=== PATIENT | female | born 1945 | race Caucasian/White ===

== ENCOUNTER → 2019-12-26 14:18 | Outpatient (BNVA) | payer MEDICARE, OTHER, SELFPAY | PROVIDERS: Family Provider Nurse Practitioner Family; PCP Nurse Practitioner Family; Visit Provider Specialist | DX: G20 Parkinson's disease (principal) | CPT/HCPCS: 99213 ==

== ENCOUNTER → 2020-09-17 09:15 | Outpatient (BNVA) | payer MEDICARE, OTHER, SELFPAY | PROVIDERS: Family Provider Nurse Practitioner Family; PCP Nurse Practitioner Family; Visit Provider Nurse Practitioner Family | DX: M20.41 Other hammer toe(s) (acquired), right foot (principal); M20.42 Other hammer toe(s) (acquired), left foot; I10 Essential (primary) hypertension; Z13.6 Encounter for screening for cardiovascular disorders | CPT/HCPCS: 80048; 80061; 82947; 83036 ==

== ENCOUNTER → 2020-12-25 14:18 | Outpatient (BNVA) | payer MEDICARE, OTHER, SELFPAY | PROVIDERS: Family Provider Nurse Practitioner Family; PCP Nurse Practitioner Family; Visit Provider Specialist | DX: G62.9 Polyneuropathy, unspecified (principal); R26.89 Other abnormalities of gait and mobility | CPT/HCPCS: 99214 ==

== ENCOUNTER → 2021-05-01 10:49 | Outpatient (BNVA) | payer MEDICARE, OTHER, SELFPAY | PROVIDERS: Family Provider Nurse Practitioner Family; PCP Nurse Practitioner Family; Visit Provider Nurse Practitioner Family | DX: I10 Essential (primary) hypertension (principal) | CPT/HCPCS: 80048 ==

== ENCOUNTER 2021-11-17 15:54 | Emergency (ER) | payer MEDICARE, OTHER, SELFPAY ==
[2021-11-17 16:01] VITALS: BP 183/73; PULSE 78; RESP 21; TEMP 36.9; O2SAT 99; BMI 22.2
--- NOTE | 2021-11-17 16:08 | XRR_ITS ---
PROCEDURE INFORMATION: Exam: XR Chest Exam date and time: 11/17/2021 4:34 PM Age: 76 years old Clinical indication: Other: Syncope TECHNIQUE: Imaging protocol: XR of the chest. Views: 1 view. COMPARISON: No relevant prior studies available. FINDINGS: Lungs: Lungs are clear bilaterally. Pleural spaces: No pleural effusion. No pneumothorax. Heart/Mediastinum: Stable mild enlargement of the cardiac silhouette. Mediastinal contours are unremarkable. Vasculature: Stable vascular calcifications in the aorta. Stable tortuosity of the aorta. Bones/joints: Unremarkable for age. XR/XR chest 1V portable [id number] IMPRESSION: 1. No acute cardiopulmonary process. 2. Incidental/nonacute findings are listed in the report.
--- NOTE | 2021-11-17 16:08 | CTR_ITS ---
PROCEDURE INFORMATION: Exam: CT Head Without Contrast Exam date and time: 11/17/2021 5:02 PM Age: 76 years old Clinical indication: Alteration of consciousness; Syncope and collapse TECHNIQUE: Imaging protocol: Computed tomography of the head without contrast. Sagittal and coronal reformatted images were created and reviewed. Radiation optimization: All CT scans at this facility use at least one of these dose optimization techniques: automated exposure control; mA and/or kV adjustment per patient size (includes targeted exams where dose is matched to clinical indication); or iterative reconstruction. COMPARISON: No relevant prior studies available. RADIATION DOSE METRICS: Total DLP (mGy-cm): 688.3 FINDINGS: Brain: No acute intracranial hemorrhage. No acute infarct. No intra-axial or extra-axial masses. Garcia-white matter differentiation is preserved. No cerebral edema. No extra-axial fluid collections. No midline shift. Mild atrophy of the brain parenchyma. Mildly decreased attenuation in the deep white matter, consistent with mild chronic microangiopathic change. Old lacunar infarct in the right basal ganglia and right ventricular white matter. No evidence for Chiari 1 malformation. Cerebral ventricles: No hydrocephalus. Paranasal sinuses: Visualized paranasal sinuses are clear. Mastoid air cells: Mastoid air cells are clear bilaterally. Orbital cavities: No acute abnormality in the visualized orbits. Vasculature: Atherosclerotic changes in the visualized arteries. Bones/joints: No acute fracture. Soft tissues: The extracranial soft tissues are unremarkable. CT/CT head wo con* [id number] IMPRESSION: 1. No acute abnormality of the brain. 2. Mild atrophy of the brain parenchyma. 3. Mild chronic white matter microangiopathic change. 4. Old lacunar infarct in the right basal ganglia and right ventricular white matter. 5. Incidental/nonacute findings are listed in the report.
--- NOTE | 2021-11-17 16:09 | ECG_ITS ---
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 Measurements Intervals [place] Rate: 85 P: 74 MA: 196 QRS: 58 QRSD: 86 T: 63 QT: 379 QTc: 451 Interpretive Statements SINUS RHYTHM POSSIBLE RIGHT ATRIAL ENLARGEMENT [0.25mV P-WAVE] POSSIBLE LEFT ATRIAL ENLARGEMENT [-0.1mV P-WAVE IN V1/V2] POSSIBLE LEFT VENTRICULAR HYPERTROPHY [VOLTAGE CRITERIA PLUS LAE OR QRS WIDENING] No previous ECG available for comparison Electronically Signed On 11-17-2021 19:25:49 CDT by Mortzea Bardales M.D. [id number]
[2021-11-17 16:12] VITALS: BP 200/91; PULSE 86; RESP 20; O2SAT 98
--- NOTE | 2021-11-17 16:21 | W.ED.NEUROSD ---
HPI - Neuro Symptoms/Deficit General: Chief Complaint: Neuro Symptoms/Deficit Stated Complaint: SYNCOPE Time Seen by Provider: 11/17/21 15:57 History of Present Illness: 76-year-old female presents following a syncope. Patient brought in by EMS. At this time she has no symptoms. Patient reports that she was at home, suddenly kitchen table and the next thing he knows she woke up between the kitchen table and the sink. Patient has no recollection of what happened. Patient reports she has a history of Parkinson's and took her medication prior to mormon. That she came home and ate around 1230-1. Patient states that this time she has no complaints, she denies any chest pain, shortness of breath or other abnormalities prior to her syncope event. Review of Systems General: Reports: 10 or more systems reviewed and unremarkable except in HPI and below Neuro: Reports: other (The syncope) [facility] ED PFS: Medical History (Updated 11/17/21 @ 18:06 by Mac Colbert DO) Hammertoes of both feet HTN (hypertension) Parkinson disease Surgical History (Updated 09/23/21 @ 10:22 by BRETT Steinberg) H/O mastectomy H/O ovarian cystectomy H/O total knee replacement History of back surgery Family History Mother CAD (coronary artery disease) Diabetes Father CAD (coronary artery disease) Diabetes Social History Smoking and tobacco status: never smoked Physical Exam Const: COMMON NORMALS: no acute distress, average body habitus, patient oriented x3 and healthy appearing Eye: COMMON NORMALS: Equal, round and reactive pupils present and EOMs intact bilaterally PUPIL: Yes Equal, round and reactive pupils present Neck/C-Spine: COMMON NORMALS: full ROM Chest: COMMONS NORMALS: normal inspection of the chest Resp: COMMON NORMALS: normal respiratory effort, No retractions, No use of accessory muscles and clear to auscultation bilaterally AUSCULTATION: clear to auscultation bilaterally Cardio: COMMON NORMALS: regular rate, regular rhythm and Peripheral pulses 2+ throughout RATE: regular rate RHYTHM: regular rhythm PERIPHERAL PULSES: Peripheral pulses 2+ throughout GI: COMMON NORMALS: Normal to inspection, nondistended, normoactive bowel sounds present, Soft to palpation and non-tender PALPATION: Yes Soft to palpation Neuro: COMMON NORMALS: patient oriented x3, CN's II-XII intact bilaterally, moves all extremities, no focal motor deficits and no sensory deficits noted Psych: COMMON NORMALS: mental status grossly normal, Normal thought process present, cooperative, normal affect, speech normal and activity/motor behavior normal SPEECH: Yes normal speech THOUGHT PROCESS: Normal thought process present Skin: COMMON NORMALS: no rashes or lesions noted, no wounds and turgor normal GENERAL SKIN EXAM: no rashes or lesions noted and turgor normal Course Vital Signs: Vital signs: Vital Signs Temperature 98.4 F 11/17/21 16:01 Pulse Rate 101 H 11/17/21 17:23 Respiratory Rate 16 11/17/21 17:23 Blood Pressure 187/65 11/17/21 17:23 Pulse Oximetry 99 11/17/21 17:23 MDM - Neuro Symptoms/Deficit Medical Decision Making Patient with a urinary tract infection otherwise normal findings. We will start her on antibiotic. She should follow-up with her primary care provider in a couple days for recheck of symptoms. Patient was stable and discharged home Lab Data : 11/17/21 16:45 11/17/21 17:20 Radiology Impressions Chest X-Ray 11/17/21 16:08 IMPRESSION: 1. No acute cardiopulmonary process. 2. Incidental/nonacute findings are listed in the report. Head CT 11/17/21 16:08 IMPRESSION: 1. No acute abnormality of the brain. 2. Mild atrophy of the brain parenchyma. 3. Mild chronic white matter microangiopathic change. 4. Old lacunar infarct in the right basal ganglia and right ventricular white matter. 5. Incidental/nonacute findings are listed in the report. Laboratory Results WBC 6.1 10^3/uL (4.0-10.0) 11/17/21 16:45 RBC 4.50 10^6/uL (4.1-5.3) 11/17/21 16:45 Hgb 14.5 g/dL (11.5-15.3) 11/17/21 16:45 Hct 46.7 % (37.0-47.0) 11/17/21 16:45 MCV 103.8 fl (81-99) H 11/17/21 16:45 MCH 32.2 pg (28.0-34.0) 11/17/21 16:45 MCHC 31.0 g/dL (30.0-36.0) 11/17/21 16:45 RDW 13.8 % (12.1-15.1) 11/17/21 16:45 Plt Count 158 10^3/cmm (130-400) 11/17/21 16:45 MPV 11.9 fL (7.4-10.4) H 11/17/21 16:45 Neut % (Auto) 65.8 % 11/17/21 16:45 Lymph % (Auto) 18.8 % 11/17/21 16:45 [place] % (Auto) 12.8 % 11/17/21 16:45 Eos % (Auto) 0.8 % 11/17/21 16:45 Baso % (Auto) 0.7 % 11/17/21 16:45 Neut # (Auto) 4.02 10^3/uL (1.8-7.7) 11/17/21 16:45 Lymph # (Auto) 1.2 10^3/uL (0.8-4.8) 11/17/21 16:45 [place] # (Auto) 0.8 10^3/uL (0.2-0.9) 11/17/21 16:45 Eos # (Auto) 0.1 10^3/uL (0.0-0.8) 11/17/21 16:45 Baso # (Auto) 0.0 10^3/uL (0.0-0.1) 11/17/21 16:45 Nucleated RBC % (auto) 0 % 11/17/21 16:45 Nucleated RBCs # 0.0 /100WBC 11/17/21 16:45 Sodium 141 mmol/L (136-145) 11/17/21 17:20 Potassium 4.0 mmol/L (3.5-5.1) 11/17/21 17:20 Chloride 104 mmol/L (98-107) 11/17/21 17:20 Carbon Dioxide 25 mmol/L (22-29) 11/17/21 17:20 Anion Gap 16.0 (5-19) 11/17/21 17:20 BUN 21 mg/dL (8-23) 11/17/21 17:20 Creatinine 0.7 mg/dL (0.5-0.9) 11/17/21 17:20 GFR Calculation Not Reportable 11/17/21 17:20 Glucose 100 mg/dL (65-115) 11/17/21 17:20 Calculated Osmolality 295 mOsm/kg (285-295) 11/17/21 17:20 Calcium 9.0 mg/dL (8.5-10.5) 11/17/21 17:20 Magnesium 2.3 mg/dL (1.7-2.3) 11/17/21 17:20 Total Bilirubin 0.4 mg/dL (0.15-1.2) 11/17/21 17:20 AST 21 U/L (0-32) 11/17/21 17:20 ALT < 5 U/L (0-33) 11/17/21 17:20 Alkaline Phosphatase 101 IU/L (35-105) 11/17/21 17:20 Troponin T Gen 5 ng/L 17 ng/L (0-10) H 11/17/21 17:20 C-Reactive Protein 3.0 mg/L (0.0-4.9) 11/17/21 17:20 Total Protein 7.1 g/dL (6.6-8.7) 11/17/21 17:20 Albumin 4.3 g/dL (3.5-5.2) 11/17/21 17:20 Globulin 2.8 g/dL (1.3-4.6) 11/17/21 17:20 Urine Color Straw (Yellow) 11/17/21 16:28 Urine Appearance Clear (CLEAR) 11/17/21 16:28 Urine pH 7 (5-7) 11/17/21 16:28 Ur Specific [place] 1.010 (1.005-1.030) 11/17/21 16:28 Urine Protein Neg (Negative) 11/17/21 16:28 Urine Glucose (UA) Norm (Normal) 11/17/21 16:28 Urine Ketones Negative (Negative) 11/17/21 16:28 Urine Blood Neg (Negative) 11/17/21 16:28 Urine Nitrate Positive (Negative) H 11/17/21 16:28 Urine Bilirubin Neg (Negative) 11/17/21 16:28 Urine Urobilinogen Norm mg/dL (Negative) 11/17/21 16:28 Ur Leukocyte Esterase Negative (Negative) 11/17/21 16:28 Urine RBC 0-4 /hpf (0-2) H 11/17/21 16:28 Urine WBC 5-10 /hpf (0-5) H 11/17/21 16:28 Ur Squamous Epith Cells 0-4 /hpf (0-5) H 11/17/21 16:28 Amorphous Sediment Not Reportable 11/17/21 16:28 Urine Bacteria 3+ /hpf (NONE) H 11/17/21 16:28 Discharge Plan Discharge Patient Disposition: Home Clinical Impression: Acute UTI, Syncope and collapse Condition: Stable Prescriptions: New cephalexin 500 mg capsule 500 mg PO BID 7 Days Qty: 14 0RF No Action acetaminophen [Tylenol Extra Strength] 500 mg tablet 500 mg PO Q6H PRN0RF calcium carbonate-vitamin D3 [Calcium 600 with Vitamin D3] 600 mg(1,500mg) -500 unit capsule PO DAILY 0RF multivitamin Tablet 1 tab PO DAILY 0RF carbidopa-levodopa 25-100 mg tablet See Rx Instructions .ROUTE .COMPLEX Qty: 90 0RF Dose Instruction: TAKE 1 TABLET BY MOUTH THREE TIMES DAILY Rx Instructions: TAKE 1 TABLET BY MOUTH THREE TIMES DAILY carvedilol 25 mg tablet See Rx Instructions .ROUTE .COMPLEX Qty: 180 3RF Dose Instruction: TAKE 1 TABLET BY MOUTH TWICE DAILY (MUST TAKE WITH A MEAL/FOOD) Rx Instructions: TAKE 1 TABLET BY MOUTH TWICE DAILY (MUST TAKE WITH A MEAL/FOOD) enalapril maleate 10 mg tablet See Rx Instructions .ROUTE .COMPLEX Qty: 180 3RF Dose Instruction: TAKE 1 TABLET BY MOUTH TWICE DAILY Rx Instructions: TAKE 1 TABLET BY MOUTH TWICE DAILY (DME) trapeze bar See Rx Instructions .Route .MEDSUPPLY Qty: 1 0RF Rx Instructions: Utilize as Directed Discharge Orders: Discharge ED (Routine); Ordered 11/17/21 Ordered By: Mac Colbert Referrals: Myla Bella FNP [Primary Care Provider] - Discharge Diet: Usual diet Discharge Activity: Resume usual activity Patient Instructions: Urinary Tract Infection in Women (DC), Syncope (DC), Opioid Safety Activity Restrictions/Additional Instructions: follow up with pcp Coding Level of Care Code ED Percussion Tuner for Chg Fwd Exam Comprehensive
[2021-11-17 16:42] VITALS: BP 200/91; PULSE 89; RESP 19; O2SAT 98
[2021-11-17 16:48] LABS: Add Urine Culture? Yes; Add Urine Microscopic? YES; Bacteria Urine 3+ /hpf; Bilirubin Urine Neg (Negative); Blood Urine Neg (Negative); Glucose Urine UA Norm (Normal); Ketones Urine Negative (Negative); Leukocyte Esterase Urine Negative (Negative); Nitrate Urine Positive (Negative); Protein Urine Neg (Negative); RBC Urine 0-4 /hpf (0-2); Squamous Epithelial Cell Urine 0-4 /hpf (0-5); Urine Appearance Clear (CLEAR); Urine Color Straw (Yellow); Urobilinogen Urine Norm (Negative); pH Urine 7 (5-7)
[2021-11-17 16:52] LABS: Basophils % 0.7 %; Eosinophils # 0.1 10^3/uL (0.0-0.8); Eosinophils % 0.8 %; Hematocrit 46.7 % (37.0-47.0); Hemoglobin 14.5 g/dL (11.5-15.3); Lymphocytes # 1.2 10^3/uL (0.8-4.8); Lymphocytes % 18.8 %; Mean Corpuscular Hemoglobin 32.2 pg (28.0-34.0); Mean Corpuscular Volume 103.8 fl (81-99); Mean Platelet Volume 11.9 fL (7.4-10.4); Monocytes # 0.8 10^3/uL (0.2-0.9); Monocytes % 12.8 %; Neutrophils # 4.02 10^3/uL (1.8-7.7); Neutrophils % 65.8 %; Nucleated Red Blood Cells % 0 %; Platelet Count 158 10^3/cmm (130-400); Red Cell Distribution Width 13.8 % (12.1-15.1); White Blood Count 6.1 10^3/uL (4.0-10.0)
[2021-11-17 17:23] VITALS: BP 187/65; PULSE 101; RESP 16; O2SAT 99
[2021-11-17 17:54] LABS: Troponin T (5th) Once 17 ng/L (0-10)
[2021-11-17 17:58] LABS: Alanine Aminotransferase < 5 U/L (0-33); Albumin Level 4.3 g/dL (3.5-5.2); Alkaline Phosphatase 101 IU/L (35-105); Aspartate Amino Transferase 21 U/L (0-32); Blood Urea Nitrogen 21 mg/dL (8-23); Carbon Dioxide 25 mmol/L (22-29); Chloride 104 mmol/L (98-107); Globulin 2.8 g/dL (1.3-4.6); Glucose 100 mg/dL (65-115); Magnesium 2.3 mg/dL (1.7-2.3); Osmolality Calculated 295 mOsm/kg (285-295); Sodium 141 mmol/L (136-145); Total Bilirubin 0.4 mg/dL (0.15-1.2); Total Protein 7.1 g/dL (6.6-8.7)
--- NOTE | 2021-11-17 19:24 | PC.NURSE ---
HOUSEKEEPING ACCIDENTALLY THREW DISCHARGE SIGNATURE PAGE INTO SHREDS BOX.
== END 2021-11-17 19:25 | disposition home or self-care (01) ==
PROVIDERS: Emergency Provider Student in an Organized Health Care Education/Training Program; Family Provider Nurse Practitioner Family; PCP Nurse Practitioner Family
DX: N39.0 Urinary tract infection, site not specified (principal); R55 Syncope and collapse; G20 Parkinson's disease; I10 Essential (primary) hypertension
CPT/HCPCS: 70450; 71045; 80053; 81001; 83735; 84484; 85025; 86140; 87077; 87086; 87186; 93005; 99283

== ENCOUNTER → 2021-12-25 09:42 | Outpatient (BNVA) | payer MEDICARE, OTHER, SELFPAY | PROVIDERS: Family Provider Nurse Practitioner Family; PCP Nurse Practitioner Family; Visit Provider Specialist | DX: G20 Parkinson's disease (principal); G62.9 Polyneuropathy, unspecified; R55 Syncope and collapse; M25.361 Other instability, right knee | CPT/HCPCS: 99214; 99215 ==

== ENCOUNTER → 2021-12-30 12:48 | Outpatient (BNVA) | payer MEDICARE, OTHER, SELFPAY | PROVIDERS: Family Provider Nurse Practitioner Family; PCP Nurse Practitioner Family; Visit Provider Internal Medicine Cardiovascular Disease | DX: R55 Syncope and collapse (principal); I49.1 Atrial premature depolarization; I49.3 Ventricular premature depolarization | CPT/HCPCS: 93229 ==

== ENCOUNTER 2022-02-07 09:13 | Outpatient (CLI) | payer MEDICARE, OTHER, SELFPAY ==
--- NOTE | 2022-02-07 09:30 | USCV_ITS ---
Luly Castro Age: 76 Gender: F : 1945 Exam Date: 02/07/2022 09:37 Ordering Phys: Abeba Brito MD Technologist: ABBI [place] [facility] [place]: [place] BP: 178 / 76 HR: 66 Rhythm: Sinus Technical Quality: MEASUREMENTS (Male / Female) Normal Values 2D ECHO LV Diastolic Diameter PLAX 4.3 cm 4.2 - 5.9 / 3.9 - 5.3 cm LV Systolic Diameter PLAX 3.3 cm IVS Diastolic Thickness 1.1 cm 0.6 - 1.0 / 0.6 - 0.9 cm IVS Systolic Thickness 1.2 cm LVPW Diastolic Thickness 1.2 cm 0.6 - 1.0 / 0.6 - 0.9 cm LVPW Systolic Thickness 1.3 cm LVOT Diameter 2.0 cm LV Ejection Fraction 2D Teich 46.3 % LV Ejection Fraction MOD 2C 65.6 % LV Ejection Fraction 2C AL 66.7 % LA Diameter 4.0 cm RA Width 4.3 cm RA Height 4.7 cm Aorta at Sinotubular Diameter 2.7 cm M-MODE MV E Point Septal Separation 0.9 cm DOPPLER AV Peak Velocity 111.0 cm/s LVOT Peak Velocity 90.0 cm/s AV Area Cont Eq vti 2.2 cm squared AV Area Cont Eq pk 2.6 cm squared MV Area PHT 3.1 cm squared Mitral E to A Ratio 0.8 MV E' Velocity 44.0 cm/s Mitral E to MV E' Ratio 11.8 Mitral E to LV E' Lateral Ratio 11.8 Mitral E to LV E' Septal Ratio 11.8 TR Peak Velocity 289.3 cm/s TR Peak Gradient 33.5 mmHg Right Atrial Pressure 8.0 mmHg Pulmonary Artery Systolic Pressu 41.5 mmHg PV Peak Velocity 105.0 cm/s FINDINGS Left Ventricle Normal left ventricular size. LV systolic function is normal with EF of 55-60 %. No regional wall motion abnormalities are seen. Grade 1 diastolic dysfunction Right Ventricle The right ventricle is normal in size and function. Right Atrium The right atrium is normal in size. Left Atrium The left atrium is normal in size. Mitral Valve Structurally normal mitral valve without significant stenosis or prolapse. There is mild mitral regurgitation. Aortic Valve Structurally normal aortic valve without significant sclerosis or stenosis. There is trace aortic regurgitation. Tricuspid Valve Structurally normal tricuspid valve without significant stenosis. Trace tricuspid regurgitation. Pulmonary artery systolic pressure is normal. Pulmonic Valve Not well visualized Pericardium Normal pericardium without effusion. Aorta Normal ascending aorta dimension. IVC CONCLUSIONS LV systolic function is normal with EF of 55-60 %. Grade 1 diastolic dysfunction. Mild mitral regurgitation. Trace aortic regurgitation. Trace tricuspid regurgitation. No comparison studies are available Morteza Bardales MD (Electronically Signed) Final Date: 16 February 2022 00:27 S
== END 2022-02-07 09:14 | disposition home or self-care (01) ==
LOC: RAD 09:13
PROVIDERS: Family Provider Nurse Practitioner Family; PCP Nurse Practitioner Family; Visit Provider Specialist
DX: R00.2 Palpitations (principal); I08.3 Combined rheumatic disorders of mitral, aortic and tricuspid valves
CPT/HCPCS: 93306

== ENCOUNTER → 2022-06-30 10:16 | Outpatient (BNVA) | payer MEDICARE, OTHER, SELFPAY | PROVIDERS: Family Provider Nurse Practitioner Family; PCP Nurse Practitioner Family; Visit Provider Specialist | DX: G20 Parkinson's disease (principal); L57.0 Actinic keratosis; M19.90 Unspecified osteoarthritis, unspecified site; G72.9 Myopathy, unspecified; G62.9 Polyneuropathy, unspecified; R53.1 Weakness; Z91.81 History of falling; S46.291A Other injury of muscle, fascia and tendon of other parts of biceps, right arm, initial encounter; X58.XXXA Exposure to other specified factors, initial encounter | CPT/HCPCS: 99215 ==

== ENCOUNTER 2022-07-15 16:00 | Emergency (ER) | payer MEDICARE, OTHER, SELFPAY ==
[2022-07-15 16:20] VITALS: BP 176/82; PULSE 98; RESP 16; TEMP 36.9; O2SAT 99
--- NOTE | 2022-07-15 16:32 | ED_ITS ---
HPI - Fall General: Chief Complaint: Fall Stated Complaint: Weakness, Falls Time Seen by Provider: 07/15/22 16:32 History of Present Illness: Patient is in today after a fall. Patient reports that yesterday she fell 3 different times. She reports that 1 time she was trying to put her coat on and lost her balance falling onto her right side on the floor. She reports that the next time she was bending over to pick something up off the floor lost her balance and fell behind the heater hitting her head on the heater. She denies any loss of consciousness. She reports that the next time she fell she was walking to the bathroom and her feet got stuck would not move, which is common with her Parkinson's, and she fell forward onto her right side again. She reports that she does fall with Parkinson's but usually is able to be more steady than she was yesterday. She reports that she has not had any new changes no fever. She denies any urinary symptoms. She reports that she does not have any headache since the fall. She has only minimal right shoulder and right side back pain. She reports that she is able to bear weight and is not having any hip or knee pain. She chronically has foot pain but she states that this is no different from her baseline. She denies any neurologic changes. She feels like her Parkinson's is worsening somewhat. She has had a more pronounced tremor over the past couple of weeks. She denies that she was getting dizzy causing her falls. She denies passing out. Associated symptoms-after fall: Reports difficulty walking; Denies abdominal pain or chest pain Review of Systems Const: Denies: fever(s), chills or body aches Card: Denies: chest pain, palpitations or irregular heart rhythm Resp: Denies: dyspnea, productive cough or non-productive cough GI: Denies: abdominal pain, nausea or vomiting : Denies: flank pain, difficulty voiding or dysuria Musc: Reports: other (Parkinson's with generalized weakness) Neuro: Reports: lack of coordination, difficulty walking and other (Parkinson's) [facility] ED PFSH: Medical History Hammertoes of both feet HTN (hypertension) Parkinson disease Surgical History H/O mastectomy H/O ovarian cystectomy H/O total knee replacement History of back surgery Family History Mother CAD (coronary artery disease) Diabetes Father CAD (coronary artery disease) Diabetes Social History Smoking and tobacco status: never smoked Physical Exam Const: COMMON NORMALS: no acute distress, patient oriented x3 and alert Eye: COMMON NORMALS: Equal, round and reactive pupils present, EOMs intact bilaterally and conjunctivae normal CONJUNCTIVA: Yes conjunctivae normal PUPIL: Yes Equal, round and reactive pupils present Neck/C-Spine: COMMON NORMALS: no JVD Resp: COMMON NORMALS: normal respiratory effort, No use of accessory muscles and clear to auscultation bilaterally AUSCULTATION: clear to auscultation bilaterally Cardio: COMMON NORMALS: no JVD, regular rate, regular rhythm, S1 normal heart sound present and S2 normal heart sound present RATE: regular rate RHYTHM: regular rhythm HEART SOUNDS: S1 normal heart sound present and S2 normal heart sound present GI: COMMON NORMALS: Normal to inspection, nondistended, normoactive bowel sounds present, Soft to palpation and non-tender PALPATION: Yes Soft to palpation : COMMON NORMALS: Yes no CVA tenderness BLADDER/KIDNEY EXAM: Yes no CVA tenderness Back/Pelvis: COMMON NORMALS: no CVA tenderness OTHER: No vertebral point tenderness. There is some mild tenderness to the right upper mid back musculature. Extremity: NARRATIVE EXTREMITY EXAM: No tenderness to palpation bilateral hips and knees, thighs, shins, and calves. Neuro: COMMON NORMALS: patient oriented x3, CN's II-XII intact bilaterally, moves all extremities and no focal motor deficits SENSORIUM/ORIENTATION: Yes alert OTHER: Patient with bilateral upper extremity tremor. Course Vital Signs: Vital signs: Vital Signs Temperature 98.5 F 07/15/22 16:20 Pulse Rate 79 07/15/22 18:40 Respiratory Rate 15 07/15/22 18:40 Blood Pressure 148/78 07/15/22 18:40 Pulse Oximetry 99 07/15/22 18:40 Oxygen Delivery Me thod 07/15/22 18:40 MDM - Fall Medical Decision Making Consider fall, weakness, Parkinson's Patient fell over 24 hours ago and hit her head. She has had no neurologic changes that she has noted since that time. She is alert and oriented in no acute distress at this time. She denies any headache. CT head without contrast done given patient's age and fall. CT head is negative for acute intracranial abnormality. Patient is really not having significant pain anywhere in her extremities and she is able to bear weight. At this point she does not wish to have further imaging. UA dip is negative for indicators of bacterial infection. I recommend the patient follow-up with primary care provider for ongoing evaluation and management of patient's weakness associated with her Parkinson's. Advised patient to return to the ER as needed for any new or worsening symptoms. Patient and family voiced understanding of all instruction. Lab Data Radiology Impressions Head CT 07/15/22 17:56 IMPRESSION: 1. No acute intracranial abnormality. 2. Mild to moderate age-related changes. Laboratory Results Urine Color Light yellow (Yellow) 07/15/22 16:17 Urine Appearance Clear (CLEAR) 07/15/22 16:17 Urine pH 7 (5-7) 07/15/22 16:17 Ur Specific [place] 1.010 (1.005-1.030) 07/15/22 16:17 Urine Protein Neg (Negative) 07/15/22 16:17 Urine Glucose (UA) Norm (Normal) 07/15/22 16:17 Urine Ketones Negative (Negative) 07/15/22 16:17 Urine Blood Neg (Negative) 07/15/22 16:17 Urine Nitrate Negative (Negative) 07/15/22 16:17 Urine Bilirubin Neg (Negative) 07/15/22 16:17 Urine Urobilinogen Neg mg/dL (Negative) 07/15/22 16:17 Ur Leukocyte Esterase Negative (Negative) 07/15/22 16:17 Discharge Plan Discharge Patient Disposition: Home Clinical Impression: Fall, Head injury, closed Condition: Stable Prescriptions: No Action acetaminophen [Tylenol Extra Strength] 500 mg tablet 500 mg PO Q6H PRN calcium carbonate-vitamin D3 [Calcium 600 with Vitamin D3] 600 mg(1,500mg) - 500 unit capsule PO DAILY multivitamin Tablet 1 tab PO DAILY (DME) trapeze bar See Rx Instructions .Route .MEDSUPPLY Qty: 1 0RF Rx Instructions: Utilize as Directed enalapril maleate 10 mg tablet See Rx Instructions .ROUTE .COMPLEX Qty: 180 3RF Dose Instruction: TAKE 1 TABLET BY MOUTH TWICE DAILY Rx Instructions: TAKE 1 TABLET BY MOUTH TWICE DAILY carbidopa-levodopa 25-100 mg tablet See Rx Instructions .ROUTE .COMPLEX Qty: 270 3RF Dose Instruction: TAKE 1 TABLET BY MOUTH 3 TIMES DAILY Rx Instructions: TAKE 1 TABLET BY MOUTH 3 TIMES DAILY carvedilol 25 mg tablet See Rx Instructions .ROUTE .COMPLEX Qty: 180 3RF Dose Instruction: TAKE 1 TABLET BY MOUTH TWICE DAILY (MUST TAKE WITH A MEAL/FOOD) Rx Instructions: TAKE 1 TABLET BY MOUTH TWICE DAILY (MUST TAKE WITH A MEAL/FOOD) Discharge Orders: Discharge ED (Routine); Ordered 07/15/22 Ordered By: Salima Miles Referrals: Myla Bella FNP [Primary Care Provider] - Discharge Diet: Usual diet Discharge Activity: Increase activity as tolerated Activity Restrictions/Additional Instructions: I recommend follow-up with primary care provider for continued evaluation and management of Parkinson's and weakness that you have been experiencing over the recent past. Return to the ER for any new or worsening symptoms. Coding Level of Care Code ED Foreign Student Adviser for Jenn Puentes Exam Comprehensive
[2022-07-15 17:09] LABS: Add Urine Microscopic? NO; Charge for UA Resulting for Rev
[2022-07-15 17:27] LABS: Bilirubin Urine Neg (Negative); Blood Urine Neg (Negative); Glucose Urine UA Norm (Normal); Ketones Urine Negative (Negative); Leukocyte Esterase Urine Negative (Negative); Nitrate Urine Negative (Negative); Protein Urine Neg (Negative); Urine Appearance Clear (CLEAR); Urine Color Light Yellow (Yellow); Urobilinogen Urine Neg (Negative); pH Urine 7 (5-7)
--- NOTE | 2022-07-15 17:56 | CTR_ITS ---
PROCEDURE INFORMATION: Exam: CT Head Without Contrast Exam date and time: 07/15/2022 6:18 PM Age: 76 years old Clinical indication: Condition or disease; Other: Parkinsons; Additional info: Fall TECHNIQUE: Imaging protocol: Computed tomography of the head without contrast. Radiation optimization: All CT scans at this facility use at least one of these dose optimization techniques: automated exposure control; mA and/or kV adjustment per patient size (includes targeted exams where dose is matched to clinical indication); or iterative reconstruction. COMPARISON: CT head wo con* [id number] 11/17/2021 5:02 PM RADIATION DOSE METRICS: Total DLP (mGy-cm): 1043.68 FINDINGS: Brain: No focal hemorrhage or midline shift is identified. The ventricles and parenchyma show moderate atrophy and mild chronic bicerebral white matter ischemic change. Cerebral ventricles: No ventriculomegaly or evidence of hydrocephalus. Paranasal sinuses: No evidence of acute sinusitis. Mastoid air cells: Visualized mastoid air cells are well aerated. Bones/joints: No displaced skull fracture is noted. Soft tissues: Unremarkable. Vasculature: Advanced diffuse vascular calcification noted. CT/CT head wo con* [id number] IMPRESSION: 1. No acute intracranial abnormality. 2. Mild to moderate age-related changes.
[2022-07-15 18:40] VITALS: BP 148/78; PULSE 79; RESP 15; O2SAT 99
== END 2022-07-15 19:15 | disposition home or self-care (01) ==
PROVIDERS: Emergency Provider Nurse Practitioner Family; PCP Nurse Practitioner Family
DX: S09.90XA Unspecified injury of head, initial encounter (principal); W19.XXXA Unspecified fall, initial encounter; R29.6 Repeated falls
CPT/HCPCS: 70450; 81003; 99284

== ENCOUNTER → 2022-08-01 10:29 | Outpatient (BNVA) | payer MEDICARE, OTHER, SELFPAY | PROVIDERS: PCP Nurse Practitioner Family; Referring Provider Specialist; Visit Provider Dermatology | DX: D48.9 Neoplasm of uncertain behavior, unspecified (principal); L82.1 Other seborrheic keratosis | CPT/HCPCS: 88305 ==

== ENCOUNTER → 2022-09-30 09:42 | Outpatient (BNVA) | payer MEDICARE, OTHER, SELFPAY | PROVIDERS: PCP Nurse Practitioner Family; Visit Provider Specialist | DX: G20 Parkinson's disease (principal); G62.9 Polyneuropathy, unspecified; M25.361 Other instability, right knee | CPT/HCPCS: 99214 ==

== ENCOUNTER → 2022-10-22 14:42 | Outpatient (BNVA) | payer MEDICARE, OTHER, SELFPAY | PROVIDERS: PCP Nurse Practitioner Family; Referring Provider Specialist; Visit Provider Specialist | DX: M17.11 Unilateral primary osteoarthritis, right knee (principal) | CPT/HCPCS: 73560; 73565; 99204 ==

== ENCOUNTER 2022-11-07 15:34 | Outpatient (CLI) | payer MEDICARE, OTHER, SELFPAY ==
--- NOTE | 2022-11-07 16:30 | CT_ITS ---
WS: [id number] CT RIGHT knee, noncontrast HISTORY: RIGHT KNEE PAIN TECHNIQUE: Protocol for LISA total knee replacement has been obtained. This includes axial imaging th rough the RIGHT hip, RIGHT knee and RIGHT ankle. DLP: 1046.75 mGy.cm COMPARISON: None available. Pelvis: Mild narrowing of the SI joints. No destructive bone lesions. Diverticular disease without ac robinson diverticulitis. RIGHT knee: Marked narrowing of all 3 compartments with large hypertrophic osteophytes. Lateral sublu xation of the patella. Atherosclerosis in the femoral and popliteal artery. Small joint effusion. RIGHT ankle: Negative. CT/CT knee RT [employer] IMPRESSION: CT imaging provided for [employer] robotic total knee replacement.
== END 2022-11-07 15:35 | disposition home or self-care (01) ==
LOC: RAD 15:43
PROVIDERS: PCP Nurse Practitioner Family; Visit Provider Specialist
DX: M25.561 Pain in right knee (principal)
CPT/HCPCS: 73700

== ENCOUNTER → 2022-12-08 12:46 | Outpatient (BNVA) | payer MEDICARE, OTHER, SELFPAY | PROVIDERS: PCP Nurse Practitioner Family; Visit Provider Specialist | DX: Z01.818 Encounter for other preprocedural examination (principal); M17.11 Unilateral primary osteoarthritis, right knee | CPT/HCPCS: 36415; 80053; 85025; 99214 ==

== ENCOUNTER → 2022-12-15 10:47 | Outpatient (BNVA) | payer MEDICARE, OTHER, SELFPAY | PROVIDERS: PCP Nurse Practitioner Family; Referring Provider Specialist; Visit Provider Family Medicine | DX: Z01.818 Encounter for other preprocedural examination (principal) | CPT/HCPCS: 81003 ==

== ENCOUNTER 2022-12-23 11:40 | Observation (INO) | payer MEDICARE, OTHER, SELFPAY ==
[2022-12-15 13:20] VITALS: BMI 20.9
--- NOTE | 2022-12-15 14:21 | ANES.PREANE2 ---
Pre-Anesthetic Assessment Height/Weight: Height 1.68 m Weight 58.967 kg Operation Date: 12/23/22 07:00 Proposed Procedures p RIGHT TOTAL KNEE WITH LISA GUIDANCE 57507,M17.10(Right) - Kaycee Stout MD Familial anesthetic complications: none Was Beta Jordan taken within 24 hours: Yes Was Clonidine taken within 24 hours: N/A Social No alcohol and No tobacco Exam alert, oriented x 3, clear to auscultation bilaterally and regular rate & rhythm Airway Submandibular: within normal limits Cervical ROM: within normal limits Mallampati: Class II Dentition: false CV/HEM Hypertension h/o CHF reported EF of 12% CONCLUSIONS ?LV systolic function is normal with EF of 55-60 %.? ?Grade 1 diastolic dysfunction. ?Mild mitral regurgitation. ?Trace aortic regurgitation. ?Trace tricuspid regurgitation. ?No comparison studies are available ?Morteza Bardales MD ?(Electronically Signed) ?Final Date:? ? ? 16 February 2022 [facility] [place] Osteoarthritis/DJD h/o extensive spine surgery Neuropsych Neuropathy Parkinson's Anesthetic Plan ASA status: 3 Anesthesia: General and Regional (specify below) (adductor blk) Medications/Allergies Home Medications Medication Instructions Recorded Confirmed Last Taken Type acetaminophen 500 mg tablet 500 mg PO Q6H PRN Pain 12/26/19 12/15/22 Unknown History (Tylenol Extra Strength) calcium carbonate 600 mg-vitamin 600 cap PO DAILY 12/26/19 12/15/22 Unknown History D3 12.5 mcg (500 unit) capsule (Calcium 600 with Vitamin D3) multivitamin 1 tab PO DAILY 12/26/19 12/15/22 Unknown History sergio bar #1 ea 10/08/21 12/15/22 Unknown Rx carbidopa 25 mg-levodopa 100 mg See Rx Instructions .Route 03/25/22 12/15/22 Unknown Rx tablet .COMPLEX #270 tabs enalapril maleate 10 mg tablet See Rx Instructions .Route 03/25/22 12/15/22 Unknown Rx .COMPLEX #180 tabs carvedilol 25 mg tablet See Rx Instructions .Route 06/23/22 12/15/22 Unknown Rx .COMPLEX #180 tabs Allergies Allergy/AdvReac Type Severity Reaction Status Date / Time No Known Allergies Allergy Verified 12/15/22 11:19 [facility] Anesthesia Medical History Hammertoes of both feet HTN (hypertension) Parkinson disease Surgical History H/O mastectomy H/O ovarian cystectomy H/O total knee replacement History of back surgery Family History Mother CAD (coronary artery disease) Diabetes Father CAD (coronary artery disease) Diabetes Social History Smoking and tobacco status: never smoked Female Reproductive History Spontaneous abortions: No Data Anesthesia Cardiac Studies: Echocardiogram 02/07/22 Cardiac Event Monitor 12/31/21
[2022-12-23] VITALS (21 sets, daily range): BP systolic 96–205; BP diastolic 54–88; PULSE 72–102; RESP 10–18; TEMP 36.1–37.3; O2SAT 95–100
[2022-12-23] MEDS: acetaminophen 1,000 MG/100 ML PIGGYBACK 400 MG IV ×3 (06:07→22:13)
[2022-12-23] MEDS: sodium chloride 0.9% 1,000 ML 30 ML IV (06:07)
[2022-12-23] MEDS: CELEcoxib 200 mg Capsule 400 MG PO (06:07)
[2022-12-23] MEDS: gabapentin 300 mg Capsule PO (06:07)
--- NOTE | 2022-12-23 06:47 | ANES.PAUD2 ---
Pre-Anesthetic Update Pre-Anesthetic Assessment: Date of Surgery/Procedure: 12/23/22 Proposed Procedure: Operation Date: 12/23/22 07:00 Proposed Procedures p RIGHT TOTAL KNEE WITH LISA GUIDANCE 40697,M17.10(Right) - Kaycee Stout MD Any changes to Pre-Anesthetic Assessment?: No Last Intake: Intake Last Liquid Date 12/22/22 Last Liquid Time 21:00 Last Solid Date 12/22/22 Last Solid Time 18:45 Vitals: Temperature 99.1 F 12/23/22 05:44 Temperature Source Temporal Artery S can 12/23/22 05:44 Pulse Rate 102 H 12/23/22 05:44 Pulse Rhythm Regular 12/23/22 06:00 Pulse Strength 3+ Normal 12/23/22 06:00 Respiratory Rate 18 12/23/22 05:44 Blood Pressure 193/87 12/23/22 06:12 Blood Pressure Nikky n 122 12/23/22 06:12 Pulse Oximetry 100 12/23/22 05:44 Oxygen Delivery Me thod Room Air 12/23/22 06:00 Exam: Pre-Anes Outpt Exam: alert, oriented x 3, clear to auscultation bilaterally and regular rate & rhythm Cardiac Studies: Echocardiogram 02/07/22 Cardiac Event Monitor 12/31/21
--- NOTE | 2022-12-23 06:47 | ANES.PROC ---
Anesthesia Procedures Procedure/Date: 12/23/22 Nerve Block ^: Nerve Block 1: Main Anesthesia: general anesthesia Time Out Performed: Yes Consent: requested by attending/covering physician, from patient, from other, risks and benefits reviewed and patient agrees to proceed Nerve block location: adductor canal (R) Anesthesia monitors applied: pulse oximetry, EKG, BP cuff and oxygen Nerve block position: supine Anesthetic Used: ropivicaine 0.5% (30 ml) and with decadron (4 mg) Ultrasound used to: recognize landmarks and visualize and ID femerol nerve Nerve Stimulator Used?: No Interscalene/Femoral BLK: 4 stimuplex 21 g needle used for position and inplane approach, visualize local anesthetic spread and no vascular puncture identified Injection: neg aspiration of heme Patient Tolerated Procedure: well and no complications Complications: none
--- NOTE | 2022-12-23 06:50 | W.PM.OPSUD ---
Surgery/Procedure H&P Update DATE OF PROCEDURE: December 23, 2022 DATE H&P PERFORMED: 12/15/22 H&P UPDATE INFORMATION: I have reviewed H&P completed within last 30 days, I have examined patient prior to procedure, No changes to prior documentation and H&P is in [facility] [place] on date indicated PLANNED PROCEDURE: Operation Date: 12/23/22 07:00 Proposed Procedures p RIGHT TOTAL KNEE WITH LISA GUIDANCE 78712,M17.10(Right) - Kaycee Stout MD Related Problem List Diagnoses (1) Primary osteoarthritis of right knee:
[2022-12-23] MEDS: ceFAZolin 2,000 MG in sodium chloride 0.9% (plus) 50 ML 100 MG IV ×3 (07:30→23:19)
[2022-12-23] MEDS: tranexamic acid 1,000 mg/10mL SDV 1000 MG IV (07:39)
[2022-12-23] MEDS: ceFAZolin 1,000 mg SDV 2000 MG IRRIGATION (08:08)
[2022-12-23] MEDS: sodium chloride 0.9% 50 mL Bag XX (08:15)
[2022-12-23] MEDS: vancomycin 1,000 MG SDV 1000 MG XX (08:22)
[2022-12-23] MEDS: hyDRALAzine 20 mg/mL INJ 1 mL 5 MG IVP (09:00)
--- NOTE | 2022-12-23 11:00 | PM.OP ---
Operative Report Date of procedure: December 23, 2022 Pre-op diagnosis: Primary osteoarthritis right knee Post-op diagnosis: Primary osteoarthritis right knee Post-op findings: Severe osteoarthritis with large osteophytes as well as significant flexion contracture (18 degrees) and varus deformities. Patellar deformity with osteophytes superiorly nearly as large as the patella. Large loose body which was removed as well Procedure done: Right total knee arthroplasty with Marty guidance Implants: The Noble total knee system with a size 4 triathlon beaded cruciate retaining femur right, a triathlon titanium tibial component size 4 beaded, a triathlon X3 tibial bearing CS insert size 4 X 14 mm and a beaded triathlon titanium asymmetric patella size 35 x 10 mm Specimens removed/disposition: Bone, disposed of Pathology: none sent Surgeon: Kaycee Stout Promotion Producer: [facility] operating room technicians Anesthesia: General (Intubated, ASA 3) Estimated blood loss (mL): 500 Tourniquet time (min): 0 (Not utilized) IV fluids (mL): 1,200 Urine output (mL): 400 Complications: None Findings: See above Condition: stable Disposition: PACU (Then to floor for postoperative rehabilitation and pain management) Brief History: This is a 77 year old female patient presenting today for right total knee arthroplasty with Marty assistance. Patient presents stating she utilizes a walker at all times. She reports right knee pain that has been on going for several years with no known injury. She reports right knee pain, stiffness and swelling. She reports a popping and grinding sensation. She reports a sensation of instability. She explains she has difficulty picking up her right lower extremity due to weakness. She states she has difficulty standing and walking for long periods at a time. She reports difficulty going up and down steps. She reports a surgical history of a left total knee replacement in 2010 at [facility] in [place]. She denies any prior treatment for her right knee. As noted, the patient has significant limitations in activities of daily living as well as significant pain. She wishes to proceed with total knee arthroplasty. Risks and complications are discussed with her. Consents are signed preoperatively in the office. Questions were answered. Procedure: The patient was brought to the operating theater, and after undergoing general anesthesia per LMA, ASA 3, as well as an adductor canal block, the right lower extremity was prepped with Dura-Prep and draped in usual fashion following placement of a tourniquet high on the leg. The leg was then draped free.? Tourniquet was not elevated during the case.? A surgical pause was performed, and at the time of the surgical pause, we confirmed the site and side of surgery. Additionally, we confirmed the appropriate and timely administration of preoperative antibiotics, Ancef 2 g and Transexemic acid 1 g.? The availability of equipment was confirmed, and the patient's identity was verbalized as well.? An additional transexemic acid 1 g will be given on the floor as well. Following the surgical pause, an incision was made centering over the patella continuing proximally and distally as necessary to allow access to the knee joint. Dissection continued through skin and soft tissues using a scalpel. Hemostasis was obtained using electrocautery. The skin incision was followed by a median parapatellar arthrotomy. The leg was extended and the patella was able to be displaced laterally with difficulty. There was a loose body superior to the patella which was removed initially upon entry into the knee joint. There is a large osteophyte superiorly on the patella which was nearly as large as the patella itself. This was attached to the patella superiorly. This also was removed prior to beginning the surgical procedure.? Appropriate arrays and markers were placed in appropriate position for use of the Marty.? Preoperative planning had been accomplished and was discussed in detail with the [facility] event representative.? Intraoperative mapping of the femur and tibia was accomplished after the arrays were placed.? Internal markers were also placed.? Once we had accomplished the Marty mapping, we began the appropriate resections for placement of the prosthesis.? The plan was for a cruciate retaining right total knee arthroplasty. Once appropriate mapping had been accomplished retraction was established using manual retraction by surgical technicians and also the Marty leg positioner and retractors.? The knee was evaluated.? There was significant osteoarthritic change with significant osteophyte formation a significant varus deformity as well as a flexion contracture of 18 degrees.? Appropriate bone resection was accomplished using the Marty.? The femur was sized to a size 4.? Following femoral cuts, attention was directed to the tibia.? Osteophytes were removed prior to this portion of the procedure.? We had performed a medial release at the beginning of the procedure to allow for placement of the array and to allow for better planning with flexion and extension adjustments per Marty programming.? Proximal tibia was evaluated, and it was felt that appropriate size for the tibia was a size 4.? Tray was noted to fit nicely with good coverage.? Rim fit was accomplished with the size 4. A trial reduction was accomplished after osteophytes have been removed as well as the medial and lateral menisci.? We had removed the anterior cruciate ligament at the beginning of the case and preserved the posterior cruciate ligament.? Trial reduction was accomplished with a size 4 femoral cruciate retaining component and a size 4 CS tibial bearing insert which was initially a size 9 mm in thickness.? Sequential trials were accomplished with the final trial being a size 13 mm implant. Final insert was a 14 mm implant.? Alignment was felt to be appropriate as well.? Trial components were removed after the femur had been drilled.? Prior to removal of the tibial tray which had been pinned in position with appropriate rotation as determined by the Marty plan, we broached the tibia.? Subsequently, the 4 drill holes were made for the prosthetic component.? All trial components were removed, and the wound was irrigated.? Plans were made for insertion of the prosthetic components.? Prior to this, the patella was manually prepared.? After resection of the articular surface with the jogging system, it was measured and measured a 32 mm patella.? We resected approximately 11 mm of patella.? Patellar height was restored with the patellar component. Once again, the wound was irrigated.? The Tritanium tibia was impacted into position.? The beaded femur was then impacted into position in a cementless fashion. The CS tibial insert was placed prior to placement of the femoral component. The patella was pressed into position with a patellar clamp.? Exparel was injected about the components deep and superficially.? The knee was then copiously irrigated with betadine and saline and suctioned dry. Attention was then directed to closure. Closure was accomplished with 0 Vicryl in the fascial tissues.? This was followed by Surgiflo and vancomycin powder.? Following this, a 2-0 Monocryl was used in the subcutaneous tissues, and the skin was closed with skin macarena.? Care was taken to assure an excellent subcutaneous as well as skin closure.? A sterile dressing was then placed consisting of Dermabond Prineo, OpSite, sterile soft roll including over the foot, and an Man wrap. The patient was returned the Recovery Room in a satisfactory condition. X-rays were obtained and reviewed there.? The patient will be discharged to the floor for postoperative rehabilitation and pain management. Related Problem List Diagnoses (1) Primary osteoarthritis of right knee: (2) Flexion deformity, right knee: (3) Varus deformity, not elsewhere classified, right knee: (4) Loose body in knee, right knee:
--- NOTE | 2022-12-23 11:21 | XR_ITS ---
WS: [id number] Exam: XR knee LT 1-2V [id number] Date/Time of Exam: 12/23/2022 11:21 AM Reason For Exam: post knee replacement Comparison 10/22/2022. A total knee prosthesis is in place in excellent position. Postoperative changes in the adjacent soft tissues. Anterior surgical skin clips noted. XR/XR knee LT 1-2V [id number] IMPRESSION: 1. Total knee replacement in satisfactory position.
[2022-12-23] MEDS: chlorhexidine gluconate 0.12% UDC 15 mL 30 ML MUCOUS MEM ×3 (13:17→20:40)
[2022-12-23] MEDS: sodium chloride 0.9% 1,000 ML 100 ML IV ×2 (13:18→23:19)
--- NOTE | 2022-12-23 13:55 | ANE.PACU2 ---
Inpatient post-anesthesia follow up: Airway intact: Yes Vital signs: Temperature 97.4 F Pulse Rate 72 Respiratory Rate 14 Blood Pressure 164/73 Pulse Oximetry 97 Oxygen Delivery Me thod Room Air Oxygen Flow Rate Fraction of Inspir ed Oxygen Hydration adequate: Yes Nausea and vomiting: Yes Pain level: 1 Mental status: Baseline
[2022-12-23] MEDS: carbidopa-levodopa 25-100mg Tablet 1 EACH PO ×2 (16:09→20:39)
[2022-12-23] MEDS: sennosides-docusate Tablet 2 TAB PO (18:00)
[2022-12-23] MEDS: calcium carbonate 500 mg Chew Tablet 1000 MG PO (18:00)
[2022-12-23] MEDS: iron polysaccharide complex 150 mg Capsule PO (18:00)
[2022-12-23] MEDS: CELEcoxib 200 mg Capsule PO (18:02)
[2022-12-23] MEDS: carvedilol 25 mg Tablet PO (18:02)
[2022-12-23] MEDS: lisinopril 10 mg Tablet PO (18:02)
[2022-12-23] MEDS: oxyCODONE 5 mg IR Tab/Cap PO (18:02)
[2022-12-23] MEDS: mupirocin oint 22 gm 1 APPLIC NASAL (18:03)
[2022-12-23] MEDS: nitrofurantoin SR (BID) 100 mg Capsule PO (20:39)
[2022-12-24 00:39] VITALS: BP 102/56; PULSE 94; RESP 16; TEMP 37.1; O2SAT 96
[2022-12-24 04:43] LABS: Basophils % 0.1 %; Hematocrit 28.1 % (37.0-47.0); Lymphocytes # 1.5 10^3/uL (0.8-4.8); Lymphocytes % 15.9 %; Mean Platelet Volume 11.5 fL (7.4-10.4); Monocytes # 1.4 10^3/uL (0.2-0.9); Monocytes % 15.6 %; Neutrophils # 6.18 10^3/uL (1.8-7.7); Nucleated Red Blood Cells % 0 %; Platelet Count 134 10^3/cmm (130-400); Red Blood Count 2.81 10^6/uL (4.1-5.3); Red Cell Distribution Width 13.6 % (12.1-15.1); White Blood Count 9.1 10^3/uL (4.0-10.0)
[2022-12-24 05:00] VITALS: BP 124/50; PULSE 81; RESP 19; TEMP 37.1; O2SAT 98
[2022-12-24 05:01] LABS: Blood Urea Nitrogen 20 mg/dL (8-23); Calcium 8.2 mg/dL (8.5-10.5); Carbon Dioxide 23 mmol/L (22-29); Chloride 111 mmol/L (98-107); Glucose 113 mg/dL (65-115); Osmolality Calculated 297 mOsm/kg (285-295); Sodium 142 mmol/L (136-145)
[2022-12-24 05:49] VITALS: RESP 18
[2022-12-24] MEDS: CELEcoxib 200 mg Capsule PO (05:49)
[2022-12-24] MEDS: oxyCODONE 5 mg IR Tab/Cap PO (05:49)
[2022-12-24] MEDS: acetaminophen 1,000 MG/100 ML PIGGYBACK 400 MG IV (05:50)
[2022-12-24] MEDS: ceFAZolin 2,000 MG in sodium chloride 0.9% (plus) 50 ML 100 MG IV (06:47)
[2022-12-24 07:43] VITALS: PULSE 81; RESP 16; O2SAT 97
--- NOTE | 2022-12-24 08:37 | PC.PHAR ---
pt states she takes care of her own medications-pt gets her arbvdpuyf-tnkaswed-yewmkssajx and enalapril from [facility]-pt states she finished her macrobid 100mg bid on 12/20/22 rx was filled 12/16/22 5d/s
[2022-12-24] MEDS: chlorhexidine gluconate 0.12% UDC 15 mL 30 ML MUCOUS MEM (08:48)
[2022-12-24] MEDS: sennosides-docusate Tablet 2 TAB PO (08:49)
[2022-12-24] MEDS: cholecalciferol (vitamin D3) 1,000 unit Tablet 1000 UNIT PO (08:51)
[2022-12-24] MEDS: aspirin 325 mg EC Tablet PO (08:51)
[2022-12-24] MEDS: multivitamin therapeutic Tablet 1 TAB PO (08:52)
[2022-12-24] MEDS: iron polysaccharide complex 150 mg Capsule PO (08:52)
[2022-12-24] MEDS: nitrofurantoin SR (BID) 100 mg Capsule PO (08:52)
[2022-12-24] MEDS: carvedilol 25 mg Tablet PO (08:53)
[2022-12-24] MEDS: lisinopril 10 mg Tablet PO (08:54)
[2022-12-24] MEDS: calcium carbonate 500 mg Chew Tablet 1000 MG PO (08:55)
[2022-12-24] MEDS: carbidopa-levodopa 25-100mg Tablet 1 EACH PO ×2 (08:55→13:09)
[2022-12-24] MEDS: mupirocin oint 22 gm 1 APPLIC NASAL (08:56)
[2022-12-24] MEDS: sodium chloride 0.9% 1,000 ML 100 ML IV (11:47)
[2022-12-24 12:00] VITALS: BP 121/62; PULSE 74; RESP 17; TEMP 36.4; O2SAT 95
[2022-12-24] MEDS: acetaminophen 500 mg Tablet 1000 MG PO (13:09)
--- NOTE | 2022-12-24 13:46 | PM.DCS ---
Discharge Providers Date of Admission: 12/23/22 11:40 Date of Discharge: December 24, 2022 Attending Provider at Admission: Kaycee Stout MD Attending Provider at Discharge: Kaycee Stout MD Primary Care Provider: BRETT Perry Diagnoses at Discharge Discharge Diagnosis (1) Primary osteoarthritis of right knee: Status: Acute (2) Flexion deformity, right knee: Status: Acute (3) Varus deformity, not elsewhere classified, right knee: Status: Acute (4) Loose body in knee, right knee: Status: Acute (5) 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 Patellar deformity with osteophytes superiorly nearly as large as the patella. Large loose body which was removed as well Procedure done: Right total knee arthroplasty with Marty guidance Implants: The [employer] total knee system with a size 4 triathlon beaded cruciate retaining femur right, a triathlon titanium tibial component size 4 beaded, a triathlon X3 tibial bearing CS insert size 4 X 14 mm and a beaded triathlon titanium asymmetric patella size 35 x 10 mm Reason for Visit Reason for Visit: M17.10 Brief History: This is a 77 year old female patient presenting for right total knee arthroplasty with Marty assistance. Patient presents stating she utilizes a walker at all times. She reports right knee pain that has been on going for several years with no known injury. She reports right knee pain, stiffness and swelling. She reports a popping and grinding sensation. She reports a sensation of instability. She explains she has difficulty picking up her right lower extremity due to weakness. She states she has difficulty standing and walking for long periods at a time. She reports difficulty going up and down steps. She reports a [place] [facility] She denies any prior treatment for her right knee.? As noted, the patient has significant limitations in activities of daily living as well as significant pain.? She wishes to proceed with total knee arthroplasty.? Risks and complications are discussed with her.? Consents are signed preoperatively in the office.? Questions were answered. Hospital Course Hospital Course The patient underwent a very difficult Marty guided right total knee arthroplasty. The difficulty was secondary to her preoperative deformity which was significant varus and approximately an 18 degree flexion contracture. The patient tolerated the procedure well. She was admitted to the hospital postoperatively under observation status. She participated aggressively in physical therapy. On the first postoperative day, her dressing was changed. She had some ecchymosis, but her wound was benign and there was no evidence of DVT. When she was seen on the first postoperative day, she had participated well with physical therapy. She was felt safe to be discharged home. There were no complications and she was discharged to home with home health. Physical Exam Const: COMMON NORMALS: no acute distress, average body habitus, patient oriented x3 and alert GENERAL APPEARANCE: cooperative and comfortable ORIENTATION/CONSCIOUSNESS: Yes awake HENMT: COMMON NORMALS: normocephalic and atraumatic HEAD & SCALP: normocephalic and atraumatic Eye: GENERAL EYE: appearance normal, both eyes and all related structures Chest: COMMONS NORMALS: normal inspection of the chest Resp: COMMON NORMALS: normal respiratory effort EFFORT & INSPECTION: Yes able to speak in complete sentences and Yes symmetric chest movement Extremity: RIGHT LOWER EXTREMITY: Yes knee joint (No evidence of DVT.) Right knee: Yes palpation (Minimal to no tenderness.), Yes ROM (Able to straight leg raise.) and Yes neurovascular exam (Intact distally.) Neuro: COMMON NORMALS: patient oriented x3 SENSORIUM/ORIENTATION: Yes alert Psych: COMMON NORMALS: mental status grossly normal APPEARANCE: Yes grossly normal ATTITUDE: Yes calm and Yes engaged ATTENTION/CONCENTRATION: Yes attention grossly intact Skin: COMMON NORMALS: no rashes or lesions noted GENERAL SKIN EXAM: no rashes or lesions noted Urinary Catheter Management: Olzano: Cath Placed During This Visit: yes, but has since been removed by the nurse Reason for Continuing Indwelling Catheter: Acute Urinary Retention or Obstruction Urinary Catheter Date of Insertion: 12/23/22 Urinary Catheter Time of Insertion: 07:20 Date Urinary Catheter Removed: 12/24/22 Time Urinary Catheter Discontinued: 06:00 Discharge Data Studies Completed and Pending Completed Studies During Hospitalization Category Date Time Status XR knee LT 1-2V 25810 Routine Exams 12/23/22 11:21 Completed Radiology Impressions Knee X-Ray 12/23/22 11:21 IMPRESSION: 1. Total knee replacement in satisfactory position. Laboratory Results WBC 9.1 10^3/uL (4.0-10.0) 12/24/22 04:22 RBC 2.81 10^6/uL (4.1-5.3) L 12/24/22 04:22 Hgb 9.0 g/dL (11.5-15.3) L 12/24/22 04:22 Hct 28.1 % (37.0-47.0) L 12/24/22 04:22 MCV 100.0 fl (81-99) H 12/24/22 04:22 MCH 32.0 pg (28.0-34.0) 12/24/22 04:22 MCHC 32.0 g/dL (30.0-36.0) 12/24/22 04:22 RDW 13.6 % (12.1-15.1) 12/24/22 04:22 Plt Count 134 10^3/cmm (130-400) 12/24/22 04:22 MPV 11.5 fL (7.4-10.4) H 12/24/22 04:22 Neut % (Auto) 68.0 % 12/24/22 04:22 Lymph % (Auto) 15.9 % 12/24/22 04:22 Iroquois % (Auto) 15.6 % 12/24/22 04:22 Eos % (Auto) 0.0 % 12/24/22 04:22 Baso % (Auto) 0.1 % 12/24/22 04:22 Neut # (Auto) 6.18 10^3/uL (1.8-7.7) 12/24/22 04:22 Lymph # (Auto) 1.5 10^3/uL (0.8-4.8) 12/24/22 04:22 Iroquois # (Auto) 1.4 10^3/uL (0.2-0.9) H 12/24/22 04:22 Eos # (Auto) 0.0 10^3/uL (0.0-0.8) 12/24/22 04:22 Baso # (Auto) 0.0 10^3/uL (0.0-0.1) 12/24/22 04:22 Nucleated RBC % (auto) 0 % 12/24/22 04:22 Nucleated RBCs # 0.0 /100WBC 12/24/22 04:22 Sodium 142 mmol/L (136-145) 12/24/22 04:22 Potassium 4.0 mmol/L (3.5-5.1) 12/24/22 04:22 Chloride 111 mmol/L (98-107) H 12/24/22 04:22 Carbon Dioxide 23 mmol/L (22-29) 12/24/22 04:22 Anion Gap 12.0 (5-19) 12/24/22 04:22 BUN 20 mg/dL (8-23) 12/24/22 04:22 Creatinine 0.7 mg/dL (0.5-0.9) 12/24/22 04:22 GFR Calculation Not Reportable 12/24/22 04:22 Glucose 113 mg/dL (65-115) 12/24/22 04:22 Calculated Osmolality 297 mOsm/kg (285-295) H 12/24/22 04:22 Calcium 8.2 mg/dL (8.5-10.5) L 12/24/22 04:22 Vitals Last Vital Signs Temp 97.6 F 12/24/22 12:00 Pulse 74 12/24/22 12:00 Resp 17 12/24/22 12:00 BP 121/62 12/24/22 12:00 Pulse Ox 95 12/24/22 12:00 O2 Del Method Room Air 12/24/22 07:43 Discharge Plan Discharge Patient Disposition: Home Health Service Condition: Stable Prescriptions: New celecoxib 200 mg Capsule 200 mg PO 1XD 30 Days Qty: 30 0RF acetaminophen 500 mg Tablet 1,000 mg PO Q8H 15 Days Qty: 0 0RF aspirin 325 mg Tablet,Delayed Release (Dr/Ec) 325 mg PO DAILY 30 Days Qty: 0 0RF oxycodone 5 mg Tablet 5 mg PO Q4H PRN (Reason: Moderate Pain) 7 Days Qty: 30 0RF Continued calcium carbonate-vitamin D3 [Calcium 600 with Vitamin D3] 600 mg(1,500mg) -500 unit capsule 1 cap PO DAILY multivitamin Tablet 1 tab PO DAILY (DME) trapeze bar See Rx Instructions .Route .MEDSUPPLY Qty: 1 0RF Rx Instructions: Utilize as Directed carvedilol 25 mg tablet 25 mg PO BID@ enalapril maleate 10 mg tablet 10 mg PO BID@ carbidopa-levodopa 25-100 mg tablet 1 tab PO TID@0815,1215,1615 Held acetaminophen [Tylenol Extra Strength] 500 mg tablet 500 mg PO BID@ Hold Instructions: Resume on 01/08/23. Discharge Orders: Discharge Order (Routine); Ordered 12/24/22 Ordered By: Kaycee Stout Referrals: [facility] ([facility]) [Outside] Kaycee Stout MD [Physician] - 01/02/23 8:15 am Discharge Diet: Advance as tolerated and Usual diet Discharge Activity: Increase activity as tolerated, Limit activity as instructed, Use walker/crutches as instructed and As per PT/OT instructions Patient Instructions: Aspirin (By mouth), Oxycodone, Rapid Release (By mouth), Celecoxib (By mouth), Knee Replacement (GEN), Joint Replacement Stoplight, Opioid Safety Activity Restrictions/Additional Instructions: Elevate right lower extremity. Ice to right knee. Ambulate weightbearing as tolerated. Maintain dressing until it comes off on its own. Discharge Attestations Time Spent in Discharge Care*: greater than 30 min Specific Discharge Activities: educating patient, documenting/other paperwork and evaluating patient/reviewing data Quality Metrics Clinical Quality Measures [ No reported AMI, CVA or VTE this stay] Coding Level of Care Code Acute Code for Chg Fwd Diagnoses Primary osteoarthritis of right knee M17.11 Flexion deformity, right knee M21.261 Varus deformity, not elsewhere classified, right knee M21.161 Loose body in knee, right knee M23.41 Status post total right knee replacement not using cement Z96.651
== END 2022-12-24 14:34 | disposition home health service (06) ==
LOC: MEDSURG 11:48
PROVIDERS: Admitting Provider Specialist; PCP Nurse Practitioner Family; Visit Provider Specialist
PROC: 8E0Y0CZ Robotic Assisted Procedure of Lower Extremity, Open Approach (ICD-10-PCS; CPT 27447; principal; 2022-12-23 07:00)
DX: M17.11 Unilateral primary osteoarthritis, right knee (principal); M24.561 Contracture, right knee; M21.161 Varus deformity, not elsewhere classified, right knee
CPT/HCPCS: 20985; 27331; 27447; 36415; 51702; 73560; 80048; 85025; 97110; 97116; 97161; 97166; 97530; 97535; C1776; C9290; G0378; J0131; J0360; J0690; J1100; J2370; J2405; J2704; J3010; J3370; J3490; J7030

== ENCOUNTER → 2023-01-02 08:12 | Outpatient (BNVA) | payer MEDICARE, OTHER, SELFPAY | PROVIDERS: PCP Nurse Practitioner Family; Visit Provider Nurse Practitioner Family | DX: Z96.651 Presence of right artificial knee joint (principal) | CPT/HCPCS: 73560; 99024 ==

== ENCOUNTER → 2023-01-19 13:16 | Outpatient (BNVA) | payer MEDICARE, OTHER, SELFPAY | PROVIDERS: PCP Nurse Practitioner Family; Visit Provider Specialist | DX: Z96.651 Presence of right artificial knee joint (principal); S72.431A Displaced fracture of medial condyle of right femur, initial encounter for closed fracture; X58.XXXA Exposure to other specified factors, initial encounter; T84.018A Broken internal joint prosthesis, other site, initial encounter; Y79.2 Prosthetic and other implants, materials and accessory orthopedic devices associated with adverse incidents; M23.41 Loose body in knee, right knee | CPT/HCPCS: 36415; 73560; 80053; 85025; 99214 ==

== ENCOUNTER 2023-01-23 12:30 | Inpatient (IN) | payer MEDICARE, OTHER, SELFPAY ==
[2023-01-22 15:08] VITALS: BMI 20.9
[2023-01-23] VITALS (14 sets, daily range): BP systolic 131–193; BP diastolic 54–92; PULSE 66–81; RESP 9–18; TEMP 36.3–37.1; O2SAT 94–99
[2023-01-23] MEDS: acetaminophen 1,000 MG/100 ML PIGGYBACK 400 MG IV ×3 (06:22→22:13)
--- NOTE | 2023-01-23 06:22 | ANES.PREANE2 ---
Pre-Anesthetic Assessment Height/Weight: Height 1.68 m Weight 58.967 kg Temp Pulse Resp BP Pulse Ox O2 Del Method 97.4 F L 74 18 193/92 99 Room Air 01/23/23 06:08 01/23/23 06:08 01/23/23 06:08 01/23/23 06:08 01/23/23 06:08 01/23/23 06:08 Preop Diagnosis: Closed fracture medial femoral condyle right knee Operation Date: 01/23/23 07:00 Proposed Procedures p Right TOTAL KNEE ARHTROPLASTY REVISION 57744,T84.018A(Right) - Kaycee Stout MD Familial anesthetic complications: none Was Beta Jordan taken within 24 hours: Yes Was Clonidine taken within 24 hours: N/A Last intake: Intake Last Liquid Date 01/22/23 Last Liquid Time 21:00 Last Solid Date 01/22/23 Last Solid Time 18:00 Social No alcohol and No tobacco Exam alert, oriented x 3, clear to auscultation bilaterally and regular rate & rhythm Airway Mallampati: Class II Dentition: false CV/HEM Hypertension Neuropsych parkinsons Anesthetic Plan ASA status: 3 Anesthesia: Regional (specify below) Risk of > 500 ml blood loss (7ml/kg in children): Yes, adequate IV access and fluids planned Medications/Allergies Home Medications Medication Instructions Recorded Confirmed Last Taken Type acetaminophen 500 mg tablet 500 mg PO BID 12/26/19 01/22/23 01/22/23 History (Tylenol Extra Strength) calcium carbonate 600 mg-vitamin 1 cap PO DAILY 12/26/19 01/22/23 01/22/23 History D3 12.5 mcg (500 unit) capsule (Calcium 600 with Vitamin D3) multivitamin 1 tab PO DAILY 12/26/19 01/22/23 01/22/23 History trapeze bar #1 ea 10/08/21 01/19/23 Unknown Rx carbidopa 25 mg-levodopa 100 mg 1 tab PO TID@0815,1215,1615 12/23/22 01/22/23 01/22/23 History tablet carvedilol 25 mg tablet 25 mg PO BID@07,12/23/22 01/22/23 01/23/23 04:30 History enalapril maleate 10 mg tablet 10 mg PO BID@,12/23/22 01/22/23 01/22/23 History Allergies Allergy/AdvReac Type Severity Reaction Status Date / Time No Known Allergies Allergy Verified 01/19/23 13:37 [facility] Anesthesia Medical History Hammertoes of both feet HTN (hypertension) Parkinson disease Surgical History H/O mastectomy H/O ovarian cystectomy H/O total knee replacement History of back surgery Family History Mother CAD (coronary artery disease) Diabetes Father CAD (coronary artery disease) Diabetes Social History Smoking and tobacco status: never smoked Female Reproductive History Spontaneous abortions: No Data Anesthesia Cardiac Studies: Echocardiogram 02/07/22 Cardiac Event Monitor 12/31/21
[2023-01-23] MEDS: sodium chloride 0.9% 1,000 ML 30 ML IV (06:23)
[2023-01-23] MEDS: CELEcoxib 200 mg Capsule 400 MG PO (06:30)
[2023-01-23] MEDS: gabapentin 300 mg Capsule PO (06:31)
--- NOTE | 2023-01-23 06:55 | ANES.PROC ---
Anesthesia Procedures Procedure/Date: 01/23/23 Nerve Block ^: Nerve Block 1: Main Anesthesia: general anesthesia Time Out Performed: Yes Consent: requested by attending/covering physician and from patient Nerve block location: adductor canal Anesthesia monitors applied: pulse oximetry, EKG, BP cuff and oxygen Nerve block position: supine Anesthetic Used: ropivicaine 0.5% (30 ml) and with decadron ( 4mg) Ultrasound used to: recognize landmarks and visualize and ID femerol nerve Nerve Stimulator Used?: No Interscalene/Femoral BLK: 4 stimuplex 21 g needle used for position and inplane approach, visualize local anesthetic spread and no vascular puncture identified Injection: neg aspiration of heme Patient Tolerated Procedure: well Complications: none
--- NOTE | 2023-01-23 06:57 | SUR.PREOP ---
UA not done on arrival to pre op. labwork ordered in clinic 01/19 cbc, cmp, ua. cbc and cmp done 01/19. patient and family states ua not collected that day due to patient unable to void in hat for lab. no ua ordered DOS.
--- NOTE | 2023-01-23 07:07 | P.HPUD_ITS ---
Surgery/Procedure H&P Update DATE OF PROCEDURE: January 23, 2023 DATE H&P PERFORMED: 01/19/23 H&P UPDATE INFORMATION: I have reviewed H&P completed within last 30 days, I have examined patient prior to procedure, No changes to prior documentation and H&P is in [facility] on date indicated PREOP DIAGNOSIS: Closed fracture medial femoral condyle right knee PLANNED PROCEDURE: Operation Date: 01/23/23 07:00 Proposed Procedures p Right TOTAL KNEE ARHTROPLASTY REVISION 25846,T84.018A(Right) - Kaycee Stout MD Related Problem List Diagnoses (1) Closed fracture of medial condyle of distal end of right femur: Qualifiers: Encounter type: initial encounter Fracture alignment: displaced Qualified Code(s): S72.431A - Displaced fracture of medial condyle of right femur, initial encounter for closed fracture (2) 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
[2023-01-23] MEDS: ceFAZolin 2,000 MG in sodium chloride 0.9% (plus) 50 ML 100 MG IV ×3 (07:26→22:38)
[2023-01-23] MEDS: ceFAZolin 1,000 mg SDV 4000 MG IRRIGATION (09:00)
[2023-01-23] MEDS: vancomycin 1,000 MG SDV 3000 MG IRRIGATION (09:02)
[2023-01-23 09:10] LABS: Add Urine Culture? No; Add Urine Microscopic? YES; Bacteria Urine TRACE /hpf; Bilirubin Urine Neg (Negative); Blood Urine Neg (Negative); Glucose Urine UA Norm (Normal); Ketones Urine Negative (Negative); Leukocyte Esterase Urine Negative (Negative); Mucus Urine TRACE /hpf; Nitrate Urine Negative (Negative); Protein Urine Trace (Negative); RBC Urine RARE /hpf (0-2); Urine Appearance SL Hazy (CLEAR); Urine Color Yellow (Yellow); Urobilinogen Urine 1 mg/dL (Negative); WBC Urine 0-4 /hpf (0-5); pH Urine 6 (5-7)
--- NOTE | 2023-01-23 12:13 | PC.NURSE ---
Pt arrived to PACU, resting comfortably, denies any pain or nausea at this time. Dressing to right knee C/D/I, right foot p/w/d, cap refill < 3 seconds, ice pack applied. Foot pump to left foot in place and running.
--- NOTE | 2023-01-23 12:19 | XR_ITS ---
WS: [id number] Exam: XR knee RT 1-2V [id number] Date/Time of Exam: 01/23/2023 12:38 PM Reason For Exam: Status post revision right total knee Comparison 01/19/2023. Revised the right total knee prosthesis in place in satisfactory position. Postoperative changes in t he adjacent soft tissues. Anterior surgical skin clips. XR/XR knee RT 1-2V 11621 IMPRESSION: 1. Revised right total knee prosthesis in satisfactory position.
--- NOTE | 2023-01-23 12:28 | PC.NURSE ---
XR obtained, Dr Argelia minor.
--- NOTE | 2023-01-23 12:38 | P.OP_ITS ---
Operative Report Date of procedure: January 23, 2023 Pre-op diagnosis: Closed right medial femoral condyle fracture with resulting failure of right total knee arthroplasty Post-op diagnosis: Closed right medial femoral condyle fracture with resulting failure of right total knee arthroplasty Post-op findings: Migration of the femoral component into the medial femoral condyle. Femoral c omponent was loose. Well fixed patellar component. Early fixation to the tibial component Procedure done: Single-stage revision right total knee arthroplasty Implants: The [place] total knee system: Size 4 triathlon total stabilizer femoral component, right, with a medial distal femoral augment size 4 x 15 mm, a central femoral cone augment size 3 and 4, and a stem, cemented, with a 25 mm stem flight engineer performance qualified and a 12 mm x 50 mm stem. Size 4 triathlon universal tibial baseplate with tibial augment size 4 x 5 mm medially and laterally, a cemented stem with a 25 mm stem flight engineer performance qualified and a 12 x 50 mm cemented stem, and a size C symmetric cone augment for the tibia. A triathlon total stabilizer tibial insert size 4 x 11 mm. Cement restrictor's were used proximally and distally. Cement utilized was antibiotic Simplex with full dose Tobra. Specimens removed/disposition: Prior arthroplasty components were removed. This included femur, tibial insert, and tibia Specimen included opening cultures of the synovial fluid Pathology: none sent Surgeon: Kaycee Stout Developmental Therapist: [employer] technicians Anesthesia: General (Intubated, ASA 3 with right adductor block) Estimated blood loss (mL): 75 Tourniquet time (min): 120 (At 250 mmHg) IV fluids (mL): 1,400 Urine output (mL): 350 Complications: None Findings: Loose femoral component with significant migration of approximately 14 mm into the medial femoral condyle. The condyle was not fractured off. Well fixed patellar component. Stable early fixation to tibial component. Condition: stable Disposition: PACU (Then to floor for postoperative rehabilitation and pain management) Brief History: Luly Castro is an established 77 year old female patient who is here today for 4 week post operative follow up to: Right total knee arthroplasty with Marty guidance. Implants: The [place] total knee system with a size 4 triathlon beaded cruciate retaining femur right, a triathlon titanium tibial component size 4 beaded, a triathlon X3 tibial bearing CS insert size 4 X 14 mm and a beaded triathlon titanium asymmetric patella size 35 x 10 mm. Patient denies pain in knee at rest, but states if she bends it too far back her pain level will spike to 5/10. She presents today for single-stage revision of her right total knee arthroplasty. Risks and complications were previously discussed with the patient. Consents were signed. Procedure: The patient was brought to the operating theater, and after undergoing general anesthesia, ASA 3, as well as an adductor canal block, the right lower extremity was prepped with Dura-Prep and draped in usual fashion following placement of a tourniquet high on the leg. The leg was then draped free.? Tourniquet was elevated to 250 mmHg for a total tourniquet time of 120 minutes. A surgical pause was performed, and at the time of the surgical pause, we confirmed the site and side of surgery. Additionally, we confirmed the appropriate and timely administration of preoperative antibiotics, Ancef 2 g and Transexemic acid 1 g.? The availability of equipment was confirmed, and the patient's identity was verbalized as well.? An additional transexemic acid 1 g will be given on the floor as well. The patient's previous incision was also marked with a marker prior to commencement of the surgical procedure. Following the surgical pause, the patient's previous incision was opened using a scalpel. Any suture was removed. Dissection continued through the skin and soft tissues using a scalpel, and hemostasis was obtained using electrocautery. A median parapatellar arthrotomy was then accomplished through the patient's previous surgical site. There was still some remnants of Vicryl which marked the incision of the patient's previous arthrotomy. Soft tissues were debrided with a combination of curette, rongeur's, and irrigation. Upon entry into the knee joint, cultures were obtained of the synovial fluid which was serosanguineous. The soft tissues did not of appear particularly inflamed or infected. The patient's previous total knee arthroplasty was noted. Soft tissues were addressed until we were able to flex the knee without issue at the tibial tubercle. Initially, attention was directed to the femur. The femoral component was evaluated. It had subsided in an angular fashion up into the medial femoral condyle. The component was loose and was able to be rem nick without difficulty. Measurement of the defect into the medial condyle was approximately 14 mm. Once the femoral component was removed, attention was directed to the tibia. This required flexible osteotomes to separate the component from the bone. Although it was not completely fixed secondary to this only being a month from the index procedure, there was good fixation, and there was no evidence of migration of the tibia. The patella was also evaluated, and consideration was given to removal of the patella, but it was felt that we would lose too much bone as this appeared to be very well fixed. Therefore the patella was maintained from the patient's previous surgical procedure. Once the tibia was removed, we began preparing for the revision knee arthroplasty. Initially attention was directed to the tibia. Hand reamers were placed into the tibia. Over this reamer, the guide was placed for proximal tibial resection. We resected very little tibia, approximately a millimeter or 2. This maintained the tibia at a size 4. As the patient previously had a size 14 insert, we elected to place a 5 mm augments medially and laterally on the tibia to maintain its alignment but restore the joint line during this revision process. Once the proximal tibia had been resected as noted above, attention was directed to preparation for the tibial symmetric cone augment. Following re amer size which gave secure fit distally, reaming was accomplished for the symmetric cone augment of the tibia. With this reamer, we were able to get to a size C. At that point, attention was directed to the femur. Similarly, reamers were placed in position within the femoral canal. The revision cutting block was placed over this reamer. Anshul wings were used anteriorly to determine appropri ate rotation and also alignment. Medially, the shell of bone along the most medial aspect of the femur was noted to not be fractured from the remainder of the femur. Medial collateral ligament was intact. As noted, the defect measured approximately 15 mm. A 15 mm distal medial augment was then chosen and this was placed on the back of the jig so that we could prepare the anterior, posterior, and chamfer cuts. Once this was in appropriate position, the jig system was again used to prepare the notch for the total stabilizer femoral component. The jig was then removed. Reaming was accomplished of the distal femur for placement of the central femoral cone augment which was a size 3 and 4 for the right femur. Once again, the central femoral cone augment trial was placed in position. Tr ial reduction was then accomplished with the femur with a medial augment distally as well as a 50 mm stem with a 25 mm extension. The proximal tibia was prepared utilizing the jig for the wings of the tibia. The trial reduction was then accomplished with the cone in place. With this, we also placed 5 mm augments medially and laterally on the proximal tibia. We were then able to perform a trial reduction. The trial reduction was accomplished with an 11 mm total stabilizer tibial insert. With this, we had full extension. We had excellent varus valgus stability. There is no significant lift off. Therefore, these were the chosen components. On the back table, we assembled the tibia with the augment medially and laterally at 5 mm each. The stem was placed with a 25 mm flight engineer performance qualified and the 50 mm cemented stem. The cone was on the field as well. Following this we assembled the femur which also had a 25 mm extension and a 50 mm stem. There was an augment distally on the medial femoral condyle of 15 mm and this was placed in appropriate position as well. Preparation was then made for cementing. Prior to placement of the cement, the components were impacted into appropriate posit ion in both the tibia and femur. Cement restrictors were placed proximally in the femur and distally in the tibia. The cement gun was used. Each component was cemented into position separately. The tibial tray was also placed during the cementing process. Care was taken to remove all excess cement from both components. Components were noted to seat nicely. Varus valgus alignment was restored. Patella was noted to track nicely. At that point, preparation was made for closure. The knee was then copiously irrigated with betadine and saline and suctioned dry. Attention was then directed to closure. Closure was accomplished with #1 PDS in the fascial tissues.? This was followed by Surgiflo and vancomycin powder.? Following this, a 2-0 Monocryl was used in the subcutaneous tissues, and the skin was closed with skin macarena.? Care was taken to assure an excellent subcutaneous as well as skin closure.? A sterile dressing was then placed consisting of Dermabond Prineo, OpSite, sterile soft roll including over the foot, and an Man wrap. The patient was returned the Recovery Room in a satisfactory condition. X-rays were obtained and reviewed there.? The patient will be discharged to the floor for postoperative rehabilitation and pain management. 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
--- NOTE | 2023-01-23 14:21 | ANE.PACU2 ---
Inpatient post-anesthesia follow up: Airway intact: Yes Vital signs: Temperature 97.8 F Pulse Rate 69 Respiratory Rate 16 Blood Pressure 158/63 Pulse Oximetry 95 Oxygen Delivery Me thod Room Air Oxygen Flow Rate Fraction of Inspir ed Oxygen Hydration adequate: Yes Nausea and vomiting: No Pain level: 1 Mental status: Baseline
[2023-01-23] MEDS: carbidopa-levodopa 25-100mg Tablet 1 EACH PO (16:39)
--- NOTE | 2023-01-23 17:51 | PM.HP ---
Providers/Chief Complaint Admitting Physician: Kaycee Stout MD Primary Care Provider: BRETT Perry Chief Complaint: T84.018A History of Present Illness Luly Castro is a 77 year old female with PMH Parkinson's , HTN, peripheral neuropathy who underwent right knee total arthroplasty for severe osteoarthritis of the right knee on December 24, 2022. She continued to have pain with movement at the knee and was found to have femoral hardware that has moved proximally. She was admitted today for total right knee revision and is now status post the procedure. No immediate perioperative complications. Tolerated the procedure well. Pain is currently controlled. Review of Systems General: Reports: 10 or more systems reviewed and unremarkable except in HPI and below Const: Denies: fever(s), chills or body aches Eyes: Denies: change in vision, blurry vision or photophobia ENMT: Reports: hoarseness; Denies: throat pain, enlarged tonsils, odynophagia or nasal congestion Card: Denies: chest pain, palpitations, irregular heart rhythm, edema, swelling of feet/ankles, lightheadedness, pre-syncope, dyspnea on exertion or orthopnea Resp: Denies: dyspnea, productive cough, non-productive cough, wheezing, stridor, pain on inspiration, change in phlegm color, hemoptysis or chest congestion GI: Denies: abdominal pain, nausea, vomiting, hematemesis, coffee ground emesis, dysphagia, heartburn, diarrhea, constipation, GI cramping, change in stool character, hematochezia or melena : Denies: flank pain, difficulty voiding, dysuria, urinary frequency, urinary urgency, urinary hesitancy or hematuria Musc: Denies: neck pain, back pain, extremity pain, joint swelling, joint warmth or deformity Neuro: Denies: headache(s), numbness in extremities, weakness in extremities, sensory changes, difficulty walking, frequent falls, dizziness, vertigo, behavioral changes, Slurred speech present or seizure-like activity Psych: Denies: anxiety, depression, suicidal ideation or homicidal ideation Endo: Denies: polyuria, polydipsia, tired all the time, cold intolerance or hot flashes Tio/Lymph: Denies: easy bruising or easy bleeding Medications/Allergies Home Medications Medication Instructions Recorded Confirmed Last Taken Type acetaminophen 500 mg tablet 500 mg PO BID 12/26/19 01/22/23 01/22/23 History (Tylenol Extra Strength) calcium carbonate 600 mg-vitamin 1 cap PO DAILY 12/26/19 01/22/23 01/22/23 History D3 12.5 mcg (500 unit) capsule (Calcium 600 with Vitamin D3) multivitamin 1 tab PO DAILY 12/26/19 01/22/23 01/22/23 History trapeze bar #1 ea 10/08/21 01/19/23 Unknown Rx carbidopa 25 mg-levodopa 100 mg 1 tab PO TID@0815,1215,1615 12/23/22 01/22/23 01/22/23 History tablet carvedilol 25 mg tablet 25 mg PO BID@07,19 12/23/22 01/22/23 01/23/23 04:30 History enalapril maleate 10 mg tablet 10 mg PO BID@07,19 12/23/22 01/22/23 01/22/23 History oxycodone 5 mg tablet 5 mg PO Q4H PRN pain 7 days #30 01/23/23 Unknown Rx tabs Allergies Allergy/AdvReac Type Severity Reaction Status Date / Time No Known Allergies Allergy Verified 01/19/23 13:37 PFSH Acute PFSH: Medical History Hammertoes of both feet HTN (hypertension) Parkinson disease Surgical History H/O mastectomy H/O ovarian cystectomy H/O total knee replacement History of back surgery Family History Mother CAD (coronary artery disease) Diabetes Father CAD (coronary artery disease) Diabetes Social History Smoking and tobacco status: never smoked Female Reproductive History: Spontaneous abortions: No Vitals/I&O/Wt Last Vital Signs Temp 97.8 F 01/23/23 13:04 Pulse 68 01/23/23 16:00 Resp 16 01/23/23 16:00 BP 145/66 01/23/23 16:00 Pulse Ox 97 01/23/23 16:00 O2 Del Method Room Air 01/23/23 16:00 01/23/23 01/23/23 01/23/23 06:59 14:59 22:59 Intake Total 100 / 100 2685 / 2685 50 / 2735 Output Total 775 / 775 Balance 100 / 100 0 / 1910 50 / 1960 Weight last 48 hrs Weight 58.967 kg Physical Exam Narrative: General: No acute distress, AO x3 HEENT: PERRLA, pupils bilaterally equal and reactive, pallors not present Chest: Normal vesicular breath sounds, no added sounds, equal good air entry bilaterally CVS: S1-S2 regular, no murmurs, no tachycardia, no gallops, no rubs Abdomen: Soft, nontender, no organomegaly, bowel sounds present Neuro: No focal deficits, no facial deformity, AO x3, power 5/5 in all limbs Urinary Catheter Management: Lozano: Cath Placed During This Visit: yes Urinary Catheter Date of Insertion: 01/23/23 Urinary Catheter Time of Insertion: 07:35 Data Micro: Microbiology 01/23/23 08:25 Gram Stain - Final Synovial Fluid A&P Assessment and plan (1) Failure of total knee arthroplasty: Patient with recent right knee arthroplasty on December 24, 2022 found to have migrated hardware. Status post revision surgery today which she tolerated well. Pain currently controlled. Qualifiers: Encounter type: initial encounter Qualified Code(s): T84.018A - Broken internal joint prosthesis, other site, initial encounter; Z96.659 - Presence of unspecified artificial knee joint (2) Parkinson disease: Continue home dose of carbidopa levodopa. (3) HTN (hypertension): Blood pressure is currently well controlled. Continue carvedilol Qualifiers: Hypertension type: essential hypertension Qualified Code(s): I10 - Essential (primary) hypertension (4) Peripheral neuropathy: Plan Dispo: Patient was in skilled nursing after her last surgery.. Lives alone. Therapy assessments. Appropriate disposition planning Attestations Medical Necessity Statement*: > 2 midnighta dmission anticipated for post procedure care and monitoring, therapy assessments, disposition planning Coding Level of Care Code Acute Code for Chg Fwd Diagnoses Failure of total knee arthroplasty T84.018A; Z96.659 Encounter type: initial encounter Parkinson disease G20 HTN (hypertension) I10 Hypertension type: essential hypertension Peripheral neuropathy G62.9
[2023-01-23] MEDS: sennosides-docusate Tablet 2 TAB PO (18:21)
[2023-01-23] MEDS: iron polysaccharide complex 150 mg Capsule PO (18:21)
[2023-01-23] MEDS: carvedilol 25 mg Tablet PO (18:21)
[2023-01-23] MEDS: lisinopril 20 mg Tablet PO (18:22)
[2023-01-23] MEDS: mupirocin oint 22 gm 1 APPLIC NASAL (18:23)
[2023-01-23] MEDS: chlorhexidine gluconate 0.12% Btl 473 mL 30 ML MUCOUS MEM (20:52)
[2023-01-24] VITALS (10 sets, daily range): BP systolic 102–174; BP diastolic 63–77; PULSE 75–95; RESP 18; TEMP 36.4–37; O2SAT 95–99
[2023-01-24] MEDS: carvedilol 25 mg Tablet PO ×2 (06:03→18:14)
[2023-01-24] MEDS: acetaminophen 1,000 MG/100 ML PIGGYBACK 400 MG IV (06:03)
[2023-01-24] MEDS: lisinopril 20 mg Tablet PO ×2 (06:03→18:14)
[2023-01-24] MEDS: oxyCODONE 5 mg IR Tab/Cap PO (06:04)
[2023-01-24 06:29] LABS: Basophils % 0.1 %; Hematocrit 30.2 % (37.0-47.0); Lymphocytes # 1.1 10^3/uL (0.8-4.8); Lymphocytes % 9.8 %; Mean Corpuscular HGB Conc 29.8 g/dL (30.0-36.0); Mean Corpuscular Hemoglobin 30.9 pg (28.0-34.0); Mean Corpuscular Volume 103.8 fl (81-99); Mean Platelet Volume 11.8 fL (7.4-10.4); Monocytes # 1.1 10^3/uL (0.2-0.9); Monocytes % 9.7 %; Neutrophils # 9.17 10^3/uL (1.8-7.7); Neutrophils % 79.5 %; Nucleated Red Blood Cells % 0 %; Platelet Count 163 10^3/cmm (130-400); Red Blood Count 2.91 10^6/uL (4.1-5.3); White Blood Count 11.5 10^3/uL (4.0-10.0)
[2023-01-24 06:53] LABS: Anion Gap 15.6 (5-19); Blood Urea Nitrogen 22 mg/dL (8-23); Calcium 8.5 mg/dL (8.5-10.5); Carbon Dioxide 22 mmol/L (22-29); Chloride 105 mmol/L (98-107); Glucose 111 mg/dL (65-115); Osmolality Calculated 290 mOsm/kg (285-295); Potassium 4.6 mmol/L (3.5-5.1); Sodium 138 mmol/L (136-145)
--- NOTE | 2023-01-24 07:34 | PC.PHAR ---
unable to complete med rec- has already put in discharge medication-ext shows celecoxib 200mg daily filled 12/24/22 30d/s-
--- NOTE | 2023-01-24 08:30 | P.PN_ITS ---
Subjective Subjective: Patient seen and examined this morning. Patient overall no issues overnight. Pain controlled with medications. Denies any fevers chills chest pain or shortness of breath. We will work with therapy today. She is complaining of left shoulder pain which she states has been going on since her initial surgery. We will get an x-ray of that today and follow-up tomorrow. Vitals/I&O/Wt Last Vital Signs Temp 97.9 F 01/24/23 07:47 Pulse 83 01/24/23 07:47 Resp 18 01/24/23 07:47 BP 174/77 01/24/23 07:47 Pulse Ox 96 01/24/23 07:47 O2 Del Method Room Air 01/24/23 07:47 01/23/23 01/24/23 01/24/23 22:59 06:59 14:59 Intake Total 510 / 3195 270 / 3465 Output Total 700 / 1475 Balance 510 / 2420 -430 / 1990 Weight last 48 hrs Weight 130 lb Physical Exam Narrative: Examination of the right lower extremity right lower extremity has a bandage in ice on in place to the right knee bandages left on in place. Distal pulses are palpable to the right lower extremity toes warm well-perfused. Compartments are soft and compressible. She is able to wiggle her toes as well as plantarflex and dorsiflex ankle. Sensations intact light touch distally. Examination of the left shoulder she has minimal active range of motion has tenderness to palpation over the bicipital groove anteriorly. Urinary Catheter Management: Lozano: Cath Placed During This Visit: yes, but has since been removed by the nurse Reason for Continuing Indwelling Catheter: Decision to DC Catheter Urinary Catheter Date of Insertion: 01/23/23 Urinary Catheter Time of Insertion: 07:35 Date Urinary Catheter Removed: 01/24/23 Time Urinary Catheter Discontinued: 06:30 Data 01/24/23 05:39 01/24/23 05:39 Micro: Microbiology 01/23/23 08:25 Gram Stain - Final Synovial Fluid A&P Assessment and plan (1) Failure of total knee arthroplasty: Qualifiers: Encounter type: initial encounter Qualified Code(s): T84.018A - Broken internal joint prosthesis, other site, initial encounter; Z96.659 - Presence of unspecified artificial knee joint (2) Closed fracture of medial condyle of distal end of right femur: Qualifiers: Encounter type: initial encounter Fracture alignment: displaced Qualified Code(s): S72.431A - Displaced fracture of medial condyle of right femur, initial encounter for closed fracture (3) 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 Plan Patient postoperative day 1 from a revision right total knee arthroplasty. With my partner Dr. Stout. Pain controlled with medications. At this point time postoperative pain control, DVT prophylaxis. Hospitalist on board as primary an d appreciate their medical management. Patient will work with PT/OT. Weight- bear as tolerated to the right lower extremity as well as encourage knee range of motion as tolerated. A.m. labs are reviewed. We will order a left shoulder x-ray as she was complaining of pain. Orthopedics will continue to follow along and monitor patient. All questions answered. Attestations Medical Necessity Statement*: Ongoing postoperative care right total knee arthroplasty revision Coding Level of Care Code Acute Code for Chg Fwd Diagnoses Failure of total knee arthroplasty T84.018A; Z96.659 Encounter type: initial encounter Closed fracture of medial condyle of distal end of right femur S72.431A Encounter type: initial encounter Fracture alignment: displaced Status post total right knee replacement not using cement Z96.651 Time Spent (min) 20
--- NOTE | 2023-01-24 08:35 | XRR_ITS ---
PROCEDURE INFORMATION: Exam: XR Left Shoulder Exam date and time: 01/24/2023 7:40 AM Age: 77 years old Clinical indication: Pain; Upper arm; Left; Additional info: Left shoulder pain TECHNIQUE: Imaging protocol: Radiologic exam of the left shoulder. Views: 2 or more views. COMPARISON: CR XR chest 1V portable [id number] 11/17/2021 4:34 PM FINDINGS: Bones/joints: There is marked up lifting of the humeral head resulting in marked narrowing of the supraspinatus outlet likely secondary to chronic rotator cuff tear. There are mild-moderate degenerative changes at the shoulder joint and AC joint. No fracture, dislocation or underlying bone lesion detected. Soft tissues: Normal. XR/XR shoulder LT min 2V* [id number] IMPRESSION: No acute bony abnormalities.
[2023-01-24] MEDS: carbidopa-levodopa 25-100mg Tablet 1 EACH PO ×3 (09:12→16:03)
[2023-01-24] MEDS: sennosides-docusate Tablet 2 TAB PO ×2 (09:12→18:14)
[2023-01-24] MEDS: iron polysaccharide complex 150 mg Capsule PO ×2 (09:12→18:14)
[2023-01-24] MEDS: cholecalciferol (vitamin D3) 1,000 unit Tablet 1000 UNIT PO (09:12)
[2023-01-24] MEDS: aspirin 325 mg EC Tablet PO (09:13)
[2023-01-24] MEDS: multivitamin therapeutic Tablet 1 TAB PO (09:13)
[2023-01-24] MEDS: mupirocin oint 22 gm 1 APPLIC NASAL ×2 (10:27→18:15)
[2023-01-24] MEDS: ceFAZolin 2,000 MG in sodium chloride 0.9% (plus) 50 ML 100 MG IV (10:28)
--- NOTE | 2023-01-24 11:01 | PC.NURSE ---
When doing bedside report with shift production supervisor nurse, patient stated she needed to use the bedside commode. Patient required a 2 person assist with moderate support. Patient seemed very anxious when preparing to transfer. This nurse and shift production supervisor nurse verbally deescalated the situation and successfully transferred the patient to the bedside commode. Patient was still nervous she would not be able to complete the transfer successfully and was comforted by this nurse and the shift production supervisor nurse by reinforcing call light use and to not get up without assistance.
[2023-01-24] MEDS: TRAMadol 50 mg Tablet PO (13:23)
--- NOTE | 2023-01-24 15:24 | PM.PN ---
Subjective Subjective: Patient worked with PT today. Pain is controlled, she is requesting not to get any opiates as they make her hallucinate. Hemoglobin currently at 9 from 11.6. We will closely monitor. Medications: Reviewed: Yes Vitals/I&O/Wt Last Vital Signs Temp 98.1 F 01/24/23 15:17 Pulse 89 01/24/23 15:17 Resp 18 01/24/23 15:17 BP 156/77 01/24/23 15:17 Pulse Ox 98 01/24/23 15:17 O2 Del Method Room Air 01/24/23 15:17 01/24/23 01/24/23 01/24/23 06:59 14:59 22:59 Intake Total 270 / 3465 650 / 650 Output Total 700 / 1475 Balance -430 / 1989 650 / 650 Physical Exam Narrative: General: No acute distress, AO x3 HEENT: PERRLA, pupils bilaterally equal and reactive, pallors not present Chest: Normal vesicular breath sounds, no added sounds, equal good air entry bilaterally CVS: S1-S2 regular, no murmurs, no tachycardia, no gallops, no rubs Abdomen: Soft, nontender, no organomegaly, bowel sounds present Neuro: No focal deficits, no facial deformity, AO x3, power 5/5 in all limbs Urinary Catheter Management: Lozano: Cath Placed During This Visit: yes, but has since been removed by the nurse Reason for Continuing Indwelling Catheter: Decision to DC Catheter Urinary Catheter Date of Insertion: 01/23/23 Urinary Catheter Time of Insertion: 07:35 Date Urinary Catheter Removed: 01/24/23 Time Urinary Catheter Discontinued: 06:30 Data 01/24/23 05:39 01/24/23 05:39 Micro: Microbiology 01/23/23 08:25 Gram Stain - Final Synovial Fluid Body Fluid Culture - Preliminary A&P Assessment and plan (1) Failure of total knee arthroplasty: Patient with recent right knee arthroplasty on December 24, 2022 found to have migrated hardware. Status post revision surgery today which she tolerated well. Pain currently controlled, however patient is requesting alternate pain medications instead of opiates as they make her hallucinate. Change pain medications to tramadol 50 mg p.o. every 8 hours as needed. Additionally may use Toradol 15 mg IV every 8 hours for breakthrough pain for the next 3 days. Avoid using NSAIDs for longer than that in an elderly patient. IV Tylenol for postop pain if needed. Discontinue oxycodone. Qualifiers: Encounter type: initial encounter Qualified Code(s): T84.018A - Broken internal joint prosthesis, other site, initial encounter; Z96.659 - Presence of unspecified artificial knee joint (2) Parkinson disease: Continue home dose of carbidopa levodopa. (3) HTN (hypertension): Blood pressure is currently 102-156 , closely monitor, add prn hydralazine for SBP > 170 Qualifiers: Hypertension type: essential hypertension Qualified Code(s): I10 - Essential (primary) hypertension (4) Peripheral neuropathy: Plan Dispo: Patient was in [facility] after her last surgery.. Lives alone. Therapy assessments. Appropriate disposition planning Attestations Medical Necessity Statement*: pain management, will benefit from ongoing inpatient therapy, disposition planning Coding Level of Care Code Acute Code for Chg Fwd Diagnoses Failure of total knee arthroplasty T84.018A; Z96.659 Encounter type: initial encounter Parkinson disease G20 HTN (hypertension) I10 Hypertension type: essential hypertension Peripheral neuropathy G62.9
[2023-01-24] MEDS: acetaminophen 500 mg Tablet 650 MG PO ×2 (16:02→20:43)
[2023-01-24] MEDS: calcium carbonate 500 mg Chew Tablet 1000 MG PO (18:14)
[2023-01-25] VITALS (8 sets, daily range): BP systolic 105–185; BP diastolic 61–85; PULSE 74–99; RESP 16–19; TEMP 36.4–37.1; O2SAT 90–99
[2023-01-25 03:59] LABS: Basophils % 0.4 %; Eosinophils # 0.1 10^3/uL (0.0-0.8); Eosinophils % 0.6 %; Hematocrit 30.3 % (37.0-47.0); Hemoglobin 9.4 g/dL (11.5-15.3); Lymphocytes # 1.5 10^3/uL (0.8-4.8); Lymphocytes % 15.9 %; Mean Corpuscular Hemoglobin 32.2 pg (28.0-34.0); Mean Corpuscular Volume 103.8 fl (81-99); Mean Platelet Volume 11.6 fL (7.4-10.4); Monocytes # 1.1 10^3/uL (0.2-0.9); Monocytes % 11.5 %; Neutrophils # 6.37 10^3/uL (1.8-7.7); Neutrophils % 68.9 %; Nucleated Red Blood Cells % 0 %; Platelet Count 173 10^3/cmm (130-400); Red Blood Count 2.92 10^6/uL (4.1-5.3); Red Cell Distribution Width 13.9 % (12.1-15.1); White Blood Count 9.3 10^3/uL (4.0-10.0)
[2023-01-25 04:17] LABS: Alanine Aminotransferase 9 U/L (0-33); Alkaline Phosphatase 207 U/L (35-105); Anion Gap 13.2 (5-19); Aspartate Amino Transferase 20 U/L (0-32); Blood Urea Nitrogen 23 mg/dL (8-23); Calcium 8.7 mg/dL (8.5-10.5); Carbon Dioxide 26 mmol/L (22-29); Chloride 104 mmol/L (98-107); Globulin 3.1 g/dL (1.3-4.6); Glucose 97 mg/dL (65-115); Osmolality Calculated 292 mOsm/kg (285-295); Potassium 4.2 mmol/L (3.5-5.1); Sodium 139 mmol/L (136-145); Total Bilirubin 0.3 mg/dL (0.15-1.2); Total Protein 6.1 g/dL (6.6-8.7)
[2023-01-25] MEDS: lisinopril 20 mg Tablet PO ×2 (06:14→20:49)
[2023-01-25] MEDS: carvedilol 25 mg Tablet PO ×2 (06:14→20:49)
[2023-01-25] MEDS: iron polysaccharide complex 150 mg Capsule PO ×2 (08:29→17:05)
[2023-01-25] MEDS: sennosides-docusate Tablet 2 TAB PO ×2 (08:29→17:12)
[2023-01-25] MEDS: pantoprazole DR 40 mg Tablet PO (08:29)
[2023-01-25] MEDS: carbidopa-levodopa 25-100mg Tablet 1 EACH PO ×3 (08:29→17:04)
[2023-01-25] MEDS: multivitamin therapeutic Tablet 1 TAB PO (08:29)
[2023-01-25] MEDS: acetaminophen 500 mg Tablet 650 MG PO ×2 (08:29→17:04)
[2023-01-25] MEDS: aspirin 325 mg EC Tablet PO (08:29)
[2023-01-25] MEDS: cholecalciferol (vitamin D3) 1,000 unit Tablet 1000 UNIT PO (08:29)
[2023-01-25] MEDS: calcium carbonate 500 mg Chew Tablet 1000 MG PO ×2 (08:29→17:05)
--- NOTE | 2023-01-25 15:16 | XRR_ITS ---
PROCEDURE INFORMATION: Exam: XR Chest Exam date and time: 01/25/2023 3:25 PM Age: 77 years old Clinical indication: Cough and shortness of breath; Additional info: Evalute for pneumonia vs atelactasis post op TECHNIQUE: Imaging protocol: Radiologic exam of the chest. Views: 1 view. COMPARISON: CR XR chest 1V portable [id number] 11/17/2021 4:34 PM FINDINGS: Lungs: Cardiac silhouette size, and vascularity are somewhat accentuated, likely related to poor inspiration/expansion however clinical correlation for mild CHF should be obtained. Upper lungs are clear. Lung bases are suboptimally assessed however there is probable new peribronchial thickening and ill-defined patchy opacity in the left lung base which may represent atelectasis versus developing pneumonia. Follow-up should be obtained.. Calcified granuloma lateral left mid lung zone. Pleural spaces: New blunting of left CP angle suggesting new small pleural effusion. No pneumothorax. Heart/Mediastinum: As above. Bones/joints: No acute osseous findings. Osteopenia. Probable decreased acromial humeral space on the left suggesting chronic rotator cuff tear. Soft tissues: Surgical clips in the right axillary region. Other findings: Single view was submitted. XR/XR chest 1V portable [id number] IMPRESSION: 1. Accentuated cardiac silhouette size and vascularity. See discussion above. 2. New peribronchial thickening/ill-defined patchy opacity in the left lung base and new small pleural effusion. See discussion above. Follow-up should be obtained.
--- NOTE | 2023-01-25 15:19 | PM.PN ---
Subjective Subjective: Complains of cough. Has not done spirometry today stating that she has been busy with therapy. Saturating 99% on room air. afebrile Medications: Reviewed: Yes Vitals/I&O/Wt Last Vital Signs Temp 97.7 F 01/25/23 11:16 Pulse 74 01/25/23 11:16 Resp 16 01/25/23 11:16 BP 150/74 01/25/23 11:16 Pulse Ox 99 01/25/23 11:16 O2 Del Method Room Air 01/25/23 11:16 01/25/23 01/25/23 01/25/23 06:59 14:59 22:59 Intake Total 240 / 1610 840 / 840 Balance 240 / 1610 840 / 840 Physical Exam Narrative: General: No acute distress, AO x3 HEENT: PERRLA, pupils bilaterally equal and reactive, pallors not present Chest: Normal vesicular breath sounds, no added sounds, equal good air entry bilaterally CVS: S1-S2 regular, no murmurs, no tachycardia, no gallops, no rubs Abdomen: Soft, nontender, no organomegaly, bowel sounds present Neuro: No focal deficits, no facial deformity, AO x3, power 5/5 in all limbs Urinary Catheter Management: Lozano: Cath Placed During This Visit: yes, but has since been removed by the nurse Reason for Continuing Indwelling Catheter: Decision to DC Catheter Urinary Catheter Date of Insertion: 01/23/23 Urinary Catheter Time of Insertion: 07:35 Date Urinary Catheter Removed: 01/24/23 Time Urinary Catheter Discontinued: 06:30 Data 01/25/23 03:29 01/25/23 03:29 Micro: Microbiology 01/23/23 08:25 Gram Stain - Final Synovial Fluid Body Fluid Culture - Preliminary 01/23/23 08:25 Anaerobic Culture - Preliminary Knee - #1 A&P Assessment and plan (1) Failure of total knee arthroplasty: Patient with recent right knee arthroplasty on December 24, 2022 found to have migrated hardware. Status post revision surgery which she tolerated well. Pain currently controlled Continue tramadol 50 mg p.o. every 8 hours as needed. Additionally may use Toradol 15 mg IV every 8 hours for breakthrough pain for the next 3 days. Avoid using NSAIDs for longer than that in an elderly patient. IV Tylenol for postop pain if needed. Discontinue oxycodone per patient request. Qualifiers: Encounter type: initial encounter Qualified Code(s): T84.018A - Broken internal joint prosthesis, other site, initial encounter; Z96.659 - Presence of unspecified artificial knee joint (2) Parkinson disease: Continue home dose of carbidopa levodopa. (3) HTN (hypertension): Blood pressure is currently 102-156 , closely monitor, added prn hydralazine for SBP > 170 Qualifiers: Hypertension type: essential hypertension Qualified Code(s): I10 - Essential (primary) hypertension (4) Peripheral neuropathy: Plan Developing cough today, encouraged spirometry. Check Covid Ag and CXR for atelactasis vs developing pneumonia. Dispo: Patient was in intermediate after her last surgery.. Lives alone. Therapy assessments. Appropriate disposition planning ongoing, planned SNF Attestations Medical Necessity Statement*: ongoing disposition planning Coding Level of Care Code Acute Code for Chg Fwd Diagnoses Failure of total knee arthroplasty T84.018A; Z96.659 Encounter type: initial encounter Parkinson disease G20 HTN (hypertension) I10 Hypertension type: essential hypertension Peripheral neuropathy G62.9
[2023-01-25] MEDS: chlorhexidine gluconate 0.12% Btl 473 mL 30 ML MUCOUS MEM ×2 (17:05→20:56)
[2023-01-25] MEDS: FUROsemide 10 mg/mL SDV 2mL 20 MG IVP (17:05)
[2023-01-25] MEDS: mupirocin oint 22 gm 1 APPLIC NASAL (17:13)
[2023-01-25] MEDS: acetaminophen 325 mg Tablet 650 MG PO (22:36)
--- NOTE | 2023-01-25 22:59 | P.PN_ITS ---
Subjective Subjective: Patient seen and examined this afternoon. Patient recovering well postoperatively. Patient is now postoperative day 2 from revision right total knee arthroplasty. Patient's progressing well with therapy. Plan for discharge to long term facility likely tomorrow. Vitals/I&O/Wt Last Vital Signs Temp 98.1 F 01/25/23 19:26 Pulse 99 01/25/23 19:26 Resp 17 01/25/23 19:26 BP 122/73 01/25/23 19:26 Pulse Ox 97 01/25/23 19:26 O2 Del Method Room Air 01/25/23 16:27 01/25/23 01/25/23 01/25/23 06:59 14:59 22:59 Intake Total 240 / 1610 840 / 840 600 / 1440 Balance 240 / 1610 840 / 840 600 / 1440 Physical Exam Narrative: Examination of the right lower extremity right lower extremity has a bandage in ice on in place to the right knee bandages left on in place. Distal pulses are palpable to the right lower extremity toes warm well-perfused. Compartments are soft and compressible. She is able to wiggle her toes as well as plantarflex and dorsiflex ankle. Sensations intact light touch distally. Examination of the left shoulder she has minimal active range of motion has tenderness to palpation over the bicipital groove anteriorly. Urinary Catheter Management: Lozano: Cath Placed During This Visit: yes, but has since been removed by the nurse Reason for Continuing Indwelling Catheter: Decision to DC Catheter Urinary Catheter Date of Insertion: 01/23/23 Urinary Catheter Time of Insertion: 07:35 Date Urinary Catheter Removed: 01/24/23 Time Urinary Catheter Discontinued: 06:30 Data 01/25/23 03:29 01/25/23 03:29 Micro: Microbiology 01/23/23 08:25 Anaerobic Culture - Preliminary Knee - #1 01/23/23 08:25 Gram Stain - Final Synovial Fluid Body Fluid Culture - Preliminary Xray Ortho: Radiologist's impression: Ordering Provider/Ordering MD: Taj Baires Date of Service: 01/24/23 Procedure(s): XR shoulder LT min 2V* [id number] Accession Number(s): [id number] Report Number: [id number] PROCEDURE INFORMATION: Exam: XR Left Shoulder Exam date and time: 01/24/2023 7:40 AM Age: 77 years old Clinical indication: Pain; Upper arm; Left; Additional info: Left shoulder pain TECHNIQUE: Imaging protocol: Radiologic exam of the left shoulder. Views: 2 or more views. COMPARISON: CR XR chest 1V portable [id number] 11/17/2021 4:34 PM FINDINGS: Bones/joints: There is marked up lifting of the humeral head resulting in marked narrowing of the supraspinatus outlet likely secondary to chronic rotator cuff tear. There are mild-moderate degenerative changes at the shoulder joint and AC joint. No fracture, dislocation or underlying bone lesion detected. Soft tissues: Normal. XR/XR shoulder LT min 2V* [id number] IMPRESSION: No acute bony abnormalities. ? A&P Assessment and plan (1) Failure of total knee arthroplasty: Qualifiers: Encounter type: initial encounter Qualified Code(s): T84.018A - Broken internal joint prosthesis, other site, initial encounter; Z96.659 - Presence of unspecified artificial knee joint (2) Closed fracture of medial condyle of distal end of right femur: Qualifiers: Encounter type: initial encounter Fracture alignment: displaced Qualified Code(s): S72.431A - Displaced fracture of medial condyle of right femur, initial encounter for closed fracture (3) 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 Plan Patient postoperative day 2 from a revision right total knee arthroplasty. With my partner Dr. Stout. Pain controlled with medications. At this point time postoperative pain control, DVT prophylaxis. Hospitalist on board as primary and appreciate their medical management. Patient will work with PT/OT. Weight- bear as tolerated to the right lower extremity as well as encourage knee range of motion as tolerated. A.m. labs are reviewed. X-rays of the left shoulder demonstrate no acute fracture or dislocation. Chronic rotator cuff arthropathy changes noted. Can be managed in outpatient setting. No further acute orthopedic surgical intervention required at this time. Orthopedics will continue to follow along and monitor patient. All questions answered. Attestations Medical Necessity Statement*: Ongoing postoperative care right total knee arthroplasty revision Coding Level of Care Code Acute Code for Chg Fwd Diagnoses Failure of total knee arthroplasty T84.018A; Z96.659 Encounter type: initial encounter Closed fracture of medial condyle of distal end of right femur S72.431A Encounter type: initial encounter Fracture alignment: displaced Status post total right knee replacement not using cement Z96.651 Time Spent (min) 20
[2023-01-26 03:56] VITALS: BP 140/79; PULSE 90; RESP 17; TEMP 36.7; O2SAT 99
[2023-01-26 04:56] LABS: Mean Corpuscular Hemoglobin 31.1 pg (28.0-34.0); Mean Corpuscular Volume 100.3 fl (81-99); Mean Platelet Volume 11.3 fL (7.4-10.4); Platelet Count 198 10^3/cmm (130-400); Red Blood Count 2.89 10^6/uL (4.1-5.3); Red Cell Distribution Width 13.8 % (12.1-15.1); White Blood Count 6.8 10^3/uL (4.0-10.0)
[2023-01-26 05:11] LABS: Alanine Aminotransferase 10 U/L (0-33); Albumin Level 2.8 g/dL (3.5-5.2); Alkaline Phosphatase 157 U/L (35-105); Anion Gap 12.8 (5-19); Aspartate Amino Transferase 16 U/L (0-32); Blood Urea Nitrogen 19 mg/dL (8-23); Calcium 8.6 mg/dL (8.5-10.5); Carbon Dioxide 27 mmol/L (22-29); Chloride 101 mmol/L (98-107); Globulin 2.9 g/dL (1.3-4.6); Glucose 110 mg/dL (65-115); Osmolality Calculated 287 mOsm/kg (285-295); Potassium 3.8 mmol/L (3.5-5.1); Sodium 137 mmol/L (136-145); Total Bilirubin 0.3 mg/dL (0.15-1.2); Total Protein 5.7 g/dL (6.6-8.7)
[2023-01-26 05:18] LABS: Absolute Segmented Neutrophil 4.6 10/cmm (1.6-7.1); Eosinophils 0 %; Lymphocytes 16 %; Lymphocytes Absolute 1.1 10^3/cmm (1.2-3.4); Monocytes Absolute 0.8 10^3/cmm (0.1-0.6); Segmented Neutrophils 67 %; Total Cells Counted 100 (0-100)
[2023-01-26 05:19] LABS: Absolute Neutrophil 4.6 10^3/cmm (1.4-6.5); Hypochromasia 1+; Pathology Refferal Yes; Platelet Estimate Normal (Normal)
[2023-01-26] MEDS: carvedilol 25 mg Tablet PO (06:21)
[2023-01-26] MEDS: lisinopril 20 mg Tablet PO (06:21)
[2023-01-26 06:48] LABS: SARS Covid-2 Antigen negative (Negative)
[2023-01-26] MEDS: TRAMadol 50 mg Tablet PO (07:51)
[2023-01-26 07:53] VITALS: BP 168/78; PULSE 98; RESP 15; TEMP 36.7; O2SAT 98
[2023-01-26] MEDS: sennosides-docusate Tablet 2 TAB PO (07:59)
--- NOTE | 2023-01-26 07:59 | P.PN_ITS ---
Subjective Subjective: Patient seen and examined this morning no issues overnight. Patient be weightbearing as tolerated to the right lower extremity. Work with PT/OT. Stable from Ortho standpoint plan for likely discharge to SNF today. Vitals/I&O/Wt Last Vital Signs Temp 98.0 F 01/26/23 07:53 Pulse 98 01/26/23 07:53 Resp 15 01/26/23 07:53 BP 168/78 01/26/23 07:53 Pulse Ox 98 01/26/23 07:53 O2 Del Method Room Air 01/26/23 07:53 01/25/23 01/26/23 01/26/23 22:59 06:59 14:59 Intake Total 600 / 1440 480 / 1920 Balance 600 / 1440 480 / 1920 Physical Exam Narrative: Examination of the right lower extremity right lower extremity has a bandage in ice on in place to the right knee bandages left on in place. Distal pulses are palpable to the right lower extremity toes warm well-perfused. Compartments are soft and compressible. She is able to wiggle her toes as well as plantarflex and dorsiflex ankle. Sensations intact light touch distally. Examination of the left shoulder she has minimal active range of motion has tenderness to palpation over the bicipital groove anteriorly. Urinary Catheter Management: Lozano: Cath Placed During This Visit: yes, but has since been removed by the nurse Reason for Continuing Indwelling Catheter: Decision to DC Catheter Urinary Catheter Date of Insertion: 01/23/23 Urinary Catheter Time of Insertion: 07:35 Date Urinary Catheter Removed: 01/24/23 Time Urinary Catheter Discontinued: 06:30 Data 01/26/23 04:25 01/26/23 04:25 Micro: Microbiology 01/23/23 08:25 Anaerobic Culture - Preliminary Knee - #1 01/23/23 08:25 Gram Stain - Final Synovial Fluid Body Fluid Culture - Preliminary A&P Assessment and plan (1) Failure of total knee arthroplasty: Qualifiers: Encounter type: initial encounter Qualified Code(s): T84.018A - Broken internal joint prosthesis, other site, initial encounter; Z96.659 - Presence of unspecified artificial knee joint (2) Closed fracture of medial condyle of distal end of right femur: Qualifiers: Encounter type: initial encounter Fracture alignment: displaced Qualified Code(s): S72.431A - Displaced fracture of medial condyle of right femur, initial encounter for closed fracture (3) 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 Plan Patient postoperative day 3 from a revision right total knee arthroplasty. With my partner Dr. Stout. Pain controlled with medications. At this point time postoperative pain control, DVT prophylaxis. Hospitalist on board as primary and appreciate their medical management. Patient will work with PT/OT. Weight- bear as tolerated to the right lower extremity as well as encourage knee range of motion as tolerated. A.m. labs are reviewed. X-rays of the left shoulder demonstrate no acute fracture or dislocation. Chronic rotator cuff arthropathy changes noted. Can be managed in outpatient setting. No further acute orthopedic surgical intervention required at this time. Patient stable for discharge from orthopedic standpoint to care home facility. No further orthopedic surgical intervention required at this time. There is any questions pertaining to patient's care for her to contact myself or the orthopedic department. Patient follow-up with Dr. Stout in the office in 2 weeks. Patient understands if that she has any questions or concerns and contact the office. Attestations Medical Necessity Statement*: Ongoing postoperative care right total knee arthroplasty revision Coding Level of Care Code Acute Code for Chg Fwd Diagnoses Failure of total knee arthroplasty T84.018A; Z96.659 Encounter type: initial encounter Closed fracture of medial condyle of distal end of right femur S72.431A Encounter type: initial encounter Fracture alignment: displaced Status post total right knee replacement not using cement Z96.651 Time Spent (min) 15
[2023-01-26] MEDS: acetaminophen 325 mg Tablet 650 MG PO (08:02)
[2023-01-26] MEDS: cholecalciferol (vitamin D3) 1,000 unit Tablet 1000 UNIT PO (08:02)
[2023-01-26] MEDS: aspirin 325 mg EC Tablet PO (08:03)
[2023-01-26] MEDS: carbidopa-levodopa 25-100mg Tablet 1 EACH PO ×2 (08:03→11:46)
[2023-01-26] MEDS: iron polysaccharide complex 150 mg Capsule PO (08:03)
[2023-01-26] MEDS: multivitamin therapeutic Tablet 1 TAB PO (08:03)
[2023-01-26] MEDS: calcium carbonate 500 mg Chew Tablet 1000 MG PO (08:03)
[2023-01-26] MEDS: pantoprazole DR 40 mg Tablet PO (08:03)
[2023-01-26] MEDS: chlorhexidine gluconate 0.12% Btl 473 mL 30 ML MUCOUS MEM ×2 (08:20→12:58)
[2023-01-26] MEDS: mupirocin oint 22 gm 1 APPLIC NASAL (08:21)
--- NOTE | 2023-01-26 09:25 | P.DS_ITS ---
Discharge Providers Date of Admission: 01/23/23 12:30 Date of Discharge: January 26, 2023 Attending Provider at Admission: Kaycee Stout MD Attending Provider at Discharge: Freddy Thorpe MD Primary Care Provider: BRETT Perry Diagnoses at Discharge Discharge Diagnosis (1) Failure of total knee arthroplasty: Status: Acute Qualifiers: Encounter type: initial encounter Qualified Code(s): T84.018A - Broken internal joint prosthesis, other site, initial encounter; Z96.659 - Presence of unspecified artificial knee joint (2) Closed fracture of medial condyle of distal end of right femur: Status: Acute Qualifiers: Encounter type: initial encounter Fracture alignment: displaced Qualified Code(s): S72.431A - Displaced fracture of medial condyle of right femur, initial encounter for closed fracture (3) 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 Patellar deformity with osteophytes superiorly nearly as large as the patella. Large loose body which was removed as well Procedure done: Right total knee arthroplasty with Marty guidance Implants: The [employer] total knee system with a size 4 triathlon beaded cruciate retaining femur right, a triathlon titanium tibial component size 4 beaded, a triathlon X3 tibial bearing CS insert size 4 X 14 mm and a beaded triathlon titanium asymmetric patella size 35 x 10 mm Reason for Visit Reason for Visit: T84.018A Hospital Course Hospital Course 77 year old female with PMH Parkinson's , HTN, peripheral neuropathy who underwent right knee total arthroplasty for severe osteoarthritis of the right knee on December 24, 2022.? She continued to have pain with movement at the knee and was found to have femoral hardware that has moved proximally.During the hospital stay she underwent total right knee revision, during the hospital stay she also had some cough For which x-ray chest was done: More suggestive of atelectasis, she was encouraged to use incentive spirometer, rapid COVID antigen was negative, at the time of discharge cough had significantly improved. Patient was discharged in stable condition to SNF. Physical Exam Narrative: General: No acute distress, AO x3 HEENT: PERRLA, pupils bilaterally equal and reactive, pallors not present Chest: Normal vesicular breath sounds, no added sounds, equal good air entry bilaterally CVS: S1-S2 regular, no murmurs, no tachycardia, no gallops, no rubs Abdomen: Soft, nontender, no organomegaly, bowel sounds present Neuro: No focal deficits, no facial deformity, AO x3, power 5/5 in all limbs Urinary Catheter Management: Lozano: Cath Placed During This Visit: yes, but has since been removed by the nurse Reason for Continuing Indwelling Catheter: Decision to DC Catheter Urinary Catheter Date of Insertion: 01/23/23 Urinary Catheter Time of Insertion: 07:35 Date Urinary Catheter Removed: 01/24/23 Time Urinary Catheter Discontinued: 06:30 Discharge Data Studies Completed and Pending Completed Studies During Hospitalization Category Date Time Status CXRP [XR chest 1V portable 32550] Routine Exams 01/25/23 15:16 Completed XR knee RT 1-2V 63657 Routine Exams 01/23/23 12:19 Completed XR shoulder LT min 2V* 13883 Routine Exams 01/24/23 08:35 Completed Pending at discharge Category Date Time Status Anaerobic Culture Routine Lab 01/23/23 08:25 Results Body Fluid Culture & GS Routine Lab 01/23/23 08:25 Results COVID [SARS Covid-2 Antigen] Routine Lab 01/25/23 15:16 Uncollected Radiology Impressions Knee X-Ray 01/23/23 12:19 IMPRESSION: 1. Revised right total knee prosthesis in satisfactory position. Shoulder X-Ray 01/24/23 08:35 IMPRESSION: No acute bony abnormalities. Chest X-Ray 01/25/23 15:16 IMPRESSION: 1. Accentuated cardiac silhouette size and vascularity. See discussion above. 2. New peribronchial thickening/ill-defined patchy opacity in the left lung base and new small pleural effusion. See discussion above. Follow-up should be obtained. Laboratory Results WBC 6.8 10^3/uL (4.0-10.0) 01/26/23 04:25 RBC 2.89 10^6/uL (4.1-5.3) L 01/26/23 04:25 Hgb 9.0 g/dL (11.5-15.3) L 01/26/23 04:25 Hct 29.0 % (37.0-47.0) L 01/26/23 04:25 MCV 100.3 fl (81-99) H 01/26/23 04:25 MCH 31.1 pg (28.0-34.0) 01/26/23 04:25 MCHC 31.0 g/dL (30.0-36.0) 01/26/23 04:25 RDW 13.8 % (12.1-15.1) 01/26/23 04:25 Plt Count 198 10^3/cmm (130-400) 01/26/23 04:25 MPV 11.3 fL (7.4-10.4) H 01/26/23 04:25 Neut % (Auto) 68.9 % 01/25/23 03:29 Lymph % (Auto) Not Reportable 01/26/23 04:25 Sharkey % (Auto) Not Reportable 01/26/23 04:25 Eos % (Auto) 0.6 % 01/25/23 03:29 Baso % (Auto) 0.4 % 01/25/23 03:29 Neut # (Auto) 6.37 10^3/uL (1.8-7.7) 01/25/23 03:29 Lymph # (Auto) Not Reportable 01/26/23 04:25 Sharkey # (Auto) Not Reportable 01/26/23 04:25 Eos # (Auto) 0.1 10^3/uL (0.0-0.8) 01/25/23 03:29 Baso # (Auto) 0.0 10^3/uL (0.0-0.1) 01/25/23 03:29 Nucleated RBC % (auto) 0 % 01/25/23 03:29 Total Counted 100 (0-100) 01/26/23 04:25 Atypical Lymphs % 0.0 % (0-5) 01/26/23 04:25 Absolute Neutrophils 4.6 10^3/cmm (1.4-6.5) 01/26/23 04:25 Segmented Neutrophils 67 % 01/26/23 04:25 Abs Segm Neuts (Man) 4.6 10/cmm (1.6-7.1) 01/26/23 04:25 Band Neutrophils 0.0 % 01/26/23 04:25 Abs Band Neuts (Man) 0.0 10^3/cmm (0.0-1.2) 01/26/23 04:25 Absolute Lymphocytes 1.1 10^3/cmm (1.2-3.4) L 01/26/23 04:25 Lymphocytes (Manual) 16 % 01/26/23 04:25 Monocytes (Manual) 12.0 % 01/26/23 04:25 Absolute Monocytes 0.8 10^3/cmm (0.1-0.6) H 01/26/23 04:25 Eosinophils (Manual) 0 % 01/26/23 04:25 Absolute Eosinophils 0.0 10^3/cmm (0.0-0.7) 01/26/23 04:25 Basophils (Manual) 0.0 % 01/26/23 04:25 Absolute Basophils 0.0 10^3/cmm (0.0-0.2) 01/26/23 04:25 Metamyelocytes 2.0 % 01/26/23 04:25 Myelocytes 3.0 % 01/26/23 04:25 Nucleated RBCs # 0.0 /100WBC 01/25/23 03:29 Pathologist Review Yes 01/26/23 04:25 Platelet Estimate Normal (Normal) 01/26/23 04:25 Hypochromasia 1+ H 01/26/23 04:25 Sodium 137 mmol/L (136-145) 01/26/23 04:25 Potassium 3.8 mmol/L (3.5-5.1) 01/26/23 04:25 Chloride 101 mmol/L (98-107) 01/26/23 04:25 Carbon Dioxide 27 mmol/L (22-29) 01/26/23 04:25 Anion Gap 12.8 (5-19) 01/26/23 04:25 BUN 19 mg/dL (8-23) 01/26/23 04:25 Creatinine 0.6 mg/dL (0.5-0.9) 01/26/23 04:25 GFR Calculation Not Reportable 01/26/23 04:25 Glucose 110 mg/dL (65-115) 01/26/23 04:25 Calculated Osmolality 287 mOsm/kg (285-295) 01/26/23 04:25 Calcium 8.6 mg/dL (8.5-10.5) 01/26/23 04:25 Total Bilirubin 0.3 mg/dL (0.15-1.2) 01/26/23 04:25 AST 16 U/L (0-32) 01/26/23 04:25 ALT 10 U/L (0-33) 01/26/23 04:25 Alkaline Phosphatase 157 U/L (35-105) H 01/26/23 04:25 Total Protein 5.7 g/dL (6.6-8.7) L 01/26/23 04:25 Albumin 2.8 g/dL (3.5-5.2) L 01/26/23 04:25 Globulin 2.9 g/dL (1.3-4.6) 01/26/23 04:25 Urine Color Yellow (Yellow) 01/23/23 Unknown Urine Appearance Sl hazy (CLEAR) A 01/23/23 Unknown Urine pH 6 (5-7) 01/23/23 Unknown Ur Specific A[place]on 1.020 (1.005-1.030) 01/23/23 Unknown Urine Protein Trace (Negative) 01/23/23 Unknown Urine Glucose (UA) Norm (Normal) 01/23/23 Unknown Urine Ketones Negative (Negative) 01/23/23 Unknown Urine Blood Neg (Negative) 01/23/23 Unknown Urine Nitrate Negative (Negative) 01/23/23 Unknown Urine Bilirubin Neg (Negative) 01/23/23 Unknown Urine Urobilinogen 1 mg/dL (Negative) H 01/23/23 Unknown Ur Leukocyte Esterase Negative (Negative) 01/23/23 Unknown Urine RBC Rare /hpf (0-2) 01/23/23 Unknown Urine WBC 0-4 /hpf (0-5) H 01/23/23 Unknown Ur Squamous Epith Cells 5-10 /hpf (0-5) H 01/23/23 Unknown Amorphous Sediment Not Reportable 01/23/23 Unknown Urine Bacteria Trace /hpf (NONE) 01/23/23 Unknown Urine Mucus Trace /hpf 01/23/23 Unknown SARS-CoV-2 Ag (Rapid) negative (Negative) 01/26/23 06:25 Vitals Last Vital Signs Temp 98.0 F 01/26/23 07:53 Pulse 98 01/26/23 07:53 Resp 15 01/26/23 07:53 BP 168/78 01/26/23 07:53 Pulse Ox 98 01/26/23 07:53 O2 Del Method Room Air 01/26/23 07:53 Discharge Plan Discharge Patient Disposition: Xfer SNF Condition: Good Prescriptions: New oxycodone 5 mg tablet 5 mg PO Q4H PRN (Reason: pain) 7 Days Qty: 30 0RF Continued acetaminophen [Tylenol Extra Strength] 500 mg tablet 500 mg PO BID Hold Instructions: Resume on 01/08/23. calcium carbonate-vitamin D3 [Calcium 600 with Vitamin D3] 600 mg(1,500mg) - 500 unit capsule 1 cap PO DAILY multivitamin Tablet 1 tab PO DAILY (DME) trapeze bar See Rx Instructions .Route .MEDSUPPLY Qty: 1 0RF Rx Instructions: Utilize as Directed carvedilol 25 mg tablet 25 mg PO BID@, enalapril maleate 10 mg tablet 10 mg PO BID@, carbidopa-levodopa 25-100 mg tablet 1 tab PO TID@0815,1215,1615 Discharge Orders: Discharge Order (Routine); Ordered 01/26/23 Ordered By: Freddy Thorpe Referrals: [facility] [Outside] Kaycee Stout MD [Physician] - 01/30/23 10:45 am (Also on 02/11/23 at 0845) Discharge Diet: Advance as tolerated, Usual diet and As Directed Discharge Activity: Increase activity as tolerated, Limit activity as instructed and Use walker/crutches as instructed Patient Instructions: Knee Replacement (DC) Activity Restrictions/Additional Instructions: You may weight-bear as tolerated. Range of motion, strengthening, and gait training per physical therapy. Ice and elevation to right lower extremity. Discharge Attestations Time Spent in Discharge Care*: less than 30 min Quality Metrics Clinical Quality Measures [ No reported AMI, CVA or VTE this stay] Coding Level of Care Code Acute Code for Chg Fwd Diagnoses Failure of total knee arthroplasty T84.018A; Z96.659 Encounter type: initial encounter Closed fracture of medial condyle of distal end of right femur S72.431A Encounter type: initial encounter Fracture alignment: displaced Status post total right knee replacement not using cement Z96.651
--- NOTE | 2023-01-26 09:32 | PC.SOCIAL ---
Imm update Imm updated with patient at bedside. Copy of page 2 provided. Patient signed new IMM and verbalized understanding. Copy placed in chart and initialed, dated and timed.
[2023-01-26 11:21] VITALS: BP 109/60; PULSE 89; RESP 17; TEMP 36.3; O2SAT 97
[2023-01-26 15:32] VITALS: BP 109/60; PULSE 89; RESP 17; TEMP 36.3; O2SAT 97
== END 2023-01-26 14:30 | disposition skilled nursing facility (03) | DRG 467 ==
LOC: MEDSURG 12:54
PROVIDERS: Student in an Organized Health Care Education/Training Program; Admitting Provider Specialist; PCP Nurse Practitioner Family; Visit Provider Internal Medicine
PROC: 0SPC0JZ Removal of Synthetic Substitute from Right Knee Joint, Open Approach (ICD-10-PCS; principal; 2023-01-23 07:00)
DX: T84.032A Mechanical loosening of internal right knee prosthetic joint, initial encounter (principal); J98.11 Atelectasis; I10 Essential (primary) hypertension; G62.9 Polyneuropathy, unspecified; G20 Parkinson's disease; Z20.822 Contact with and (suspected) exposure to COVID-19; M19.012 Primary osteoarthritis, left shoulder; Z96.651 Presence of right artificial knee joint; Y83.1 Surgical operation with implant of artificial internal device as the cause of abnormal reaction of the patient, or of later complication, without mention of misadventure at the time of the procedure; M17.11 Unilateral primary osteoarthritis, right knee
CPT/HCPCS: 36415; 51702; 71045; 73030; 73560; 80048; 80053; 80503; 81001; 85007; 85025; 87070; 87075; 87205; 87426; 97110; 97116; 97161; 97165; 97530; C1713; C1776; C9290; J0131; J0360; J0690; J1100; J1580; J1940; J2370; J2405; J2704; J2795; J3010; J3370; J3490; J7030

== ENCOUNTER 2023-01-27 21:27 | Inpatient (IN) | payer MEDICARE, OTHER, SELFPAY ==
[2023-01-27 21:38] VITALS: BMI 21.5
[2023-01-27 22:16] VITALS: BP 107/87; PULSE 102; PULSE 105; RESP 14; TEMP 36.7; O2SAT 98
--- NOTE | 2023-01-27 22:16 | CTR_ITS ---
PROCEDURE INFORMATION: Exam: CTA Chest With Contrast Exam date and time: 01/27/2023 11:16 PM Age: 77 years old Clinical indication: Shortness of breath and other: Afib, recent knee surgery; Patient HX: Velvet, afib, knee surgery 01/23/23; Additional info: R/O pe TECHNIQUE: Imaging protocol: Computed tomographic angiography of the chest with contrast. Exam focused on the arteries. 3D rendering (Not supervised by radiologist): MIP and/or 3D reconstructed images were created by the technologist. Radiation optimization: All CT scans at this facility use at least one of these dose optimization techniques: automated exposure control; mA and/or kV adjustment per patient size (includes targeted exams where dose is matched to clinical indication); or iterative reconstruction. Contrast material: OMNI 350; Contrast volume: 70 ml; Contrast route: INTRAVENOUS (IV); REPORTING DATA: Count of CT and Cardiac NM exams in prior 12 months: This patient has received 2 known CTs and 0 known cardiac nuclear medicine studies in the 12 months prior to the current study. COMPARISON: CR (CHEST, ) 01/25/2023 3:25 PM RADIATION DOSE METRICS: Total DLP (mGy-cm): 234.16 FINDINGS: Pulmonary arteries: Large pulmonary arteries do suggest pulmonary hypertension. There is no evidence of main, lobar, or segmental occlusive PE. The study is of good quality. Aorta: Unremarkable. No aortic aneurysm. No aortic dissection. Lungs: Mild areas of bilateral mid to lower lung atelectasis, edema, or scarring. Pleural spaces: Very small bfase-ueqxkpx-dxgi-left pleural effusions. No pneumothorax. Heart: The heart is large. No pericardial effusion. Lymph nodes: No bulky hilar or mediastinal lymphadenopathy noted. Bones/joints: Skeletal structures are age appropriate. No acute fracture is seen. Soft tissues: Right axillary clips. Other findings: Advanced diffuse vascular calcification noted. CT/CT angio chest PE protcl [id number] IMPRESSION: 1. No PE. 2. Large heart with mild evidence of CHF or positive fluid balance with lung base atelectasis, edema, or airspace disease with small bilateral pleural effusions. Recommend three-month follow-up. 3. Lung scarring, COPD, and other chronic findings above.
--- NOTE | 2023-01-27 22:16 | P.HP_ITS ---
Providers/Chief Complaint Admitting Physician: Michelle Penn MD Primary Care Provider: BRETT Perry Chief Complaint: A Fib History of Present Illness Luly Castro is a 77 year old female with history of Parkinson's, hypertension, peripheral neuropathy with recent right knee total arthroplasty for severe osteoarthritis December 24, 2022 who had to have a total right knee revision and was discharged on 01/26/2023. She did have some postop atelectasis and was encouraged to use incentive spirometer. Rapid COVID was negative. She was discharged stably to longterm. Today at the longterm she says that she was sitting on the wheelchair and when physical therapy came to work with her her chin went down on chest and she had a syncopal event. She says her lips turned blue. She is never had this before. She does not remember if there were any preceding symptoms of lightheadedness or dizziness. She did not fall or hit her head. She was sitting in the wheelchair the whole time. She has had a history of breast cancer, neuropathy. She says that since this whole episode today she has felt okay all day long. She was taken to [facility] however there CAT scan was broken and they were unable to do a CT chest to rule out PE. She says she has been coughing since her previous hospital stay. She follows Dr. Brito for her Parkinson's disease. She has been on carbidopa levodopa for the last 5 years and has been stable. Does not have any blood pressure issues, hypotension or orthostatic symptoms that she knows of. At this point denies chest pain, shortness of breath, nausea, vomiting, diarrhea, abdominal pain. Patient has never had A-fib before. At the hospital today she was found to be in A-fib with heart rate up to 130s. She did get her home carvedilol dose later in the evening. Medications/Allergies Home Medications Medication Instructions Recorded Confirmed Last Taken Type acetaminophen 500 mg tablet 500 mg PO BID 12/26/19 01/27/23 01/22/23 History (Tylenol Extra Strength) calcium carbonate 600 mg-vitamin 1 cap PO DAILY 12/26/19 01/27/23 01/22/23 History D3 12.5 mcg (500 unit) capsule (Calcium 600 with Vitamin D3) multivitamin 1 tab PO DAILY 12/26/19 01/27/2323 History trapeze bar #1 ea 10/08/21 01/27/23 Unknown Rx carbidopa 25 mg-levodopa 100 mg 1 tab PO TID@0815,1215,1615 12/23/22 01/27/23 01/22/23 History tablet carvedilol 25 mg tablet 25 mg PO BID@07,19 12/23/22 01/27/23 01/23/23 04:30 History enalapril maleate 10 mg tablet 10 mg PO BID@07,12/23/22 01/27/23 01/22/23 History oxycodone 5 mg tablet 5 mg PO Q4H PRN pain 7 days #30 01/23/23 01/27/23 Unknown Rx tabs aspirin 325 mg tablet 325 mg PO DAILY 01/27/23 01/27/23 Unknown History celecoxib 200 mg capsule 200 mg PO DAILY 01/27/23 01/27/23 Unknown History Allergies Allergy/AdvReac Type Severity Reaction Status Date / Time No Known Allergies Allergy Verified 01/19/23 13:37 PFSH Acute PFSH: Medical History (Updated 01/27/23 @ 23:16 by Michelle Penn MD) Failure of total knee arthroplasty Hammertoes of both feet HTN (hypertension) Parkinson disease Peripheral neuropathy Surgical History H/O mastectomy H/O ovarian cystectomy H/O total knee replacement History of back surgery Family History Mother CAD (coronary artery disease) Diabetes Father CAD (coronary artery disease) Diabetes Social History Smoking and tobacco status: never smoked Female Reproductive History: Spontaneous abortions: No Vitals/I&O/Wt Last Vital Signs O2 Del Method Room Air 01/27/23 21:38 Weight last 48 hrs Weight 60.6 kg Physical Exam Narrative: General: Alert oriented x3, patient seen laying in bed, no acute distress, HEENT: Normocephalic, atraumatic, EOMI, breathing comfortably on room air. Cardio: Irregularly irregular, atrial fibrillation, heart rate below 100, normal S1-S2 Respiratory: Good bilateral air entry, no wheezes no rhonchi appreciated GI: Abdomen soft, nontender, nondistended, bowel sounds + Extremities: Mild edema right lower extremity secondary to postop changes. Neuro: Nonfocal A&P Assessment and plan (1) 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 (2) Syncope and collapse: (3) Unstable right knee: (4) Atrial fibrillation: (5) Primary osteoarthritis of right knee: (6) Parkinson disease: (7) HTN (hypertension): Qualifiers: Hypertension type: essential hypertension Qualified Code(s): I10 - Essential (primary) hypertension (8) Peripheral neuropathy: (9) Anemia: Plan #New onset atrial fibrillation with RVR #Syncope #Parkinson's disease #Hypertension #Right knee replacement status post total revision #Postoperative status #Elevated D-dimer #Anemia ? Continue carbidopa-levodopa. ? Check CTA chest to rule out PE ? Hold aspirin 325 daily at this time ? Continue carvedilol 25 twice daily, may uptitrate as warranted ? Heart rate is controlled and below 100 at this time. We will continue to monitor patient on telemetry at this time ? I will hold off on further medications. ? Hold off on enalapril. Blood pressure 107/87. ? Check echocardiogram ? Check TSH -Check procalcitonin, troponin series, potassium, magnesium level. Keep magnesium above 2 and potassium above 4. ? Placed on normal saline 75 cc/h. ? Unsure of syncope however possibility of underlying occult arrhythmia, dehydration, orthostasis? ? Check orthostatic vitals ? Continue dressing changes as per orthopedic surgery -At other facility patient's D-dimer was apparently 6.6 and she was loaded with Eliquis 10 mg one-time dose. I will check CTA first continuation of Eliquis since patient's hemoglobin is 9.0. ?Check iron, TIBC, ferritin. Monitor for bleeding. Check FOBT -Check venous Dopplers Full code SCDs Attestations Medical Necessity Statement*: > 2 midnight stay for atrial fibrillation, new onset Coding Level of Care Code G0426 (50 min) TH Encounter Time (min): 50 Patient seen via Telehealth in the acute care setting (hospital or ED location) by agreement and consent of patient or patient route service representative. Telehealth technology used during the visit includes video and audio. This patient encounter is appropriate and reasonable under the circumstances given the patient?s particular presentation at this time. The patient has been advised of the potential risks and limitations of this mode of treatment (including but not limited to the absence of in-person examination at this time) and has agreed to be treated by an off-site physician for this visit. If deemed clinically necessary from this telehealth visit, or if condition or consent for telehealth visit changes, an in-person visit will be arranged. For this encounter, total time for the origination of telehealth care on this date is as shown. 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
[2023-01-27 22:20] VITALS: BP 128/86; BP 132/108; BP 168/108; PULSE 108; PULSE 125; PULSE 133
--- NOTE | 2023-01-27 22:34 | ECG_ITS ---
[facility] Test Date: 2023-01-27 Pat Name: Luly Castro Department: Room: 106 Gender: Female Mechanical Intern: : 1945 Requested By: Michelle Penn Order Number: [id number] Elvis MD: Christy Estes M.D. Measurements Intervals [place] Rate: 110 P: 0 MT: 0 QRS: 19 QRSD: 77 T: 64 QT: 336 QTc: 455 Interpretive Statements ATRIAL FIBRILLATION WITH RAPID VENTRICULAR RESPONSE VOLTAGE CRITERIA FOR LVH [MEETS CRITERIA IN ONE OF: R(aVL), S(V1), R(V5), R(V5/V6)+S(V1)] NONSPECIFIC T-WAVE ABNORMALITY Compared to ECG 11/17/2021 17:13:34 T-wave abnormality now present Sinus rhythm no longer present Electronically Signed On 01-28-2023 4:15:47 CDT by Christy Estes M.D. [id number]
[2023-01-27] MEDS: sodium chloride 0.9% 1,000 ML 75 ML IV (22:45)
[2023-01-27] MEDS: heparin 5,000 unit/mL INJ 1 mL 5000 UNIT SUBCUT (23:00)
[2023-01-27] MEDS: iohexol 350 mg/mL 500 mL Btl (per mL) IV (23:19)
[2023-01-27 23:51] VITALS: BP 130/84; PULSE 124; RESP 19; TEMP 36.4; O2SAT 97
[2023-01-28] VITALS (8 sets, daily range): BP systolic 119–162; BP diastolic 50–108; PULSE 67–114; RESP 15–21; TEMP 36.4–37.2; O2SAT 95–99
[2023-01-28 00:27] LABS: Hematocrit 31.5 % (37.0-47.0); Hemoglobin 9.9 g/dL (11.5-15.3); Mean Corpuscular HGB Conc 31.4 g/dL (30.0-36.0); Mean Corpuscular Hemoglobin 31.5 pg (28.0-34.0); Mean Corpuscular Volume 100.3 fl (81-99); Mean Platelet Volume 11.1 fL (7.4-10.4); Platelet Count 250 10^3/cmm (130-400); Red Blood Count 3.14 10^6/uL (4.1-5.3); Red Cell Distribution Width 14.1 % (12.1-15.1); Slide Review Slide Review Perform
[2023-01-28 00:29] LABS: Absolute Segmented Neutrophil 5.4 10/cmm (1.6-7.1); Eosinophils 1 %; Lymphocytes 15 %; Monocytes Absolute 0.8 10^3/cmm (0.1-0.6); Platelet Estimate Normal (Normal); Segmented Neutrophils 67 %; Total Cells Counted 100 (0-100); Troponin(5th) Baseline 34 ng/L (0-10)
[2023-01-28 00:36] LABS: Procalcitonin 0.04 ng/mL (0-0.5)
[2023-01-28 00:48] LABS: Alanine Aminotransferase 15 U/L (0-33); Albumin Level 3.3 g/dL (3.5-5.2); Alkaline Phosphatase 158 U/L (35-105); Aspartate Amino Transferase 23 U/L (0-32); Blood Urea Nitrogen 18 mg/dL (8-23); Calcium 8.7 mg/dL (8.5-10.5); Carbon Dioxide 25 mmol/L (22-29); Chloride 101 mmol/L (98-107); Ferritin 764 ng/mL (15-150); Globulin 2.8 g/dL (1.3-4.6); Glucose 106 mg/dL (65-115); Iron 34 ug/dL (37-145); Magnesium 1.9 mg/dL (1.7-2.3); Osmolality Calculated 286 mOsm/kg (285-295); Percent Saturation 13.8 % (20-50); Sodium 137 mmol/L (136-145); Total Bilirubin 0.3 mg/dL (0.15-1.2); Total Iron Binding Capacity 245 mcg/dl; Total Protein 6.1 g/dL (6.6-8.7); Unsaturated Iron Binding 211 ug/dL (112-347)
[2023-01-28 00:52] LABS: Add Urine Microscopic? NO; Charge for UA Resulting for Rev
[2023-01-28 01:08] LABS: Bilirubin Urine Neg (Negative); Blood Urine Neg (Negative); Glucose Urine UA Norm (Normal); Ketones Urine 1+ (Negative); Leukocyte Esterase Urine Negative (Negative); Nitrate Urine Negative (Negative); Protein Urine Neg (Negative); Urine Appearance Clear (CLEAR); Urine Color Yellow (Yellow); Urobilinogen Urine Neg (Negative); pH Urine 7 (5-7)
[2023-01-28] MEDS: metoprolol tartrate 25 mg Tablet PO (01:09)
[2023-01-28] MEDS: TRAMadol 50 mg Tablet 25 MG PO (01:09)
--- NOTE | 2023-01-28 01:17 | ECG_ITS ---
[facility] Test Date: 2023-01-28 Pat Name: Luly Castro Department: Room: 106 Gender: Female Hansard Reporter: : 1945 Requested By: Michelle Penn Order Number: [id number] Elvis MD: Christy Estes M.D. Measurements Intervals [place] Rate: 99 P: 0 MI: 0 QRS: 20 QRSD: 86 T: 32 QT: 356 QTc: 458 Interpretive Statements ATRIAL FIBRILLATION VOLTAGE CRITERIA FOR LVH [MEETS CRITERIA IN ONE OF: R(aVL), S(V1), R(V5), R(V5/V6)+S(V1)] NONSPECIFIC T-WAVE ABNORMALITY Compared to ECG 01/27/2023 22:34:04 No significant changes Electronically Signed On 01-28-2023 4:17:18 CDT by Christy Estes M.D. [id number]
[2023-01-28 02:29] LABS: Basophils # 0.1 10^3/uL (0.0-0.1); Basophils % 0.9 %; Eosinophils # 0.1 10^3/uL (0.0-0.8); Eosinophils % 1.6 %; Hematocrit 30.6 % (37.0-47.0); Hemoglobin 9.3 g/dL (11.5-15.3); Lymphocytes # 1.1 10^3/uL (0.8-4.8); Lymphocytes % 13.4 %; Mean Corpuscular HGB Conc 30.4 g/dL (30.0-36.0); Mean Platelet Volume 11.5 fL (7.4-10.4); Monocytes # 1.1 10^3/uL (0.2-0.9); Neutrophils # 5.09 10^3/uL (1.8-7.7); Neutrophils % 62.1 %; Nucleated Red Blood Cells % 0 %; Platelet Count 248 10^3/cmm (130-400); Red Cell Distribution Width 14.3 % (12.1-15.1); White Blood Count 8.2 10^3/uL (4.0-10.0)
[2023-01-28 02:45] LABS: Troponin 5 2HR 34.07 ng/L (0-10); Troponin 5 2HR Delta 0.07 ABS# (0-10)
[2023-01-28 02:47] LABS: Alanine Aminotransferase 18 U/L (0-33); Albumin Level 3.4 g/dL (3.5-5.2); Alkaline Phosphatase 167 U/L (35-105); Blood Urea Nitrogen 19 mg/dL (8-23); Calcium 8.8 mg/dL (8.5-10.5); Carbon Dioxide 28 mmol/L (22-29); Chloride 103 mmol/L (98-107); Globulin 2.5 g/dL (1.3-4.6); Glucose 135 mg/dL (65-115); Osmolality Calculated 296 mOsm/kg (285-295); Sodium 141 mmol/L (136-145); Total Bilirubin 0.2 mg/dL (0.15-1.2); Total Protein 5.9 g/dL (6.6-8.7)
[2023-01-28 02:50] LABS: Anion Gap 14.2 (5-19); Aspartate Amino Transferase 26 U/L (0-32); Potassium 4.2 mmol/L (3.5-5.1)
[2023-01-28 02:58] LABS: Slide Review Slide Review Perform
[2023-01-28 07:07] LABS: Troponin 5 6HR 28.95 ng/L (0-10)
[2023-01-28 07:10] LABS: Troponin 5 6HR Delta -5.05 ng/L (0-12)
[2023-01-28] MEDS: carbidopa-levodopa 25-100mg Tablet 1 EACH PO ×3 (07:53→17:49)
--- NOTE | 2023-01-28 09:00 | PC.CHAP ---
Pastoral Care Encounter/Spiritual Assessment Type of Contact [] Declined cutter and presser visit [] Patient/Family/Request visit [] Outpatient visit [] Follow-up visit [] Physician referral [] Code/Alert [x] Routine visit [] Staff referral [] Actively dying [] Patient sleeping [] Family support [] [] Out of room [] Palliative care [] [] Receiving care in room [] Pre-surgical visit [] Trauma [] Long length of stay [] ICU visit [] Other: Relational/Emotional Strength [x] Patient feels connected with others/family/visitors/staff [] Distress [] Loneliness/isolation [] Abandonment Spirituality of Patient [x] Person of Avani [x] Attends Yazidism of their Avani [x] Believes in Prayer [x] Reads Bible or Mosque materials [] There are Spiritual issues to be addressed Senior Telecommunications Specialist Interventions [x] Prayer [x] Active listening [] Non-anxious presence [x] Spiritual/emotional support [] Crisis/trauma care [] Spiritual counseling [] Bereavement support [] Provided bereavement packet [] Provided Bible/devotional materials [] Provided toy/stuffed animal, coloring book to patient or family member [] Provided Communion [] Anointing/[place] [] Salvation [x] Completed spiritual assessment [] Other: Impact on Illness or Injury [] Angry [] Fearful [] Anxious [] Often cries [] Exhaustion [] Unable to work [] Unable to attend amish [] Unable to walk/stand [] Unable to read [] Unable to drive [] Unable to eat/drink [] Unable to sleep [] Unable to be with family [] Patient intubated [] Other: Summary Time spent with patient 10 min
[2023-01-28] MEDS: carvedilol 25 mg Tablet PO ×2 (10:43→19:49)
--- NOTE | 2023-01-28 15:35 | PM.PN ---
Subjective Subjective: Patient was seen and examined this morning, continued to be in A-fib with heart rate in 110-120s Denied any chest pain, shortness of breath. Medications: Medication Review Details: Generic Name Dose Route Start Last Admin Trade Name Mary PRN Reason Stop Dose Admin Carbidopa/Levodopa 1 each 01/28/23 08:15 01/28/23 12:32 Carbidopa-Levodo pa 25-100mg Tablet PO 1 each TID@0815,1215,161 5 MARCIO Administration Carvedilol 25 mg 01/28/23 07:00 01/28/23 10:43 Carvedilol 25 Mg Tablet PO 25 mg BID@07,19 MARCIO Administration Sodium Chloride 1,000 mls @ 75 ml s/hr 01/27/23 22:30 01/28/23 10:41 Sodium Chloride 0.9% IV 0 mls/hr .[id number] MARCIO Infusion Vitals/I&O/Wt Last Vital Signs Temp 98.9 F 01/28/23 11:30 Pulse 97 01/28/23 14:00 Resp 17 01/28/23 11:30 BP 161/97 01/28/23 11:30 Pulse Ox 99 01/28/23 11:30 O2 Del Method Room Air 01/28/23 11:30 01/28/23 01/28/23 01/28/23 06:59 14:59 22:59 Intake Total 1135 / 1135 Output Total 200 / 500 300 / 300 Balance -200 / -500 835 / 835 Weight last 48 hrs Weight 60.6 kg Physical Exam Const: COMMON NORMALS: patient oriented x3 HENMT: COMMON NORMALS: normocephalic and atraumatic HEAD & SCALP: normocephalic and atraumatic Resp: COMMON NORMALS: clear to auscultation bilaterally AUSCULTATION: clear to auscultation bilaterally Cardio: OTHER: Irregularly irregular rhythm S1-S2 variable intensity GI: COMMON NORMALS: Normal to inspection, nondistended, normoactive bowel sounds present, Soft to palpation, non-tender, No hepatosplenomegaly present and no masses AUSCULTATION: Yes normoactive bowel sounds PALPATION: Yes Soft to palpation and Yes No hepatosplenomegaly present RECTAL EXAM: deferred Extremity: COMMON NORMALS: no clubbing, cyanosis or edema and no pedal edema Neuro: COMMON NORMALS: patient oriented x3 Data 01/28/23 02:15 01/28/23 02:15 A&P Assessment and plan (1) 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 (2) Syncope and collapse: (3) Unstable right knee: (4) Atrial fibrillation: (5) Primary osteoarthritis of right knee: (6) Parkinson disease: (7) HTN (hypertension): Qualifiers: Hypertension type: essential hypertension Qualified Code(s): I10 - Essential (primary) hypertension (8) Peripheral neuropathy: (9) Anemia: Plan 77-year-old female with past medical history of Parkinson's, HTN, peripheral neuropathy who underwent right knee total arthroplasty for severe osteoarthritis of the right knee on December 24, 2022, status post recent right knee revision surgery, was discharged yesterday from hospital, was readmitted last night after she [facility], when she arrived here she was found to be in A-fib with RVR, she has no prior history of A-fib. Currently she is being managed for. Assessment: Newly diagnosed A-fib with RVR: 2D echo: LV systolic function is normal with EF 55-60%,Left atrial dilation,Mild mitral regurgitation,Trace aortic regurgitation,?Mild tricuspid regurgitation. CTA chest: Negative for pulmonary embolism, suggestive of pulmonary vascular congestion. Lower extremity Doppler negative for DVT TSH: 2.30 Currently on carvedilol 25 mg p.o. twice daily, heart rate is getting better controlled [id number] score of 4, patient qualifies for anticoagulation, discussed the risk and benefit of it. Continue aspirin 81 mg p.o. daily for now. Syncope: Could be possibly secondary to arrhythmia. Monitor Orthostatic vital signs: Could be a possibility given her autonomic dysfunction due to underlying Parkinson disease. CTA chest has ruled out PE Continue telemetry monitoring for now History of Parkinson's: Continue Sinemet History of hypertension: Enalapril currently on hold Continue carvedilol Monitor blood pressure for now. Anemia: Monitor H&H for now Anemia panel: Result appreciated FOBT pending Full code DVT prophylaxis on SCDs and subacute Lovenox Attestations Medical Necessity Statement*: Patient needs to be in hospital for management of A-fib with RVR. 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
[2023-01-28] MEDS: enoxaparin 40 mg/0.4 mL Syringe SUBCUT (17:49)
[2023-01-28] MEDS: dilTIAZem 5 mg/mL SDV 5 mL 10 MG IVP (18:11)
--- NOTE | 2023-01-28 22:21 | USCV_ITS ---
Luly Castro Age: 77 Gender: F : 1945 Exam Date: 01/28/2023 08:55 Ordering Phys: Michelle Penn MD Technologist: CT Exam Location: [facility] – [place] Indication: a fib BP: 152 / 108 HR: 91 Rhythm: Atrial fibrillation Technical Quality: Adequate MEASUREMENTS (Male / Female) Normal Values 2D ECHO LV Diastolic Diameter PLAX 3.9 cm 4.2 - 5.9 / 3.9 - 5.3 cm LV Systolic Diameter PLAX 2.9 cm IVS Diastolic Thickness 1.4 cm 0.6 - 1.0 / 0.6 - 0.9 cm IVS Systolic Thickness 1.7 cm LVPW Diastolic Thickness 1.2 cm 0.6 - 1.0 / 0.6 - 0.9 cm LVPW Systolic Thickness 2.0 cm LVOT Diameter 2.0 cm LV Ejection Fraction 2D Teich 39.8 % LV Ejection Fraction MOD 2C 49.3 % LV Ejection Fraction 2C AL 49.8 % LA Diameter 4.3 cm Aorta at Sinotubular Diameter 2.4 cm IVC Diameter 2.0 cm M-MODE Aortic Annulus Diameter 2.9 cm LA Ao Ratio MM 1.4 MV E Point Septal Separation 0.6 cm DOPPLER AV Peak Velocity 142.0 cm/s LVOT Peak Velocity 75.0 cm/s AV Area Cont Eq vti 2.0 cm squared AV Area Cont Eq pk 1.6 cm squared MV Peak Velocity 127.0 cm/s MV Area PHT 3.9 cm squared Mitral E to A Ratio 37.2 MV E' Velocity 64.0 cm/s Mitral E to MV E' Ratio 9.4 Mitral E to LV E' Lateral Ratio 9.0 Mitral E to LV E' Septal Ratio 9.9 TR Peak Velocity 92.0 cm/s TR Peak Gradient 3.4 mmHg TV Peak E Velocity 83.0 cm/s Right Atrial Pressure 3.0 mmHg Pulmonary Artery Systolic Pressu 6.4 mmHg PV Peak Velocity 90.0 cm/s FINDINGS Left Ventricle Left ventricle is normal in size. LV systolic function is normal with EF 55-60%. No regional wall motion abnormalities are seen. Diastolic function is indeterminate because of atrial fibrillation. Right Ventricle Normal in size and function Right Atrium Normal in size Left Atrium Dilated Mitral Valve Structurally normal mitral valve. Mild mitral regurgitation. Aortic Valve Structurally normal aortic valve. No significant stenosis. Trace aortic regurgitation. Tricuspid Valve Mild tricuspid regurgitation. Insufficient TR jet to calculate RVSP. Pulmonic Valve Not well visualized Pericardium Normal Aorta Normal in size IVC Appears to be normal CONCLUSIONS LV systolic function is normal with EF 55-60% Diastolic function is indeterminate because of atrial fibrillation. Left atrial dilation Mild mitral regurgitation Trace aortic regurgitation Mild tricuspid regurgitation Compared to prior echo from 2021,no significant changes are seen Morteza Bardales MD (Electronically Signed) Final Date: 28 January 2023 14:55 S
--- NOTE | 2023-01-28 23:09 | USCV_ITS ---
Luly Castro Age: 77 Gender: F : 1945 Exam Date: 01/28/2023 03:41 Ordering Phys: Michelle Penn MD Technologist: FAVIAN Exam Location: [facility] – [place] Indication: pain RIGHT knee s/p 2 RIGHT knee replacement surgeries in the last few months. No history of DVT per patient. HISTORY: pain RIGHT knee s/p 2 RIGHT knee replacement surgeries in the last few months. No history of DVT per patient. PROCEDURES: Venous duplex imaging was performed in bilateral lower extremities. The following venous structures were evaluated: common femoral vein, profunda vein, proximal portion of the greater saphenous vein, superficial femoral vein, and the popliteal vein. In addition, the posterior tibial veins were evaluated. Serial compression, augmentation maneuvers, and spectral Doppler flow evaluation were performed, which were normal. Bilaterally, the common femoral, superficial femoral, profunda femoral, popliteal, posterior tibial, and greater saphenous veins were identified and interrogated in the standard fashion. These veins were found to be easily compressible with spontaneous blood flow. No evidence of thrombus noted. CONCLUSIONS No evidence of right lower extremity DVT. No evidence of left lower extremity DVT. Gigi Christine MD (Electronically Signed) Final Date: 28 January 2023 09:11 S
[2023-01-29] VITALS (7 sets, daily range): BP systolic 114–168; BP diastolic 56–94; PULSE 70–98; RESP 13–19; TEMP 36.5–36.7; O2SAT 99–100
[2023-01-29 04:19] LABS: Hemoglobin 8.7 g/dL (11.5-15.3); Mean Corpuscular HGB Conc 31.1 g/dL (30.0-36.0); Mean Corpuscular Hemoglobin 31.9 pg (28.0-34.0); Mean Corpuscular Volume 102.6 fl (81-99); Mean Platelet Volume 11.3 fL (7.4-10.4); Platelet Count 258 10^3/cmm (130-400); Red Blood Count 2.73 10^6/uL (4.1-5.3); Red Cell Distribution Width 14.4 % (12.1-15.1)
[2023-01-29 04:34] LABS: Alanine Aminotransferase 9 U/L (0-33); Alkaline Phosphatase 153 U/L (35-105); Anion Gap 11.8 (5-19); Aspartate Amino Transferase 18 U/L (0-32); Blood Urea Nitrogen 22 mg/dL (8-23); Calcium 8.8 mg/dL (8.5-10.5); Carbon Dioxide 27 mmol/L (22-29); Chloride 105 mmol/L (98-107); Globulin 2.6 g/dL (1.3-4.6); Glucose 106 mg/dL (65-115); Osmolality Calculated 294 mOsm/kg (285-295); Potassium 3.8 mmol/L (3.5-5.1); Sodium 140 mmol/L (136-145); Total Bilirubin 0.2 mg/dL (0.15-1.2); Total Protein 5.6 g/dL (6.6-8.7)
[2023-01-29 04:58] LABS: Slide Review Slide Review Perform
[2023-01-29 04:59] LABS: Absolute Segmented Neutrophil 4.2 10/cmm (1.6-7.1); Eosinophils 1 %; Lymphocytes 15 %; Platelet Estimate Normal (Normal); Segmented Neutrophils 60 %; Total Cells Counted 100 (0-100)
[2023-01-29] MEDS: carvedilol 25 mg Tablet PO (06:31)
[2023-01-29] MEDS: lisinopril 20 mg Tablet PO (06:32)
[2023-01-29] MEDS: carbidopa-levodopa 25-100mg Tablet 1 EACH PO ×2 (08:33→11:28)
[2023-01-29] MEDS: aspirin 81 mg EC Tablet PO (08:33)
--- NOTE | 2023-01-29 10:50 | P.DS_ITS ---
Discharge Providers Date of Admission: 01/27/23 21:27 Date of Discharge: January 29, 2023 Attending Provider at Admission: Michelle Penn MD Attending Provider at Discharge: Freddy Thorpe MD Primary Care Provider: BRETT Perry Diagnoses at Discharge Discharge Diagnosis (1) 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 Patellar deformity with osteophytes superiorly nearly as large as the patella. Large loose body which was removed as well Procedure done: Right total knee arthroplasty with Marty guidance Implants: The Lessno total knee system with a size 4 triathlon beaded cruciate retaining femur right, a triathlon titanium tibial component size 4 beaded, a triathlon X3 tibial bearing CS insert size 4 X 14 mm and a beaded triathlon titanium asymmetric patella size 35 x 10 mm (2) Syncope and collapse: Status: Acute (3) Unstable right knee: Status: Acute (4) Atrial fibrillation: Status: Acute (5) Primary osteoarthritis of right knee: Status: Acute (6) Parkinson disease: Status: Acute (7) HTN (hypertension): Status: Acute Qualifiers: Hypertension type: essential hypertension Qualified Code(s): I10 - Essential (primary) hypertension (8) Peripheral neuropathy: Status: Acute (9) Anemia: Status: Acute Reason for Visit Reason for Visit: A Fib Hospital Course Hospital Course 77-year-old female with past medical history of Parkinson's, HTN, peripheral neuropathy who underwent right knee total arthroplasty for severe osteoarthritis of the right knee on December 24, 2022, status post recent right knee revision surgery, was discharged yesterday from hospital, was readmitted last night after she experienced syncopal episode at the [place] [facility], when she arrived here she was found to be in A-fib with RVR, she has no prior history of A-fib.During the hospital stay she was managed for newly diagnosed A-fib with RVR: 2D echo:?LV systolic function is normal with EF 55-60%,Left atrial dilation,Mild mitral regurgitation,Trace aortic regurgitation,?Mild tricuspid regurgitation.CTA chest: Negative for pulmonary embolism, suggestive of pulmonary vascular congestion. Lower extremity Doppler negative for DVT ,TSH: 2.30. She was initially continued on carvedilol 25 mg p.o. twice daily, which happens to be her home medication also, later carvedilol dose was discharged to 37.5 milligram p.o. in the morning and 25 mg p.o. in the evening, for better heart rate control, she did converted to sinus rhythm at the time of discharge, she was started on Eliquis 5 mg p.o. twice daily , her [id number] score is 4 : Syncope could be possibly secondary to, underlying anemia, possible orthostatic hypotension, in the setting of autonomic dysfunction, in the setting of Parkinson's disease, she was continued to be managed for her other comorbid conditions, patient overall responded well to medical management and was discharged in stable condition to intermediate. Physical Exam Const: COMMON NORMALS: patient oriented x3 HENMT: COMMON NORMALS: normocephalic and atraumatic HEAD & SCALP: normocephalic and atraumatic Resp: COMMON NORMALS: clear to auscultation bilaterally AUSCULTATION: clear to auscultation bilaterally Cardio: OTHER: S1-S2 of normal intensity, no murmur rub gallop. GI: COMMON NORMALS: Normal to inspection, nondistended, normoactive bowel sounds present, Soft to palpation, non-tender, No hepatosplenomegaly present and no masses AUSCULTATION: Yes normoactive bowel sounds PALPATION: Yes Soft to palpation and Yes No hepatosplenomegaly present RECTAL EXAM: deferred Extremity: COMMON NORMALS: no clubbing, cyanosis or edema and no pedal edema Neuro: COMMON NORMALS: patient oriented x3 Discharge Data Studies Completed and Pending Completed Studies During Hospitalization Category Date Time Status CTA PE [CT angio chest PE protcl [id number]] Stat Cat Scan 01/27/23 22:16 [place] [id number] Urgent Ultrasound 01/28/23 23:09 Completed CV. echo complete* [id number] Routine Ultrasound 01/28/23 22:21 Completed Pending at discharge Category Date Time Status CBC Auto Diff [Complete Blood Count w/Auto] AM LABS Lab 01/30/23 04:00 Ordered CBC Auto Diff [Complete Blood Count w/Auto] AM LABS Lab 01/31/23 04:00 Ordered CMP [Comprehensive Metabolic Panel] AM LABS Lab 01/30/23 04:00 Ordered CMP [Comprehensive Metabolic Panel] AM LABS Lab 01/31/23 04:00 Ordered Occult Blood Stool [Immunochemical Fecal OCB] Routine Lab 01/27/23 23:09 Uncollected Radiology Impressions Chest CTA 01/27/23 22:16 IMPRESSION: 1. No PE. 2. Large heart with mild evidence of CHF or positive fluid balance with lung base atelectasis, edema, or airspace disease with small bilateral pleural effusions. Recommend three-month follow-up. 3. Lung scarring, COPD, and other chronic findings above. Laboratory Results WBC 7.0 10^3/uL (4.0-10.0) 01/29/23 03:39 RBC 2.73 10^6/uL (4.1-5.3) L 01/29/23 03:39 Hgb 8.7 g/dL (11.5-15.3) L 01/29/23 03:39 Hct 28.0 % (37.0-47.0) L 01/29/23 03:39 MCV 102.6 fl (81-99) H 01/29/23 03:39 MCH 31.9 pg (28.0-34.0) 01/29/23 03:39 MCHC 31.1 g/dL (30.0-36.0) 01/29/23 03:39 RDW 14.4 % (12.1-15.1) 01/29/23 03:39 Plt Count 258 10^3/cmm (130-400) 01/29/23 03:39 MPV 11.3 fL (7.4-10.4) H 01/29/23 03:39 Neut % (Auto) 62.1 % 01/28/23 02:15 Lymph % (Auto) Not Reportable 01/29/23 03:39 Granite % (Auto) Not Reportable 01/29/23 03:39 Eos % (Auto) 1.6 % 01/28/23 02:15 Baso % (Auto) 0.9 % 01/28/23 02:15 Neut # (Auto) 5.09 10^3/uL (1.8-7.7) 01/28/23 02:15 Lymph # (Auto) Not Reportable 01/29/23 03:39 Granite # (Auto) Not Reportable 01/29/23 03:39 Eos # (Auto) 0.1 10^3/uL (0.0-0.8) 01/28/23 02:15 Baso # (Auto) 0.1 10^3/uL (0.0-0.1) 01/28/23 02:15 Nucleated RBC % (auto) 0 % 01/28/23 02:15 Total Counted 100 (0-100) 01/29/23 03:39 Atypical Lymphs % Not Reportable 01/29/23 03:39 Segmented Neutrophils 60 % 01/29/23 03:39 Abs Segm Neuts (Man) 4.2 10/cmm (1.6-7.1) 01/29/23 03:39 Band Neutrophils Not Reportable 01/29/23 03:39 Lymphocytes (Manual) 15 % 01/29/23 03:39 Monocytes (Manual) 14.0 % 01/29/23 03:39 Absolute Monocytes 1.0 10^3/cmm (0.1-0.6) H 01/29/23 03:39 Eosinophils (Manual) 1 % 01/29/23 03:39 Absolute Eosinophils 0.0 10^3/cmm (0.0-0.7) 01/29/23 03:39 Basophils (Manual) 0.0 % 01/29/23 03:39 Absolute Basophils 0.0 10^3/cmm (0.0-0.2) 01/29/23 03:39 Metamyelocytes 2.0 % 01/29/23 03:39 Myelocytes 8.0 % 01/29/23 03:39 Nucleated RBCs # 0.0 /100WBC 01/28/23 02:15 Platelet Estimate Normal (Normal) 01/29/23 03:39 Sodium 140 mmol/L (136-145) 01/29/23 03:39 Potassium 3.8 mmol/L (3.5-5.1) 01/29/23 03:39 Chloride 105 mmol/L (98-107) 01/29/23 03:39 Carbon Dioxide 27 mmol/L (22-29) 01/29/23 03:39 Anion Gap 11.8 (5-19) 01/29/23 03:39 BUN 22 mg/dL (8-23) 01/29/23 03:39 Creatinine 0.6 mg/dL (0.5-0.9) 01/29/23 03:39 GFR Calculation Not Reportable 01/29/23 03:39 Glucose 106 mg/dL (65-115) 01/29/23 03:39 Calculated Osmolality 294 mOsm/kg (285-295) 01/29/23 03:39 Calcium 8.8 mg/dL (8.5-10.5) 01/29/23 03:39 Magnesium 2.0 mg/dL (1.7-2.3) 01/29/23 03:39 Iron 34 ug/dL (37-145) L 01/27/23 23:45 TIBC 245 mcg/dl 01/27/23 23:45 % Saturation 13.8 % (20-50) L 01/27/23 23:45 Unsat Iron Binding 211 ug/dL (112-347) 01/27/23 23:45 Ferritin 764 ng/mL (15-150) H 01/27/23 23:45 Total Bilirubin 0.2 mg/dL (0.15-1.2) 01/29/23 03:39 AST 18 U/L (0-32) 01/29/23 03:39 ALT 9 U/L (0-33) 01/29/23 03:39 Alkaline Phosphatase 153 U/L (35-105) H 01/29/23 03:39 Troponin T Baseline 34 ng/L (0-10) H 01/27/23 23:45 Troponin T 120 Minute 34.07 ng/L (0-10) H 01/28/23 02:15 Delta Troponin T 0.07 ABS# (0-10) 01/28/23 02:15 Troponin T Hi Sens 6Hr 28.95 ng/L (0-10) H 01/28/23 06:30 Troponin T Hi Sens 6Hr Delta -5.05 ng/L (0-12) L 01/28/23 06:30 Total Protein 5.6 g/dL (6.6-8.7) L 01/29/23 03:39 Albumin 3.0 g/dL (3.5-5.2) L 01/29/23 03:39 Globulin 2.6 g/dL (1.3-4.6) 01/29/23 03:39 Procalcitonin 0.04 ng/mL (0-0.5) 01/27/23 23:45 TSH 2.30 uIU/mL (0.27-4.20) 01/27/23 23:45 Urine Color Yellow (Yellow) 01/28/23 00:44 Urine Appearance Clear (CLEAR) 01/28/23 00:44 Urine pH 7 (5-7) 01/28/23 00:44 Ur Specific [place] 1.010 (1.005-1.030) 01/28/23 00:44 Urine Protein Neg (Negative) 01/28/23 00:44 Urine Glucose (UA) Norm (Normal) 01/28/23 00:44 Urine Ketones 1+ (Negative) H 01/28/23 00:44 Urine Blood Neg (Negative) 01/28/23 00:44 Urine Nitrate Negative (Negative) 01/28/23 00:44 Urine Bilirubin Neg (Negative) 01/28/23 00:44 Urine Urobilinogen Neg mg/dL (Negative) 01/28/23 00:44 Ur Leukocyte Esterase Negative (Negative) 01/28/23 00:44 Vitals Last Vital Signs Temp 97.7 F 01/29/23 04:00 Pulse 98 01/29/23 08:00 Resp 16 01/29/23 08:00 BP 162/94 01/29/23 08:00 Pulse Ox 100 01/29/23 08:00 O2 Del Method Room Air 01/29/23 08:00 Discharge Plan Discharge Patient Disposition: Xfer SNF Condition: Stable Prescriptions: New Eliquis 5 mg tablet 5 mg PO BID 30 Days Qty: 60 3RF Continued acetaminophen [Tylenol Extra Strength] 500 mg tablet 500 mg PO BID Hold Instructions: Resume on 01/08/23. calcium carbonate-vitamin D3 [Calcium 600 with Vitamin D3] 600 mg(1,500mg) - 500 unit capsule 1 cap PO DAILY multivitamin Tablet 1 tab PO DAILY (DME) trapeze bar See Rx Instructions .Route .MEDSUPPLY Qty: 1 0RF Rx Instructions: Utilize as Directed enalapril maleate 10 mg tablet 10 mg PO BID@ carbidopa-levodopa 25-100 mg tablet 1 tab PO TID@0815,1215,1615 oxycodone 5 mg tablet 5 mg PO Q4H PRN (Reason: pain) 7 Days Qty: 30 0RF celecoxib 200 mg capsule 200 mg PO DAILY carvedilol 25 mg tablet 25 mg PO BID@07,19 30 Days Qty: 30 3RF Rx Instructions: Take 37.5 mg in the morning and 25 mg po daily in evening Discontinued aspirin 325 mg Tablet 325 mg PO DAILY Discharge Orders: Discharge Order (Routine); Ordered 01/29/23 Ordered By: Freddy Thorpe Referrals: [facility] [Outside] Patient Instructions: Apixaban (By mouth) (Eliquis), A-fib (Atrial Fibrillation) (DC), Syncope (DC), Opioid Safety Discharge Attestations Time Spent in Discharge Care*: greater than 30 min Quality Metrics Clinical Quality Measures [ No reported AMI, CVA or VTE this stay] Coding Level of Care Code Acute Code for Chg Fwd Diagnoses Status post total right knee replacement not using cement Z96.651 Syncope and collapse R55 Unstable right knee M25.361 Atrial fibrillation I48.91 Primary osteoarthritis of right knee M17.11 Parkinson disease G20 HTN (hypertension) I10 Hypertension type: essential hypertension Peripheral neuropathy G62.9 Anemia D64.9
[2023-01-29 11:40] LABS: SARS Covid-2 Antigen negative (Negative)
== END 2023-01-29 14:18 | disposition skilled nursing facility (03) | DRG 310 ==
PROVIDERS: Admitting Provider Internal Medicine; PCP Nurse Practitioner Family; Visit Provider Internal Medicine
DX: I48.91 Unspecified atrial fibrillation (principal); G20 Parkinson's disease; I10 Essential (primary) hypertension; G62.9 Polyneuropathy, unspecified; Z96.651 Presence of right artificial knee joint; I95.1 Orthostatic hypotension; D64.9 Anemia, unspecified; Z79.891 Long term (current) use of opiate analgesic; Z85.3 Personal history of malignant neoplasm of breast
CPT/HCPCS: 36415; 71275; 80053; 81003; 82728; 83540; 83550; 83735; 84145; 84443; 84484; 85007; 85025; 87426; 93005; 93306; 93970; 96372; 96376; G0379; J1644; J1650; J3490; J7030; Q9967

== ENCOUNTER → 2023-02-11 08:42 | Outpatient (BNVA) | payer OTHER, SELFPAY | PROVIDERS: PCP Nurse Practitioner Family; Visit Provider Specialist | DX: Z96.651 Presence of right artificial knee joint (principal); S72.431D Displaced fracture of medial condyle of right femur, subsequent encounter for closed fracture with routine healing; X58.XXXD Exposure to other specified factors, subsequent encounter | CPT/HCPCS: 73562; 99024 ==

== ENCOUNTER → 2023-03-09 09:50 | Outpatient (BNVA) | payer OTHER, SELFPAY | PROVIDERS: PCP Nurse Practitioner Family; Visit Provider Specialist | DX: Z96.651 Presence of right artificial knee joint (principal); S72.431 Displaced fracture of medial condyle of right femur; X58.XXXS Exposure to other specified factors, sequela | CPT/HCPCS: 73560; 73562; 73565; 99024 ==

== ENCOUNTER → 2023-05-11 15:48 | Outpatient (BNVA) | payer MEDICARE, OTHER, SELFPAY | PROVIDERS: PCP Nurse Practitioner Family; Visit Provider Nurse Practitioner | DX: Z96.651 Presence of right artificial knee joint (principal); S72.431D Displaced fracture of medial condyle of right femur, subsequent encounter for closed fracture with routine healing; X58.XXXD Exposure to other specified factors, subsequent encounter | CPT/HCPCS: 73562; 99213 ==

== ENCOUNTER → 2023-09-22 07:47 | Outpatient (BNVA) | payer MEDICARE, SELFPAY | PROVIDERS: PCP Nurse Practitioner Family; Visit Provider Specialist | DX: G20.A1 Parkinson's disease without dyskinesia, without mention of fluctuations (principal) | CPT/HCPCS: 99214 ==

== ENCOUNTER → 2023-10-19 09:56 | Outpatient (BNVA) | payer MEDICARE, SELFPAY | PROVIDERS: PCP Nurse Practitioner Family; Visit Provider Nurse Practitioner | DX: M23.41 Loose body in knee, right knee (principal); S72.431 Displaced fracture of medial condyle of right femur; X58.XXXS Exposure to other specified factors, sequela; Z96.651 Presence of right artificial knee joint | CPT/HCPCS: 73562; 99213 ==

== ENCOUNTER → 2024-02-15 10:35 | Outpatient (BNVA) | payer MEDICARE, SELFPAY | PROVIDERS: PCP Nurse Practitioner Family; Visit Provider Specialist | DX: Z96.651 Presence of right artificial knee joint (principal) | CPT/HCPCS: 73560; 73565 ==

== ENCOUNTER 2024-03-28 17:15 | Inpatient (IN) | payer MEDICARE, SELFPAY ==
[2024-03-28] VITALS (25 sets, daily range): BP systolic 116–172; BP diastolic 60–113; PULSE 55–97; RESP 16–43; TEMP 37.2–37.7; O2SAT 92–98
--- NOTE | 2024-03-28 17:41 | PC.NURSE ---
Patient arrived to unit at 1706 in stable condition via EMS. Dr Penn notified shortly after patients arrival. Patients belongings currently at beside, which include watch and medical alert bracelet.
--- NOTE | 2024-03-28 17:51 | P.HP_ITS ---
Providers/Chief Complaint Admitting Physician: Michelle Penn MD Primary Care Provider: BRETT Perry Chief Complaint: [facility] E Sepsis History of Present Illness Luly Castro is a 78 year old female ith past medical history of Parkinson's, HTN, peripheral neuropathy who underwent right knee total arthroplasty for severe osteoarthritis of the right knee on December 24, 2022, status post right knee revision surgery, afib on Pradaxa from [facility] went to [place] [facility] for low-grade fever and hypoxia, she was requiring 2 L of oxygen, her BNP was high she was given labetalol for systolic blood pressure around 200s, chest x-ray consistent with basilar congestion, CHF. 2 weeks ago she was diagnosed with COVID-19. At the time of evaluation patient is hemodynamically stable on 2 L, has a Lozano catheter, clinically does not look extremely fluid overloaded, she seems to have left-sided weakness, pupils are symmetrical, able to follow simple commands. I do not see any facial droop she does have rigidity of upper extremities. Patient is a poor historian. Chart reviewed from the outside facility She seems to have hematuria, 3+ bacteria without significant nitrates, no leukocytosis, hemoglobin creatinine within normal range Review of Systems General: Reports: ROS unobtainable due to medical condition Medications/Allergies Home Medications Medication Instructions Recorded Confirmed Last Taken Type acetaminophen 500 mg tablet 500 mg PO BID 12/26/19 02/15/24 01/22/23 History (Tylenol Extra Strength) calcium carbonate 600 mg-vitamin 1 cap PO DAILY 12/26/19 02/15/24 01/22/23 History D3 12.5 mcg (500 unit) capsule (Calcium 600 with Vitamin D3) multivitamin 1 tab PO DAILY 12/26/19 02/15/24 01/22/23 History trapeze bar #1 ea 10/08/21 02/15/24 Unknown Rx carbidopa 25 mg-levodopa 100 mg 1 tab PO TID@0815,1215,1615 12/23/22 02/15/24 01/22/23 History tablet carvedilol 25 mg tablet 25 mg PO BID@, 30 days #30 tabs 01/29/23 02/15/24 01/23/23 04:30 Rx acetaminophen 650 mg 650 mg PO Q12H 09/22/23 02/15/24 Unknown History tablet,extended release (Tylenol Arthritis Pain) dabigatran etexilate 150 mg 150 mg PO BID 09/22/23 02/15/24 Unknown History capsule (Pradaxa) bisacodyl 10 mg rectal suppository 10 mg WA DAILY PRN 10/19/23 02/15/24 Unknown History magnesium hydroxide 400 mg/5 mL 15 ml PO DAILY PRN 10/19/23 02/15/24 Unknown His tory oral suspension (Milk of Magnesia) polyethylene glycol 3350 17 4 g PO DAILY 10/19/23 02/15/24 Unknown History gram/dose oral powder (Miralax) pyrithione zinc 1 % shampoo 1 applic topical DAILY 10/19/23 02/15/24 Unknown History (Selsun Blue (pyrithione zinc)) sodium phosphates 19 gram-7 118 ml WA DAILY PRN 10/19/23 02/15/24 Unknown History gram/197 mL enema Allergies Allergy/AdvReac Type Severity Reaction Status Date / Time No Known Allergies Allergy Verified 02/15/24 11:24 PFSH Acute PFSH: Medical History Parkinson disease Anemia Atrial fibrillation Failure of total knee arthroplasty Primary osteoarthritis of right knee Syncope and collapse Unstable right knee Peripheral neuropathy Hammertoes of both feet HTN (hypertension) Surgical History Status post total right knee replacement not using cement Date of procedure: December 23, 2022 Diagnosis: Primary osteoarthritis right knee Post-op findings: Severe osteoarthritis with large osteophytes as well as significant flexion contracture (18 degrees) and varus deformities. Patellar deformity with osteophytes superiorly nearly as large as the patella. Large loose body which was removed as well Procedure done: Right total knee arthroplasty with Marty guidance Implants: The Allocadia total knee system with a size 4 triathlon beaded cruciate retaining femur right, a triathlon titanium tibial component size 4 beaded, a triathlon X3 tibial bearing CS insert size 4 X 14 mm and a beaded triathlon titanium asymmetric patella size 35 x 10 mm H/O mastectomy History of back surgery H/O ovarian cystectomy H/O total knee replacement Family History Mother CAD (coronary artery disease) Diabetes Father CAD (coronary artery disease) Diabetes Social History Smoking and tobacco/nicotine status: never used tobacco/nicotine Female Reproductive History: Spontaneous abortions: No Vitals/I&O/Wt Last Vital Signs O2 Del Method Nasal Cannula 03/28/24 17:30 Weight last 48 hrs Weight 62.5 kg Physical Exam Narrative: Senile female Currently on 2 L Bilateral breath sounds with rhonchi diminished breath sound at the base of the lungs bilaterally I do not hear any significant crackles or wheezing She is only able to answer simple questions in yes and no Looks very lethargic and fatigued Hypoventilating I do not see any focal deficits however she does have rigidity left greater than right side No pupillary asymmetry Lozano catheter in place Abdomen soft Pressure ulcer on the heel Redness around sacral area reported by the nursing staff A&P Assessment and plan (1) Acute respiratory failure with hypoxia: (2) New onset of congestive heart failure: (3) DNR (do not resuscitate): (4) Hypertensive urgency: Plan New onset CHF Will request echo Clinically does not look fluid overloaded High BNP noted on outside facility lab work I will give her Lasix 20 mg IV twice daily A-fib without RVR Continue Coreg and Pradaxa Reduce the dose of Pradaxa considering not calculable GFR History of Parkinson's She does have rigidity left greater than right Continue Sinemet Lozano catheter in place which should be removed before discharge Acute hypoxia related to CHF Anticipating improvement with diuresis Poor historian, she seems to have hematuria without significant leukocyte esterase but has 3+ bacteria Patient was given vancomycin and cefepime at the outside facility for low-grade fever She was diagnosed with COVID-19 2 weeks ago no need of isolation at this point DNR/DNI as per the records I will give her Levaquin for UTI Continue DuoNeb Continue Lasix Attestations Medical Necessity Statement*: More than 2 midnights anticipated Diagnoses Acute respiratory failure with hypoxia J96.01 New onset of congestive heart failure I50.9 DNR (do not resuscitate) Z66 Hypertensive urgency I16.0
[2024-03-28] MEDS: carvedilol 25 mg Tablet PO (18:25)
--- NOTE | 2024-03-28 19:41 | PC.NURSE ---
Spoke with regarding patient with dose of pradaxa 75mg due at 1800 but was not given as medication not available at this time in any Pyxis. Patients home dose of pradaxa is 150mg 2xday but was ordered as lower dose by due to not calculable GFR . Asked for orders regarding situation. ordered to resume patient home dose of Pradaxa 150mg BID.
[2024-03-28 20:10] LABS: Vitamin B12 654 pg/mL (232-1245)
[2024-03-28] MEDS: budesonide 0.5 mg/2 mL Neb INHALATION (20:12)
[2024-03-28] MEDS: FUROsemide 10 mg/mL SDV 2mL 20 MG IVP (20:37)
[2024-03-29] VITALS (18 sets, daily range): BP systolic 111–174; BP diastolic 56–106; PULSE 54–99; RESP 16–25; TEMP 36.3–37.1; O2SAT 92–99
--- NOTE | 2024-03-29 03:14 | PC.NURSE ---
Messaged . The patient is due for coreg 25mg at 7am. She has been bradycardic in the 50s throughout the night, dropping as low as 40s. It was continued as a home med but her med rec was completed and patient is no longer taking it at the half-way. Nurse concerned about giving the morning dose as the patients HR has been low and since the med is no longer something she takes. The patient has history of afib but is currently sinus [place]. Questioning if the med should be held in the morning. Dr. Alvarez said to hold the med for now.
[2024-03-29 03:51] LABS: Basophils % 0.6 %; Eosinophils % 0.6 %; Lymphocytes # 1.1 10^3/uL (0.8-4.8); Lymphocytes % 20.7 %; Mean Corpuscular HGB Conc 31.3 g/dL (30-55); Mean Corpuscular Hemoglobin 30.1 pg (27-33); Mean Corpuscular Volume 96.2 fl (85-98); Monocytes # 0.8 10^3/uL (0.2-0.9); Monocytes % 14.6 %; Neutrophils # 3.36 10^3/uL (1.8-7.7); Neutrophils % 62.8 %; Nucleated Red Blood Cells % 0 %; Platelet Count 206 10^3/cmm (157-399); Red Blood Count 3.95 10^6/uL (3.85-5.65); Red Cell Distribution Width 13.8 % (12.1-15.1); White Blood Count 5.35 10^3/uL (3.29-11.43)
[2024-03-29 04:15] LABS: Anion Gap 15.4 (5-19); Blood Urea Nitrogen 18 mg/dL (8-23); Calcium 8.4 mg/dL (8.5-10.5); Carbon Dioxide 27 mmol/L (22-29); Chloride 102 mmol/L (98-107); Creatinine Clr Calc Pharmacy 54.5325; Glucose 86 mg/dL (65-115); Magnesium 1.8 mg/dL (1.7-2.3); Osmolality Calculated 293 mOsm/kg (285-295); Potassium 3.4 mmol/L (3.5-5.1); Sodium 141 mmol/L (136-145)
[2024-03-29] MEDS: ipratropium-albuterol 3 mL Neb INHALATION (07:57)
[2024-03-29] MEDS: budesonide 0.5 mg/2 mL Neb INHALATION ×2 (07:57→22:33)
[2024-03-29] MEDS: FUROsemide 10 mg/mL SDV 2mL 20 MG IVP ×2 (08:36→20:06)
[2024-03-29] MEDS: potassium chloride ER 20 mEq Tablet PO (08:36)
[2024-03-29] MEDS: levoFLOXacin 750 mg Tablet PO (08:36)
[2024-03-29] MEDS: sennosides-docusate Tablet 1 TAB PO (08:36)
[2024-03-29] MEDS: polyethylene glycol 3350 Pkt 17 gm PO (08:38)
[2024-03-29] MEDS: carbidopa-levodopa 25-100mg Tablet 1 EACH PO ×3 (08:38→16:50)
--- NOTE | 2024-03-29 10:41 | PM.PN ---
Subjective Subjective: Labs reviewed potassium 3.4 she has p.o. regimen on board B12 within normal range Patient endorsing feeling better Weaning off oxygen Hypertensive Can transfer out of ICU to [facility] Afebrile Added Levaquin today Vitals/I&O/Wt Last Vital Signs Temp 98.7 F 03/29/24 04:00 Pulse 93 03/29/24 10:00 Resp 25 H 03/29/24 10:00 BP 155/106 03/29/24 10:00 Pulse Ox 93 03/29/24 10:00 O2 Del Method Nasal Cannula 03/29/24 07:35 O2 Flow Rate 1 03/29/24 07:35 03/28/24 03/29/24 03/29/24 22:59 06:59 14:59 Intake Total 50 / 50 Output Total 1500 / 1500 600 / 2100 Balance -1450 / -1450 -600 / -2050 Weight last 48 hrs Weight 59.511 kg Weight 62.5 kg Physical Exam Narrative: Does not have typical signs of fluid overload Lozano catheter in place On 1 L nasal cannula Hemodynamically stable with hypertension Afebrile No sign of meningitis History of Parkinson's with rigidity S1, S2 variable Abdomen soft Blanchable skin lesion bilateral heels Data 03/29/24 03:20 03/29/24 03:20 Micro: Microbiology 03/29/24 08:17 Blood Culture - Preliminary Blood SPECIMEN COLLECTED 03/29/24 08:19 Blood Culture - Preliminary Blood SPECIMEN COLLECTED A&P Assessment and plan (1) DNR (do not resuscitate): (2) Hypertensive urgency: (3) New onset of congestive heart failure: (4) Parkinson disease: Qualifiers: Dyskinesia presence: without dyskinesia Fluctuating manifestations: without fluctuating manifestations Qualified Code(s): G20.A1 - Parkinson's disease without dyskinesia, without mention of fluctuations (5) Acute respiratory failure with hypoxia: Plan Diastolic CHF exacerbation Continue diuresis COVID 19 2 weeks ago No fever in last 18 hours Continue levofloxacin Hypoxia related to CHF wean off oxygen to room air Parkinson's: Continue carbidopa levodopa/Sinemet History of A-fib takes Pradaxa and Coreg DNR/DNI No signs of aspiration continue cardiac diet Transfer out of ICU to [facility] If remains afebrile I might be able to discharge her back to the nursing facility by Lozano catheter can be removed before discharge as well Hypokalemia: Potassium scheduled p.o. replenishment with diuresis Attestations Medical Necessity Statement*: Transfer out of ICU today Diagnoses DNR (do not resuscitate) Z66 Hypertensive urgency I16.0 New onset of congestive heart failure I50.9 Parkinson's disease without dyskinesia or fluctuating manifestations G20.A1 Dyskinesia presence: without dyskinesia Fluctuating manifestations: without fluctuating manifestations Acute respiratory failure with hypoxia J96.01
--- NOTE | 2024-03-29 12:26 | PC.NURSE ---
Patient transferred to med/surg from ICU at 1215.
[2024-03-29 13:50] LABS: D Dimer 1.59 ug/mLFEU (0-0.59)
[2024-03-29] MEDS: carvedilol 25 mg Tablet PO (18:50)
--- NOTE | 2024-03-29 21:16 | ECG_ITS ---
[facility] Test Date: 2024-03-29 Pat Name: Luly Castro Department: Room: 256 Gender: Female Round Cutter Operator: : 1945 Requested By: Quentin Alvarez Order Number: [id number] Elvis MD: Sourav Jama M.D. Measurements Intervals [place] Rate: 89 P: 45 LA: 184 QRS: -6 QRSD: 91 T: 1 QT: 433 QTc: 528 Interpretive Statements SINUS RHYTHM VOLTAGE CRITERIA FOR LVH [MEETS CRITERIA IN ONE OF: R(aVL), S(V1), R(V5), R(V5/V6)+S(V1)] NONSPECIFIC T-WAVE ABNORMALITY PROLONGED QT INTERVAL Compared to ECG 01/28/2023 01:17:29 Prolonged QT interval now present Atrial fibrillation no longer present T-wave abnormality still present Electronically Signed On 03-30-2024 17:34:16 CDT by Sourav Jama M.D. [email or web address].[email or web address] [place]/store/[id number]
[2024-03-29] MEDS: acetaminophen 500 mg Tablet PO (22:10)
[2024-03-29 22:50] LABS: Troponin(5th) Baseline 46 ng/L (0-10)
--- NOTE | 2024-03-29 23:37 | ECG_ITS ---
[facility] Test Date: 2024-03-30 Pat Name: Luly Castro Department: Room: 256 Gender: Female Ict Help Desk Technician: : 1945 Requested By: Rogerio Mckenna Order Number: [id number] Elvis MD: Sourav Jama M.D. Measurements Intervals [place] Rate: 90 P: 48 DC: 176 QRS: 5 QRSD: 93 T: -29 QT: 446 QTc: 548 Interpretive Statements SINUS RHYTHM POSSIBLE LEFT ATRIAL ENLARGEMENT [-0.1mV P-WAVE IN V1/V2] POSSIBLE LEFT VENTRICULAR HYPERTROPHY [VOLTAGE CRITERIA PLUS LAE OR QRS WIDENING] NONSPECIFIC T-WAVE ABNORMALITY PROLONGED QT INTERVAL Compared to ECG 03/29/2024 21:23:47 No significant changes Electronically Signed On 03-30-2024 17:41:26 CDT by Sourav Jama M.D. [email or web address]/store/[id number]
[2024-03-30] VITALS (8 sets, daily range): BP systolic 111–154; BP diastolic 65–93; PULSE 65–94; RESP 14–18; TEMP 36.4–37; O2SAT 93–98
[2024-03-30 01:34] LABS: Troponin 5 2HR 44.49 ng/L (0-10)
[2024-03-30 01:49] LABS: Troponin 5 2HR Delta -1.51 ABS# (0-10)
--- NOTE | 2024-03-30 03:31 | ECG_ITS ---
[facility] Test Date: 2024-03-30 Pat Name: Luly Castro Department: Room: 256 Gender: Female Central Processing Tech: : 1945 Requested By: Rogerio Mckenna Order Number: [id number] Elvis MD: Sourav Jama M.D. Measurements Intervals [place] Rate: 65 P: 60 AK: 154 QRS: -1 QRSD: 94 T: -49 QT: 453 QTc: 474 Interpretive Statements SINUS RHYTHM POSSIBLE LEFT ATRIAL ENLARGEMENT [-0.1mV P-WAVE IN V1/V2] POSSIBLE LEFT VENTRICULAR HYPERTROPHY [VOLTAGE CRITERIA PLUS LAE OR QRS WIDENING] NONSPECIFIC T-WAVE ABNORMALITY Compared to ECG 03/30/2024 01:46:42 Prolonged QT interval no longer present T-wave abnormality still present Electronically Signed On 03-30-2024 17:42:33 CDT by Sourav Jama M.D. [email or web address] NetworkFloTimeket[facility].[employer]/store/[id number]
[2024-03-30 04:40] LABS: Basophils % 0.7 %; Eosinophils % 0.5 %; Hematocrit 43.4 % (36-47); Lymphocytes # 0.8 10^3/uL (0.8-4.8); Mean Corpuscular HGB Conc 31.6 g/dL (30-55); Mean Corpuscular Hemoglobin 30.8 pg (27-33); Mean Corpuscular Volume 97.5 fl (85-98); Mean Platelet Volume 12.1 fL (7.4-10.4); Monocytes # 0.8 10^3/uL (0.2-0.9); Neutrophils # 4.42 10^3/uL (1.8-7.7); Nucleated Red Blood Cells % 0 %; Platelet Count 213 10^3/cmm (157-399); Red Blood Count 4.45 10^6/uL (3.85-5.65); Red Cell Distribution Width 13.5 % (12.1-15.1); White Blood Count 6.14 10^3/uL (3.29-11.43)
[2024-03-30 05:01] LABS: Anion Gap 16.5 (5-19); Blood Urea Nitrogen 21 mg/dL (8-23); Calcium 8.7 mg/dL (8.5-10.5); Carbon Dioxide 25 mmol/L (22-29); Chloride 101 mmol/L (98-107); Creatinine Clr Calc Pharmacy 53.4563; Glucose 107 mg/dL (65-115); Osmolality Calculated 291 mOsm/kg (285-295); Potassium 3.5 mmol/L (3.5-5.1); Sodium 139 mmol/L (136-145)
[2024-03-30] MEDS: levoFLOXacin 750 mg Tablet PO (06:00)
[2024-03-30] MEDS: carvedilol 25 mg Tablet PO (06:01)
[2024-03-30] MEDS: budesonide 0.5 mg/2 mL Neb INHALATION (07:52)
[2024-03-30] MEDS: FUROsemide 10 mg/mL SDV 2mL 20 MG IVP (08:59)
[2024-03-30] MEDS: sennosides-docusate Tablet 1 TAB PO (08:59)
[2024-03-30] MEDS: potassium chloride ER 20 mEq Tablet PO (09:00)
[2024-03-30] MEDS: carbidopa-levodopa 25-100mg Tablet 1 EACH PO ×2 (09:00→14:32)
[2024-03-30] MEDS: polyethylene glycol 3350 Pkt 17 gm PO (09:04)
--- NOTE | 2024-03-30 10:04 | PM.DCS ---
Discharge Providers Date of Admission: 03/28/24 17:15 Date of Discharge: March 30, 2024 Attending Provider at Admission: Michelle Penn MD Attending Provider at Discharge: Rogerio Mckenna MD Primary Care Provider: BRETT Perry Diagnoses at Discharge Discharge Diagnosis (1) DNR (do not resuscitate): Status: Acute (2) Hypertensive urgency: Status: Acute (3) New onset of congestive heart failure: Status: Acute (4) Parkinson disease: Status: Acute Qualifiers: Dyskinesia presence: without dyskinesia Fluctuating manifestations: without fluctuating manifestations Qualified Code(s): G20.A1 - Parkinson's disease without dyskinesia, without mention of fluctuations (5) Acute respiratory failure with hypoxia: Status: Acute Reason for Visit Reason for Visit: [facility] Christopher Sepsis Hospital Course Hospital Course 78-year-old female with history of Parkinson's, A-fib, takes Pradaxa, bedbound related to worsening of functional capacity, [facility], presented to our hospital for concern related to diastolic CHF exacerbation, she was given vancomycin and cefepime at the outside facility [facility] however she remained afebrile, patient had COVID-19 diagnosis made 2 weeks ago before her arrival, she was on 2 to 3 L of oxygen in the ICU which was gradually weaned off with use of Lasix. Clinically patient did not look fluid overloaded, her p.o. intake is severely compromised, we did not see any focal deficits she does have rigidity of extremities but able to move them on verbal command, her fluency of speech has been affected she is not suffering from sensory or expressive aphasia. I do believe her symptoms are related to worsening of her underlying Parkinson's. She will be discharged back to the facility with instructions to use level 6 dysphagia diet which was recommended by speech therapist. I will recommend Lasix with potassium only on as-needed basis. She is at risk of aspiration pneumonia as well. I have also asked for hospice referral at the time of discharge. I have spoken with her daughter who is in agreement with the plan. Patient and daughter both are in agreement with leaving Lozano catheter for comfort at the time of discharge. correction should be able to change it every 3 to 4 weeks. Patient is DNR/DNI Physical Exam Narrative: Masked facies Hemodynamically stable Currently on room air Clinically does not look fluid overloaded S1, S2 variable no signs of RVR Abdomen soft with bowel sounds Heel ulcers are showing good signs of granulation tissue Offloading dressing on place Discharge Data Studies Completed and Pending Pending at discharge Category Date Time Status Blood Culture Stat Lab 03/29/24 08:17 Results Laboratory Results WBC 6.14 10^3/uL (3.29-11.43) 03/30/24 04:28 RBC 4.45 10^6/uL (3.85-5.65) 03/30/24 04:28 Hgb 13.70 g/dL (11.27-16.99) 03/30/24 04:28 Hct 43.4 % (36-47) 03/30/24 04:28 MCV 97.5 fl (85-98) 03/30/24 04:28 MCH 30.8 pg (27-33) 03/30/24 04:28 MCHC 31.6 g/dL (30-55) 03/30/24 04:28 RDW 13.5 % (12.1-15.1) 03/30/24 04:28 Plt Count 213 10^3/cmm (157-399) 03/30/24 04:28 MPV 12.1 fL (7.4-10.4) H 03/30/24 04:28 Neut % (Auto) 72.0 % 03/30/24 04:28 Lymph % (Auto) 13.0 % 03/30/24 04:28 [place] % (Auto) 13.0 % 03/30/24 04:28 Eos % (Auto) 0.5 % 03/30/24 04:28 Baso % (Auto) 0.7 % 03/30/24 04:28 Neut # (Auto) 4.42 10^3/uL (1.8-7.7) 03/30/24 04:28 Lymph # (Auto) 0.8 10^3/uL (0.8-4.8) 03/30/24 04:28 [place] # (Auto) 0.8 10^3/uL (0.2-0.9) 03/30/24 04:28 Eos # (Auto) 0.0 10^3/uL (0.0-0.8) 03/30/24 04:28 Baso # (Auto) 0.0 10^3/uL (0.0-0.1) 03/30/24 04:28 Nucleated RBC % (auto) 0 % 03/30/24 04:28 Nucleated RBCs # 0.0 /100WBC 03/30/24 04:28 D-Dimer 1.59 ug/mLFEU (0-0.59) H 03/29/24 13:20 Sodium 139 mmol/L (136-145) 03/30/24 04:28 Potassium 3.5 mmol/L (3.5-5.1) 03/30/24 04:28 Chloride 101 mmol/L (98-107) 03/30/24 04:28 Carbon Dioxide 25 mmol/L (22-29) 03/30/24 04:28 Anion Gap 16.5 (5-19) 03/30/24 04:28 BUN 21 mg/dL (8-23) 03/30/24 04:28 Creatinine 0.8 mg/dL (0.5-0.9) 03/30/24 04:28 GFR Calculation Not Reportable 03/30/24 04:28 Glucose 107 mg/dL (65-115) 03/30/24 04:28 Calculated Osmolality 291 mOsm/kg (285-295) 03/30/24 04:28 Calcium 8.7 mg/dL (8.5-10.5) 03/30/24 04:28 Magnesium 1.8 mg/dL (1.7-2.3) 03/29/24 03:20 Troponin T Baseline 46 ng/L (0-10) H 03/29/24 22:15 Troponin T 120 Minute 44.49 ng/L (0-10) H 03/30/24 01:10 Delta Troponin T -1.51 ABS# (0-10) L 03/30/24 01:10 Troponin T Hi Sens 6Hr 38.90 ng/L (0-10) H 03/30/24 04:28 Troponin T Hi Sens 6Hr Delta -7.10 ng/L (0-12) L 03/30/24 04:28 C-Reactive Protein 7.0 mg/L (0.0-4.9) H 03/29/24 03:20 Vitamin B12 654 pg/mL (232-1245) 03/28/24 18:55 Vitals Last Vital Signs Temp 98.0 F 03/30/24 07:40 Pulse 90 03/30/24 07:52 Resp 14 03/30/24 07:52 BP 141/80 03/30/24 07:40 Pulse Ox 96 03/30/24 07:52 O2 Del Method Room Air 03/30/24 07:52 O2 Flow Rate 1 03/29/24 07:35 Discharge Plan Discharge Patient Disposition: Xfer SNF Condition: Fair Prescriptions: New potassium chloride [Klor-Con M20] 20 mEq Tablet,Er Particles/Crystals 20 meq PO DAILY PRN (Reason: with lasix only) Qty: 30 0RF levofloxacin 750 mg Tablet 750 mg PO DAILY@0600 Qty: 5 0RF furosemide [Lasix] 20 mg tablet 20 mg PO DAILY PRN (Reason: Cannot lay flat, short of breath) Qty: 30 3RF Rx Instructions: Significant shortness of breath or weight gain more than 3 pounds in 1 day Continued calcium carbonate-vitamin D3 [Calcium 600 with Vitamin D3] 600 mg(1,500mg) -500 unit capsule 1 cap PO DAILY multivitamin Tablet 1 tab PO DAILY acetaminophen [Tylenol Arthritis Pain] 650 mg tablet extended release 650 mg PO Q6H PRN (Reason: Pain, Mild) dabigatran etexilate [Pradaxa] 150 mg capsule 150 mg PO BID bisacodyl 10 mg suppository 10 mg OH DAILY PRN (Reason: Constipation) sodium phosphates 19-7 gram/197 mL enema 118 ml OH DAILY PRN (Reason: Constipation) magnesium hydroxide [Milk of Magnesia] 400 mg/5 mL suspension 15 ml PO DAILY PRN (Reason: Constipation) polyethylene glycol 3350 [Miralax] 17 gram/dose powder 4 g PO DAILY PRN (Reason: Constipation) Selsun Blue (pyrithione zinc) 1 % shampoo 1 applic topical DAILY Rx Instructions: wet hair then apply , let stand 5 mins then rinse. Repeat. (DME) trapeze bar See Rx Instructions .Route .MEDSUPPLY Qty: 1 0RF Rx Instructions: Utilize as Directed carbidopa-levodopa 25-100 mg tablet 1 tab PO TID@0815,1215,1615 Rx Instructions: one tablet by mouth once a day and two tablets by mouth two times a day ondansetron HCl 4 mg tablet 4 mg PO Q6H PRN (Reason: Nausea) Mucinex 600 mg Tablet Extended Release 12hr 600 mg PO Q12H PRN (Reason: Congestion) senna 8.6 mg Tablet 17.2 mg PO DAILY PRN (Reason: Constipation) Rx Instructions: 2 tabs guaifenesin 100 mg/5 mL Liquid 200 mg PO Q4H PRN (Reason: Cough) Discharge Orders: Discharge Order (Routine); Ordered 03/30/24 Ordered By: Rogerio Mckenan Referrals: [facility] [Outside] Discharge Diet: As Directed Patient Instructions: Opioid Safety Activity Restrictions/Additional Instructions: Soft and bite sized food level 6 dysphagia diet Discharge Attestations Time Spent in Discharge Care*: greater than 30 min Quality Metrics Clinical Quality Measures [ No reported AMI, CVA or VTE this stay] Coding Level of Care Code Acute Code for Chg Fwd Diagnoses DNR (do not resuscitate) Z66 Hypertensive urgency I16.0 New onset of congestive heart failure I50.9 Parkinson's disease without dyskinesia or fluctuating manifestations G20.A1 Dyskinesia presence: without dyskinesia Fluctuating manifestations: without fluctuating manifestations Acute respiratory failure with hypoxia J96.01
--- NOTE | 2024-03-30 12:01 | PC.SOCIAL ---
IMM Updated Updated pt's daughter on IMM. No questions voiced. Provided pt a copy. Initialed, dated, & timed a copy & placed in chart.
--- NOTE | 2024-03-30 14:03 | PC.NURSE ---
called [facility] to give report three times all calls went to voicemail. left a message. also called DON but my call went to voicemail. notified charge nurse sammy of [facility].
--- NOTE | 2024-03-30 15:01 | PC.NURSE ---
report called to SNF notified nurse on pt's discharge instructions and dupree catheter care and her diet consistenc-dysphagia level 6 w/thin liquids.
== END 2024-03-30 15:57 | disposition skilled nursing facility (03) | DRG 291 ==
LOC: ICU 03-29 08:10 → MEDSURG 03-29 12:09
PROVIDERS: Admitting Provider Internal Medicine; PCP Nurse Practitioner Family; Visit Provider Internal Medicine
DX: I11.0 Hypertensive heart disease with heart failure (principal); I50.33 Acute on chronic diastolic (congestive) heart failure; J96.01 Acute respiratory failure with hypoxia; N39.0 Urinary tract infection, site not specified; G20.A1 Parkinson's disease without dyskinesia, without mention of fluctuations; I48.91 Unspecified atrial fibrillation; Z66 Do not resuscitate; I16.0 Hypertensive urgency; Z96.651 Presence of right artificial knee joint; L89.609 Pressure ulcer of unspecified heel, unspecified stage; Z79.01 Long term (current) use of anticoagulants; Z79.899 Other long term (current) drug therapy; Z86.16 Personal history of COVID-19; Z82.49 Family history of ischemic heart disease and other diseases of the circulatory system; Z74.01 Bed confinement status
CPT/HCPCS: 36415; 80048; 82607; 83735; 84484; 85025; 85378; 86140; 87040; 92523; 92610; 93005; 94640; 96376; 97110; 97162; 97167; 97530; J1940; J7626

== ENCOUNTER 2024-05-10 17:45 | Inpatient (IN) | payer MEDICARE, SELFPAY ==
[2024-05-10] VITALS (12 sets, daily range): BP systolic 151–198; BP diastolic 92–126; PULSE 88–105; RESP 18–24; TEMP 36.8; O2SAT 90–99
--- NOTE | 2024-05-10 17:52 | XRR_ITS ---
PROCEDURE INFORMATION: Exam: XR Chest Exam date and time: 05/10/2024 6:05 PM Age: 78 years old Clinical indication: Other: Weakness TECHNIQUE: Imaging protocol: Radiologic exam of the chest. Views: 1 view. Other technique: BEDSIDE AP CHEST COMPARISON: 1. CT angio chest PE protcl [id number] 01/27/2023 11:16 PM 2. CR (CHEST, ) 01/25/2023 3:25 PM 3. CR XR chest 1V portable [id number] 11/17/2021 4:34 PM FINDINGS: Lungs: < 6 mm, very radiopaque nodule at left lateral lower lung is unchanged, corresponding to calcified granuloma on CTA. Consolidation at right mid-lower lung and left lower lung have developed. Mild, linear opacities at left lateral lower lung likely reflect subsegmental atelectasis. Pleural spaces: No definite pneumothorax. Mild-moderate blunting of right costophrenic sulcus and mild blunting of left costophrenic sulcus suggest pleural effusions. Heart/Mediastinum: A few, calcified, left hilar lymph nodes again suggest remote granulomatous disease. Heart is mild-moderately enlarged, increased from 01/25/23. Vasculature: Aorta is moderately calcified. Bones/joints: Mild right upper thoracic scoliosis is unchanged. Bones appear diffusely osteopenic. Degenerative facet disease of mid-lower cervical spine and degenerative disc disease of mid-lower thoracic spine are present. There are moderate osteoarthritis of left glenohumeral joint and mild osteoarthritis of right glenohumeral and left acromioclavicular joints. Bilateral humeral heads are high-riding, suggesting chronic rotator cuff tears. Soft tissues: Surgical clips at right axilla suggest axillary node dissection. XR/XR chest 1V portable [id number] IMPRESSION: 1. Interval development of consolidation at right mid-lower lung and left lower lung, suggesting atelectasis, aspiration, or pneumonia. Follow-up chest radiographs would be helpful to ensure clearing and to exclude mass. 2. Mild-moderate, right and mild, left pleural effusions. 3. Increased, mild-moderately enlarged heart. Atherosclerosis.
--- NOTE | 2024-05-10 17:53 | ECG_ITS ---
[facility] Test Date: 2024-05-10 Pat Name: Luly Castro Department: Room: Gender: Female Wood Machine Carver: : 1945 Requested By: Christine Vale Order Number: [id number] Leal MD: Sourav Jama M.D. Measurements Intervals [place] Rate: 98 P: 56 ME: 163 QRS: 19 QRSD: 86 T: 212 QT: 381 QTc: 487 Interpretive Statements SINUS RHYTHM WITH OCCASIONAL SUPRAVENTRICULAR PREMATURE COMPLEXES LEFT VENTRICULAR HYPERTROPHY AND ST-T CHANGE [VOLTAGE CRITERIA PLUS ST/T ABNORMALITY] Compared to ECG 03/30/2024 03:31:48 ST (T wave) deviation now present T-wave abnormality no longer present Electronically Signed On 05-11-2024 01:13:18 CDT by Sourav Jama M.D. [id number]
--- NOTE | 2024-05-10 18:00 | ED_ITS ---
HPI - Altered Mental Status 2 General: Chief Complaint: Altered Mental Status Stated Complaint: Unresp, AMS Time Seen by Provider: 05/10/24 17:51 History of Present Illness: 78-year-old female with history of demen tia A-fib on Pradaxa, congestive heart failure, Parkinson's, and hypertension who presents to the emergency room with altered mental status. Apparently she was unresponsive at the retirement. And route by ambulance states that she has become more responsive. Here she can tell me her name. When asked her age she says 67 when she is actually 78. No focal motor deficits. She says she has some mild chest pain. No other pain complaints. She has had no nausea or vomiting. No fevers. She is hypertensive on presentation. Related Data Home Medications Medication Instructions Recorded Confirmed calcium 600 mg (as 1 cap PO DAILY 12/26/19 03/28/24 carbonate)-vitamin D3 12.5 mcg (500 unit) capsule (Calcium with Vit D3) multivitamin 1 tab PO DAILY 12/26/19 03/28/24 carbidopa 25 mg-levodopa 100 mg 1 tab PO TID@0815,1215,1615 12/23/22 03/28/24 tablet acetaminophen 650 mg 650 mg PO Q6H PRN Pain, Mild 09/22/23 03/28/24 tablet,extended release (Tylenol Arthritis Pain) dabigatran etexilate 150 mg 150 mg PO BID 09/22/23 03/28/24 capsule (Pradaxa) bisacodyl 10 mg rectal suppository 10 mg WI DAILY PRN Constipation 10/19/23 03/28/24 magnesium hydroxide 400 mg/5 mL 15 ml PO DAILY PRN Constipation 10/19/23 03/28/24 oral suspension (Milk of Magnesia) polyethylene glycol 3350 17 4 g PO DAILY PRN Constipation 10/19/23 03/28/24 gram/dose oral powder (Miralax) pyrithione zinc 1 % shampoo 1 applic topical DAILY 10/19/23 03/28/24 (Selsun Blue (pyrithione zinc)) sodium phosphates 19 gram-7 118 ml WI DAILY PRN Constipation 10/19/23 03/28/24 gram/197 mL enema guaifenesin 100 mg/5 mL oral liquid 200 mg PO Q4H PRN Cough 03/28/24 03/28/24 guaifenesin 600 mg tablet, 600 mg PO Q12H PRN Congestion 03/28/24 03/28/24 extended release 12 hr (Mucinex) ondansetron HCl 4 mg tablet 4 mg PO Q6H PRN Nausea 03/28/24 03/28/24 sennosides 8.6 mg tablet (senna) 17.2 mg PO DAILY PRN Constipation 03/28/24 03/28/24 Previous Rx's Medication Instructions Recorded trapeze bar #1 ea 10/08/21 furosemide 20 mg tablet (Lasix) 20 mg PO DAILY PRN Cannot lay 03/30/24 flat, short of breath #30 tabs levofloxacin 750 mg tablet 750 mg PO DAILY@0600 #5 tabs 03/30/24 potassium chloride 20 mEq 20 meq PO DAILY PRN with lasix 03/30/24 tablet,extended only #30 tabs release(part/cryst) (Klor-Con M) Allergies Allergy/AdvReac Type Severity Reaction Status Date / Time No Known Allergies Allergy Verified 02/15/24 11:24 Review of Systems 2 Narrative: Constitutional symptoms: Negative except as documented in HPI. Skin symptoms: Negative except as documented in HPI. Eye symptoms: Negative except as documented in HPI. ENMT symptoms: Negative except as documented in HPI. Respiratory symptoms: Negative except as documented in HPI. Cardiovascular symptoms: Negative except as documented in HPI. Gastrointestinal symptoms: Negative except as documented in HPI. Genitourinary symptoms: Negative except as documented in HPI. Musculoskeletal symptoms: Negative except as documented in HPI. Neurologic symptoms: Negative except as documented in HPI. Psychiatric symptoms: Negative except as documented in HPI. Endocrine symptoms: Negative except as documented in HPI. PFSH ED 2 PFSH: Medical History Parkinson disease Anemia Atrial fibrillation Failure of total knee arthroplasty Primary osteoarthritis of right knee Syncope and collapse Unstable right knee Peripheral neuropathy Hammertoes of both feet HTN (hypertension) Surgical History Status post total right knee replacement not using cement Date of procedure: December 23, 2022 Diagnosis: Primary osteoarthritis right knee Post-op findings: Severe osteoarthritis with large osteophytes as well as significant flexion contracture (18 degrees) and varus deformities. Patellar deformity with osteophytes superiorly nearly as large as the patella. Large loose body which was removed as well Procedure done: Right total knee arthroplasty with Marty guidance Implants: The Braxton total knee system with a size 4 triathlon beaded cruciate retaining femur right, a triathlon titanium tibial component size 4 beaded, a triathlon X3 tibial bearing CS insert size 4 X 14 mm and a beaded triathlon titanium asymmetric patella size 35 x 10 mm H/O mastectomy History of back surgery H/O ovarian cystectomy H/O total knee replacement Family History Mother CAD (coronary artery disease) Diabetes Father CAD (coronary artery disease) Diabetes Social History Smoking and tobacco/nicotine status: never used tobacco/nicotine Female Reproductive History: Spontaneous abortions: No Physical Exam 2 Narrative: General: Alert, no acute distress. Skin: Warm, dry. Head: Normocephalic, atraumatic. Neck: Supple, trachea midline. Eye: Extraocular movements are intact. Ears, nose, mouth and throat: mucosa moist. Cardiovascular: Regular, Normal peripheral perfusion. Respiratory: Lungs are clear to auscultation, respirations are non-labored, breath sounds are equal, Symmetrical chest wall expansion. Gastrointestinal: Soft, Nontender, Non distended Musculoskeletal: Normal ROM, no deformity. Neurological: Alert, No focal neurological deficit observed. Psychiatric: Cooperative, she seems slightly confused Course 2 Vital Signs: Vital signs: Vital Signs Temperature 98.3 F 05/10/24 17:46 Pulse Rate 102 H 05/10/24 21:00 Respiratory Rate 19 H 05/10/24 17:46 Blood Pressure 198/125 05/10/24 21:00 Pulse Oximetry 95 05/10/24 21:00 Oxygen Delivery Me thod Nasal Cannula 05/10/24 20:00 Oxygen Flow Rate 2 05/10/24 20:00 MDM - Altered Mental Status Medical Decision Making Medical decision making: Differential diagnosis including but not limited to and based on the above HPI, review of systems and physical exam: In this patient with altered mental status: Stroke. Hypoglycemia. Metabolic encephalopathy. Infections such as pneumonia, urinary tract infection, Covid-19, Influenza. Electrolyte abnormalities such as hypernatremia. Renal failure / uremia. Hepatic encephalopathy. Hypoxemia. Hypercapnic respiratory failure. Psychosis. Drug or alcohol intoxication. Medication overdose. Orders placed to evaluate differential diagnosis based on the above differential, HPI and physical exam EKG: Time 175. Rate 98. Some signs of LVH. Normal sinus rhythm, No ST-T changes, no ectopy, normal WI & QRS intervals, This was reviewed and interpreted by myself the ER physician at 1803. Repeat EKG: Time 2016. Rate 96. LVH. Normal sinus rhythm, No ST-T changes, no ectopy, normal WI & QRS intervals, This was reviewed and interpreted by myself the ER physician at 2021. No changes from previous EKG. Chest x-ray: Consolidation in the mid right lower lung possible atelectasis aspiration or pneumonia. Pleural effusions. CT was ordered to further evaluate. This was reviewed and interpreted by myself the emergency room physician. I also reviewed the radiology report. CT head: Senescent changes. Volume loss. Old infarcts. Microvascular changes. No acute intracranial process. no intracranial hemorrhage, no evidence of infarct. no evidence of acute fracture.This was reviewed and interpreted by myself the ER physician. Lab Review: Laboratory results were reviewed and interpreted by myself the emergency room physician. No leukocytosis. No anemia. BUN is slightly elevated at 26. Creatinine normal at 0.7. Urinalysis shows no infection. CT of the chest shows several less than 1 cm nodule opacities that could be septic emboli or atypical infection. There is post opacities in the right upper lobe. Effusions. Details below. This was reviewed and interpreted by myself the emergency room physician. I also reviewed the radiology report. I reviewed the patient's medical record. There was some concern for septic emboli on CT of the chest. The doxycycline is being given but I do not think she is septic. She is hypertensive. Her lactic acid is not elevated and her white count is not elevated. Reexamination: Patient remains somewhat confused and hypertensive. No focal motor deficits. She has no pain complaints at this time. Consultation: I spoke with Dr. Romero who is on-call for the hospitalist service and she is admitting the patient. Assessment and plan: Acute encephalopathy Accelerated hypertension Pleural effusions Possible pneumonia ?IV doxycycline and IV Lasix. -I discussed the patient with the hospitalist on-call who is admitting the patient. - Discussed findings and plan with patient. Answered any questions. - All laboratory values were reviewed and interpreted personally by myself, the ER physician - All imaging was reviewed and interpreted personally by myself, the ER physician. - Evaluation and treatment of this problem were appropriate in the emergency setting Lab Data 05/10/24 19:01 05/10/24 19:01 Radiology Impressions Chest X-Ray 05/10/24 17:52 IMPRESSION: 1. Interval development of consolidation at right mid-lower lung and left lower lung, suggesting atelectasis, aspiration, or pneumonia. Follow-up chest radiographs would be helpful to ensure clearing and to exclude mass. 2. Mild-moderate, right and mild, left pleural effusions. 3. Increased, mild-moderately enlarged heart. Atherosclerosis. Head CT 05/10/24 18:02 IMPRESSION: 1. Moderate cerebral volume loss. 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 Mild-moderate hypodensities at bilateral periventricular white matter and centrum semiovale, suggesting microvascular ischemic changes. 2. Atherosclerosis. Chest CT 05/10/24 19:09 IMPRESSION: 1. Several, < 1 cm, nodular opacities with ground-glass halos scattered within bilateral lungs. Differential diagnosis includes septic emboli, atypical infections, such as TB or fungal, granulomatous diseases, such as sarcoidosis or granulomatosis with polyangiitis, or other inflammatory entities. Mild air-space opacities at periphery of anterior right upper lobe and medial and lateral right middle lobe, possibly reflecting compressive atelectasis or pneumonia. 2. Moderate, right and mild-moderate, left, low density, pleural effusions. 3. Moderate cardiomegaly. Atherosclerosis. 4. 2.2 x 3.1 cm, mildly high attenuation lesion at lower pole of left kidney, only partially within region scanned, indeterminate in nature. Recommend non-emergent MRI without and with contrast or non-emergent CT without and with contrast. MRI is preferred for masses under 1.5 cm. 5. Low attenuation lesion containing a few bubbles of gas and mildly thick spears within peritoneum at midline of anterior upper abdomen, only partially within region scanned. Although this may reflect loop of bowel, fluid collection cannot be excluded. If clinically indicated, abdomen/pelvis CT with IV contrast may be helpful further evaluation. COMMENTS: Consistent with the [employer]'s Incidental Findings Committee white paper (J Am Cyndie Radiol 2018): Any incidental renal lesion less than 1 cm or classified as too small to characterize, or any incidental cystic renal lesion characterized as simple-appearing, is likely benign. No follow-up imaging is recommended for these lesions per consensus recommendations based on imaging criteria. Laboratory Results WBC 6.66 10^3/uL (3.29-11.43) 05/10/24 19: RBC 3.96 10^6/uL (3.85-5.65) 05/10/24 19: Hgb 11.70 g/dL (11.27-16.99) 05/10/24 19: Hct 37.4 % (36-47) 05/10/24 19: MCV 94.4 fl (85-98) 05/10/24 19: MCH 29.5 pg (27-33) 05/10/24 19: MCHC 31.3 g/dL (30-55) 05/10/24 19: RDW 14.8 % (12.1-15.1) 05/10/24 19: Plt Count 259 10^3/cmm (157-399) 05/10/24 19: MPV 11.9 fL (7.4-10.4) H 05/10/24 19: Neut % (Auto) 69.2 % 05/10/24 19: Lymph % (Auto) 15.3 % 05/10/24 19:01 [place] % (Auto) 12.8 % 05/10/24 19: Eos % (Auto) 0.6 % 05/10/24 19: Baso % (Auto) 0.6 % 05/10/24 19: Neut # (Auto) 4.61 10^3/uL (1.8-7.7) 05/10/24 19: Lymph # (Auto) 1.0 10^3/uL (0.8-4.8) 05/10/24 19: [place] # (Auto) 0.9 10^3/uL (0.2-0.9) 05/10/24 19:01 Eos # (Auto) 0.0 10^3/uL (0.0-0.8) 05/10/24 19: Baso # (Auto) 0.0 10^3/uL (0.0-0.1) 05/10/24 19:01 Nucleated RBC % (auto) 0 % 05/10/24 19:01 Nucleated RBCs # 0.0 /100WBC 05/10/24 19:01 Specimen Type Arterial 05/10/24 20:42 Sample Site Radial, left 05/10/24 20:42 ABG pH 7.49 (7.35-7.45) H 05/10/24 20:42 ABG pCO2 33.6 mmHg (35-45) L 05/10/24 20:42 ABG pO2 88.1 mmHg (80.0-100.0) 05/10/24 20:42 ABG HCO3 25.6 mmol/L (22-26) 05/10/24 20:42 ABG O2 Saturation 97.9 05/10/24 20:42 ABG Base Excess 2.6 mmol/L (-2.0-2.0) H 05/10/24 20:42 Vitaliy Test Pos 05/10/24 20:42 A-a O2 Gradient 2.7 mmHg (5-10) L 05/10/24 20:42 Hematocrit 36.7 % (37-47) L 05/10/24 20:42 Hgb O2 Saturation 95.7 % (95-100) 05/10/24 20:42 Carboxyhemoglobin 1.3 %THgb (0.4-20.1) 05/10/24 20:42 Methemoglobin 0.9 % (0.4-1.5) 05/10/24 20:42 Total Hemoglobin 12.0 g/dL (12-16) 05/10/24 20:42 Sodium 144.0 mmol/L (131-143) H 05/10/24 20:42 Potassium 3.6 mmol/L (3.5-5.0) 05/10/24 20:42 Glucose 101.0 mg/dL (70-115) 05/10/24 20:42 Ionized Calcium 1.3 mmol/L (1.1-1.4) 05/10/24 20:42 O2 Delivery Device Nc 05/10/24 20:42 O2 Liters/Min 2.0 % 05/10/24 20:42 Sales Promoter ID [email or web address] 05/10/24 20:42 Sodium 140 mmol/L (136-145) 05/10/24 19: Potassium 4.1 mmol/L (3.5-5.1) 05/10/24 19: Chloride 105 mmol/L (98-107) 05/10/24 19: Carbon Dioxide 25 mmol/L (22-29) 05/10/24 19: Anion Gap 14.1 (5-19) 05/10/24 19: BUN 26 mg/dL (8-23) H 05/10/24 19: Creatinine 0.7 mg/dL (0.5-0.9) 05/10/24 19: GFR Calculation Not Reportable 05/10/24: Glucose 99 mg/dL (65-115) 05/10/24: Calculated Osmolality 295 mOsm/kg (285-295) 05/10/24: Lactic Acid 1.7 mmol/L (0.5-2.2) 05/10/24: Calcium 8.9 mg/dL (8.5-10.5) 05/10/24: Total Bilirubin 0.6 mg/dL (0.15-1.2) 05/10/24 19: AST 15 U/L (0-32) 05/10/24 19: ALT < 5 U/L (0-33) 05/10/24 19: Alkaline Phosphatase 142 U/L (35-105) H 05/10/24 19: Troponin T Baseline 49 ng/L (0-10) H 05/10/24 19: Total Protein 6.4 g/dL (6.6-8.7) L 05/10/24: Albumin 3.5 g/dL (3.5-5.2) 05/10/24 19: Globulin 2.9 g/dL (1.3-4.6) 05/10/24 19: Urine Color Dark yellow (Yellow) A 05/10/24: Urine Appearance Clear (CLEAR) 05/10/24: Urine pH 5.0 (5-7) 05/10/24: Ur Specific [place] 1.038 (1.005-1.030) H 05/10/24: Urine Protein 2+ (Negative) A 05/10/24: Urine Glucose (UA) Negative (Normal) 05/10/24 19:37 Urine Ketones Trace (Negative) 05/10/24 19:37 Urine Blood Negative (Negative) 05/10/24 19:37 Urine Nitrate Negative (Negative) 05/10/24 19:37 Urine Bilirubin 1+ (Negative) H 05/10/24 19:37 Urine Urobilinogen 1.0 mg/dL (Negative) 05/10/24 19:37 Ur Leukocyte Esterase Trace (Negative) A 05/10/24 19:37 Urine RBC 3-5 /hpf (0-2) 05/10/24 19:37 Urine WBC 6-10 /hpf (0-5) 05/10/24 19:37 Ur Squamous Epith Cells 0-5 /hpf (0-5) 05/10/24 19:37 Amorphous Sediment Not Reportable 05/10/24 19:37 Urine Bacteria None seen /hpf (NONE) 05/10/24 19:37 Hyaline Casts 2.05 /lpf 05/10/24 19:37 Urine Yeast 1+ /hpf H 05/10/24 19:37 Coronavirus (PCR) Negative (Negative) 05/10/24 18:35 Influenza A (PCR) Negative (Negative) 05/10/24 18:35 Influenza Type B (PCR) Negative (Negative) 05/10/24 18:35 RSV (PCR) Negative (Negative) 05/10/24 18:35 All radiology interpretation(s) finalized by discharge Discharge Plan Discharge Patient Disposition: Admitted As Inpatient Clinical Impression: Acute metabolic encephalopathy, CHF (congestive heart failure), Accelerated hypertension, Pneumonia, Pleural effusion Condition: Stable Coding Level of Care Code ED Personal Development Educator for Jenn Puentes
--- NOTE | 2024-05-10 18:02 | CTR_ITS ---
PROCEDURE INFORMATION: Exam: CT Head Without Contrast Exam date and time: 05/10/2024 6:10 PM Age: 78 years old Clinical indication: Encephalopathy. Altered mental status and memory loss. TECHNIQUE: Imaging protocol: Computed tomography of the head without contrast. Total images: 290 submitted. Radiation optimization: All CT scans at this facility use at least one of these dose optimization techniques: automated exposure control; mA and/or kV adjustment per patient size (includes targeted exams where dose is matched to clinical indication); or iterative reconstruction. COMPARISON: 1. CT head wo con* [id number] 07/15/2022 6:[address] head wo con* [id number] 11/17/2021 5:02 PM RADIATION DOSE METRICS: Total DLP (mGy-cm): 1033 FINDINGS: Brain: No midline shift. Cisterns are noneffaced. 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 Mild-moderate, ill-defined, low attenuation areas at bilateral periventricular white matter and centrum semiovale suggest microvascular ischemic changes. No abnormal high attenuation lesions within brain parenchyma. No intracranial hemorrhage. No definite evidence of acute infarcts. However, diffusion MRI is more sensitive. No extra-axial fluid collections. Cerebral ventricles: Ventricles along with cerebral sulci are moderately enlarged, reflecting volume loss. Occipital horn of left lateral ventricle is asymmetrically moderately enlarged, suggesting ex vacuo dilatation. Paranasal sinuses: Visualized sinuses are clear. Right > left sphenoid sinus extend into greater wings and pterygoid plates (lateral recesses). Mastoid air cells: Visualized mastoid air cells are well aerated. Orbital cavities: Visualized orbits are normal. Bones: No acute fractures. Right mandibular condyle is mildly hypoplastic and dysplastic. Soft tissues: Grossly unremarkable. Vasculature: C3 lacerum segment of left internal carotid artery is mildly calcified. Bilateral cavernous and ophthalmic carotid arteries are moderately calcified. CT/CT head wo con* [id number] IMPRESSION: 1. Moderate cerebral volume loss. 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 Mild-moderate hypodensities at bilateral periventricular white matter and centrum semiovale, suggesting microvascular ischemic changes. 2. Atherosclerosis.
--- NOTE | 2024-05-10 19:09 | CTR_ITS ---
PROCEDURE INFORMATION: Exam: CT Chest Without Contrast; Diagnostic Exam date and time: 05/10/2024 7:42 PM Age: 78 years old Clinical indication: Other: Abnormal chest xray TECHNIQUE: Imaging protocol: Diagnostic computed tomography of the chest without contrast. Total images: 352 submitted. Radiation optimization: All CT scans at this facility use at least one of these dose optimization techniques: automated exposure control; mA and/or kV adjustment per patient size (includes targeted exams where dose is matched to clinical indication); or iterative reconstruction. COMPARISON: 1. CT angio chest PE protcl [id number] 01/27/2023 11:16 PM 2. CR (CHEST, ) 05/10/2024 6:05 PM 3. CR (CHEST, ) 01/25/2023 3:25 PM RADIATION DOSE METRICS: Total DLP (mGy-cm): 389 FINDINGS: Trachea: Conventional. Lungs: Several, < 1 cm, nodular opacities with surrounding, ground-glass halos are scattered within bilateral lungs. A few, < 8 mm, calcified granulomas scattered within bilateral lungs are unchanged. There are mild air-space opacities at periphery of anterior right upper lobe and medial and lateral right middle lobe. Moderate air-space opacities at dependent portions of bilateral lower lobes and mild, reticular opacities at dependent portions of bilateral upper and lower lobes likely represent compressive and subsegmental atelectasis. Pleural spaces: No pneumothorax. There are moderate, right and mild-moderate, left, low density (Hounsfield units -2 to 7), pleural effusions. Right pleural effusion extends into major fissure. Heart: Heart is moderately enlarged, particularly bilateral atria. Mild, low density, pericardial fluid at superior pericardial recess likely is physiologic in nature. Mediastinal space: Normal. Lymph nodes: < 8 mm in short axis, nonradiographically enlarged, anterior mediastinal lymph node is slightly increased. A few, calcified, anterior mediastinal, pretracheal, precarinal, and bilateral hilar lymph nodes suggest remote granulomatous disease. Vasculature: Descending thoracic aorta is mildly tortuous. Thoracic and origins of right brachiocephalic, bilateral subclavian, and left common carotid arteries are moderately calcified. Left proximal-mid subclavian artery is mild-moderately calcified. Visualized abdominal aorta and origins of celiac, superior mesenteric, and bilateral main renal arteries are moderately calcified. Liver: A few, < 3 mm, calcified granulomas are scattered within bilateral lobes of visualized liver. Spleen: A few, < 6 mm, calcified granulomas are scattered within spleen. Adrenal glands: Right adrenal is normal. Left adrenal is thick and plump. Kidneys: Posterolateral aspect of lower pole of left kidney contains a partially visualized, 2.2 x 3.1 cm, oval, exophytic, mildly high attenuation (Hounsfield units 33) lesion. Intraperitoneal space: [place], low attenuation (Hounsfield units -1) lesion containing a few bubbles of gas and mildly thick spears within peritoneum at midline of anterior upper abdomen is only partially within region scanned. Bones/joints: Mild right lower thoracic and left upper lumbar scoliosis is unchanged. There have been bilateral laminectomies at L3. Gas within T7/8, T11/12, and T12/L1 discs suggests vacuum discs. T6/7, T7/8, T8/9, and T9/10 discs are calcified. Degenerative disc and facet disease of lower cervical spine, degenerative disc disease of several levels of thoracic spine, and degenerative disc and facet disease of visualized lumbar spine are present. < 4 mm, oval, well-defined, sclerotic lesion at left humeral head statistically probably represents benign bone island. There are moderate osteoarthritis of left glenohumeral and right sternoclavicular joints, mild-moderate osteoarthritis of right glenohumeral joint, and mild osteoarthritis of left sternoclavicular and acromioclavicular joints. A few, < 1.4 cm ossifications at right glenohumeral joint suggest ossified loose bodies. Bilateral humeral heads are high-riding, suggesting chronic rotator cuff tears. Prosthetic disc at L2/3, bone graft material at bilateral posterior at least L2-3, and bilateral posterior lumbar spinal fixation rods with pedicle screws spanning at least L2-3 are evident. Soft tissues: Left upper outer breast contains a few, grouped, benign-appearing, round and dystrophic calcifications. < 1.3 cm calcification within anterior head of left deltoid muscle is unchanged. Surgical clips at right axilla suggest axillary node dissection. CT/CT chest wo con [id number] IMPRESSION: 1. Several, < 1 cm, nodular opacities with ground-glass halos scattered within bilateral lungs. Differential diagnosis includes septic emboli, atypical infections, such as TB or fungal, granulomatous diseases, such as sarcoidosis or granulomatosis with polyangiitis, or other inflammatory entities. Mild air-space opacities at periphery of anterior right upper lobe and medial and lateral right middle lobe, possibly reflecting compressive atelectasis or pneumonia. 2. Moderate, right and mild-moderate, left, low density, pleural effusions. 3. Moderate cardiomegaly. Atherosclerosis. 4. 2.2 x 3.1 cm, mildly high attenuation lesion at lower pole of left kidney, only partially within region scanned, indeterminate in nature. Recommend non-emergent MRI without and with contrast or non-emergent CT without and with contrast. MRI is preferred for masses under 1.5 cm. 5. Low attenuation lesion containing a few bubbles of gas and mildly thick spears within peritoneum at midline of anterior upper abdomen, only partially within region scanned. Although this may reflect loop of bowel, fluid collection cannot be excluded. If clinically indicated, abdomen/pelvis CT with IV contrast may be helpful further evaluation. COMMENTS: Consistent with the [employer]'s Incidental Findings Committee white paper (J Am Cyndie Radiol 2018): Any incidental renal lesion less than 1 cm or classified as too small to characterize, or any incidental cystic renal lesion characterized as simple-appearing, is likely benign. No follow-up imaging is recommended for these lesions per consensus recommendations based on imaging criteria.
[2024-05-10 19:19] LABS: Basophils % 0.6 %; Eosinophils % 0.6 %; Hematocrit 37.4 % (36-47); Lymphocytes % 15.3 %; Mean Corpuscular HGB Conc 31.3 g/dL (30-55); Mean Corpuscular Hemoglobin 29.5 pg (27-33); Mean Corpuscular Volume 94.4 fl (85-98); Mean Platelet Volume 11.9 fL (7.4-10.4); Monocytes # 0.9 10^3/uL (0.2-0.9); Monocytes % 12.8 %; Neutrophils # 4.61 10^3/uL (1.8-7.7); Neutrophils % 69.2 %; Nucleated Red Blood Cells % 0 %; Platelet Count 259 10^3/cmm (157-399); Red Blood Count 3.96 10^6/uL (3.85-5.65); Red Cell Distribution Width 14.8 % (12.1-15.1); White Blood Count 6.66 10^3/uL (3.29-11.43)
[2024-05-10 19:38] LABS: Covid PCR NEGATIVE (Negative); Influenza A NEGATIVE (Negative); Influenza B NEGATIVE (Negative); Respiratory Syncytial Virus Ce NEGATIVE (Negative)
[2024-05-10 19:43] LABS: Troponin(5th) Baseline 49 ng/L (0-10)
[2024-05-10 19:44] LABS: Alanine Aminotransferase < 5 U/L (0-33); Albumin Level 3.5 g/dL (3.5-5.2); Alkaline Phosphatase 142 U/L (35-105); Anion Gap 14.1 (5-19); Aspartate Amino Transferase 15 U/L (0-32); Blood Urea Nitrogen 26 mg/dL (8-23); Calcium 8.9 mg/dL (8.5-10.5); Carbon Dioxide 25 mmol/L (22-29); Chloride 105 mmol/L (98-107); Creatinine Clr Calc Pharmacy 54.8937; Globulin 2.9 g/dL (1.3-4.6); Glucose 99 mg/dL (65-115); Osmolality Calculated 295 mOsm/kg (285-295); Potassium 4.1 mmol/L (3.5-5.1); Sodium 140 mmol/L (136-145); Total Bilirubin 0.6 mg/dL (0.15-1.2); Total Protein 6.4 g/dL (6.6-8.7)
[2024-05-10 19:45] LABS: Lactic Sepsis W/Reflex 1.7 mmol/L (0.5-2.2)
[2024-05-10 19:53] LABS: Bilirubin Urine 1+ (Negative); Blood Urine Negative (Negative); Glucose Urine UA Negative (Normal); Ketones Urine Trace (Negative); Leukocyte Esterase Urine Trace (Negative); Nitrate Urine Negative (Negative); Protein Urine 2+ (Negative); Urine Appearance Clear (CLEAR); Urine Color Dark Yellow (Yellow)
--- NOTE | 2024-05-10 19:53 | ECG_ITS ---
[facility] Test Date: 2024-05-10 Pat Name: Luly Castro Department: Room: Gender: Female Pals Nurse: : 1945 Requested By: Christine Vale Order Number: [id number] Elvis MD: Sourav Jama M.D. Measurements Intervals [place] Rate: 96 P: 62 NM: 166 QRS: 45 QRSD: 88 T: 262 QT: 383 QTc: 484 Interpretive Statements SINUS RHYTHM LEFT VENTRICULAR HYPERTROPHY AND ST-T CHANGE [VOLTAGE CRITERIA PLUS ST/T ABNORMALITY] Diffuse non specific ST T changes Compared to ECG 05/10/2024 17:59:11 No significant changes Electronically Signed On 05-12-2024 01:07:37 CDT by Sourav Jama M.D. [email or web address]
[2024-05-10 19:58] LABS: Bacteria Urine None Seen /hpf; Hyaline Casts Urine 2.05 /lpf; Squamous Epithelial Cell Urine 0-5 /hpf (0-5)
[2024-05-10 20:05] LABS: Specific Gravity, Urine 1.038 (1.005-1.030)
[2024-05-10 20:08] LABS: Add Urine Culture? No
[2024-05-10 20:53] LABS: ABG PCO2 33.6 mmHg (35-45); ABG PH Result 7.49 (7.35-7.45); Alveolar-Arterial Oxygen Gradi 2.7 mmHg (5-10); Arterial Blood Gas Hematocrit 36.7 % (37-47); Base Excess ABG 2.6 mmol/L (-2.0-2.0); Blood Gas Allen Test Pos; Blood Gas Sample Site Radial, left; Blood Gas Sample Type Arterial; Carboxyhemoglobin 1.3 %THgb (0.4-20.1); HCO3 ABG 25.6 mmol/L (22-26); HGB O2 Sat 95.7 % (95-100); Ionized Calcium Level - ABG 1.3 mmol/L (1.1-1.4); Methemoglobin 0.9 % (0.4-1.5); Oxygen Device NC; Oxygen Saturation ABG 97.9; PO2 ABG 88.1 mmHg (80.0-100.0); Potassium Level - ABG 3.6 mmol/L (3.5-5.0)
[2024-05-10] MEDS: doxycycline 100 MG in sodium chloride 0.9% (plus) 100 ML IV (21:18)
[2024-05-10] MEDS: FUROsemide 10 mg/mL SDV 4mL 40 MG IVP (21:18)
[2024-05-10 21:34] LABS: Troponin 5 2HR 44.47 ng/L (0-10)
[2024-05-10 21:35] LABS: Troponin 5 2HR Delta -4.53 ABS# (0-10)
[2024-05-10 21:51] LABS: NT Pro B Type Natriuretic Pept 25199 pg/mL (0-450)
--- NOTE | 2024-05-10 23:53 | ECG_ITS ---
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 Measurements Intervals [place] Rate: 91 P: 48 OR: 174 QRS: 18 QRSD: 83 T: 250 QT: 402 QTc: 497 Interpretive Statements SINUS RHYTHM WITH OCCASIONAL SUPRAVENTRICULAR PREMATURE COMPLEXES POSSIBLE LEFT ATRIAL ENLARGEMENT [-0.1mV P-WAVE IN V1/V2] POSSIBLE LEFT VENTRICULAR HYPERTROPHY [VOLTAGE CRITERIA PLUS LAE OR QRS WIDENING] NONSPECIFIC ST & T-WAVE ABNORMALITY Compared to ECG 05/10/2024 20:16:48 T-wave abnormality now present ST (T wave) deviation no longer present Electronically Signed On 05-12-2024 01:07:45 CDT by Sourav Jama M.D. [email or web address]
[2024-05-11] VITALS (10 sets, daily range): BP systolic 119–183; BP diastolic 65–112; PULSE 79–122; RESP 17–27; TEMP 36.1–37.2; O2SAT 92–97
--- NOTE | 2024-05-11 01:02 | PM.HP ---
Providers/Chief Complaint Admitting Physician: Kennedi Romero MD Primary Care Provider: BRETT Perry Chief Complaint: Unresp, AMS History of Present Illness Luly Castro is a 78 year old female with history of Parkinson's, A-fib, takes Pradaxa, bedbound related to worsening of functional capacity, resident of care home who was recently admitted to the hospital in March 2024 with acute on chronic diastolic CHF exacerbation. She was noted to have paucity of speech, extremely rigid movements of her extremities, at her baseline she is dependent for ADLs. She was discharged to care home with Lasix changed to as needed. Hospice referral was provided at discharge and it appears she remained on hospice for a while at the care home but was thereafter taken off hospice. Uncertain regarding details of the change in status. She has been brought to the emergency room today with chief complaints of altered mental status. At the care home she was unresponsive, did not answer basic questions which appears she is able to do at the baseline. Upon arrival at the ER she was able to state her correct name. She was disoriented as to her whereabouts and could not state her date of . She denied having any pain at any site. Is unable to provide any other history. Review of Systems General: Reports: ROS unobtainable due to medical condition Medications/Allergies Home Medications Medication Instructions Recorded Confirmed Last Taken Type calcium 600 mg (as 1 cap PO DAILY 12/26/19 03/28/24 01/22/23 History carbonate)-vitamin D3 12.5 mcg (500 unit) capsule (Calcium with Vit D3) multivitamin 1 tab PO DAILY 12/26/19 03/28/24 01/22/23 History trapeze bar #1 ea 10/08/21 03/28/24 Unknown Rx carbidopa 25 mg-levodopa 100 mg 1 tab PO TID@0815,1215,1615 12/23/22 03/28/24 01/22/23 History tablet acetaminophen 650 mg 650 mg PO Q6H PRN Pain, Mild 09/22/23 03/28/24 Unknown History tablet,extended release (Tylenol Arthritis Pain) dabigatran etexilate 150 mg 150 mg PO BID 09/22/23 03/28/24 Unknown History capsule (Pradaxa) bisacodyl 10 mg rectal suppository 10 mg WI DAILY PRN Constipation 10/19/23 03/28/24 Unknown History magnesium hydroxide 400 mg/5 mL 15 ml PO DAILY PRN Constipation 10/19/23 03/28/24 Unknown History oral suspension (Milk of Magnesia) polyethylene glycol 3350 17 4 g PO DAILY PRN Constipation 10/19/23 03/28/24 Unknown History gram/dose oral powder (Miralax) pyrithione zinc 1 % shampoo 1 applic topical DAILY 10/19/23 03/28/24 Unknown History (Selsun Blue (pyrithione zinc)) sodium phosphates 19 gram-7 118 ml WI DAILY PRN Constipation 10/19/23 03/28/24 Unknown History gram/197 mL enema guaifenesin 100 mg/5 mL oral liquid 200 mg PO Q4H PRN Cough 03/28/24 03/28/24 Unknown History guaifenesin 600 mg tablet, 600 mg PO Q12H PRN Congestion 03/28/24 03/28/24 Unknown History extended release 12 hr (Mucinex) ondansetron HCl 4 mg tablet 4 mg PO Q6H PRN Nausea 03/28/24 03/28/24 Unknown History sennosides 8.6 mg tablet (senna) 17.2 mg PO DAILY PRN Constipation 03/28/24 03/28/24 Unknown History furosemide 20 mg tablet (Lasix) 20 mg PO DAILY PRN Cannot lay 03/30/24 Unknown Rx flat, short of breath #30 tabs levofloxacin 750 mg tablet 750 mg PO DAILY@0600 #5 tabs 03/30/24 Unknown Rx potassium chloride 20 mEq 20 meq PO DAILY PRN with lasix 03/30/24 Unknown Rx tablet,extended only #30 tabs release(part/cryst) (Klor-Con M) Allergies Allergy/AdvReac Type Severity Reaction Status Date / Time No Known Allergies Allergy Verified 02/15/24 11:24 PFSH Acute PFSH: Medical History Parkinson disease Anemia Atrial fibrillation Failure of total knee arthroplasty Primary osteoarthritis of right knee Syncope and collapse Unstable right knee Peripheral neuropathy Hammertoes of both feet HTN (hypertension) Surgical History Status post total right knee replacement not using cement Date of procedure: December 23, 2022 Diagnosis: Primary osteoarthritis right knee Post-op findings: Severe osteoarthritis with large osteophytes as well as significant flexion contracture (18 degrees) and varus deformities. Patellar deformity with osteophytes superiorly nearly as large as the patella. Large loose body which was removed as well Procedure done: Right total knee arthroplasty with Marty guidance Implants: The Anderson total knee system with a size 4 triathlon beaded cruciate retaining femur right, a triathlon titanium tibial component size 4 beaded, a triathlon X3 tibial bearing CS insert size 4 X 14 mm and a beaded triathlon titanium asymmetric patella size 35 x 10 mm H/O mastectomy History of back surgery H/O ovarian cystectomy H/O total knee replacement Family History Mother CAD (coronary artery disease) Diabetes Father CAD (coronary artery disease) Diabetes Social History Smoking and tobacco/nicotine status: never used tobacco/nicotine Female Reproductive History: Spontaneous abortions: No Vitals/I&O/Wt Last Vital Signs Temp 98.3 F 05/10/24 17:46 Pulse 88 05/10/24 23:50 Resp 18 05/10/24 23:50 BP 164/92 05/10/24 23:50 Pulse Ox 99 05/10/24 23:50 O2 Del Method Nasal Cannula 05/10/24 23:51 O2 Flow Rate 2 05/10/24 23:50 05/10/24 05/10/24 05/11/24 14:59 22:59 06:59 Intake Total 100 / 100 Balance 100 / 100 Weight last 48 hrs Weight 56 kg Weight 63.503 kg Physical Exam Narrative: General: No acute distress, AO x1 HEENT: PERRLA, pupils bilaterally equal and reactive, pallors not present Chest: Normal vesicular breath sounds, no added sounds, equal good air entry bilaterally CVS: S1-S2 regular, no murmurs, no tachycardia, no gallops, no rubs Abdomen: Soft, nontender, no organomegaly, bowel sounds present Neuro: Moves all extremities in bed, difficult to obtain an accurate neuroexam given patient only follows commands intermittently. No facial deformity, AO x1 Extremities: mild b/l LE edema Data 05/10/24 19:01 05/10/24 19:01 Micro: Microbiology 05/10/24 19:04 Blood Culture - Preliminary Blood SPECIMEN COLLECTED 05/10/24 19:01 Blood Culture - Preliminary Blood SPECIMEN COLLECTED Other data: Radiology Impressions Chest X-Ray 05/10/24 17:52 IMPRESSION: 1. Interval development of consolidation at right mid-lower lung and left lower lung, suggesting atelectasis, aspiration, or pneumonia. Follow-up chest radiographs would be helpful to ensure clearing and to exclude mass. 2. Mild-moderate, right and mild, left pleural effusions. 3. Increased, mild-moderately enlarged heart. Atherosclerosis. Head CT 05/10/24 18:02 IMPRESSION: 1. Moderate cerebral volume loss. 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 Mild-moderate hypodensities at bilateral periventricular white matter and centrum semiovale, suggesting microvascular ischemic changes. 2. Atherosclerosis. Chest CT 05/10/24 19:09 IMPRESSION: 1. Several, < 1 cm, nodular opacities with ground-glass halos scattered within bilateral lungs. Differential diagnosis includes septic emboli, atypical infections, such as TB or fungal, granulomatous diseases, such as sarcoidosis or granulomatosis with polyangiitis, or other inflammatory entities. Mild air-space opacities at periphery of anterior right upper lobe and medial and lateral right middle lobe, possibly reflecting compressive atelectasis or pneumonia. 2. Moderate, right and mild-moderate, left, low density, pleural effusions. 3. Moderate cardiomegaly. Atherosclerosis. 4. 2.2 x 3.1 cm, mildly high attenuation lesion at lower pole of left kidney, only partially within region scanned, indeterminate in nature. Recommend non-emergent MRI without and with contrast or non-emergent CT without and with contrast. MRI is preferred for masses under 1.5 cm. 5. Low attenuation lesion containing a few bubbles of gas and mildly thick spears within peritoneum at midline of anterior upper abdomen, only partially within region scanned. Although this may reflect loop of bowel, fluid collection cannot be excluded. If clinically indicated, abdomen/pelvis CT with IV contrast may be helpful further evaluation. COMMENTS: Consistent with the [employer]'s Incidental Findings Committee white paper (J Am Cyndie Radiol 2018): Any incidental renal lesion less than 1 cm or classified as too small to characterize, or any incidental cystic renal lesion characterized as simple-appearing, is likely benign. No follow-up imaging is recommended for these lesions per consensus recommendations based on imaging criteria. Laboratory Results WBC 6.66 10^3/uL (3.29-11.43) 05/10/24 19: RBC 3.96 10^6/uL (3.85-5.65) 05/10/24 19: Hgb 11.70 g/dL (11.27-16.99) 05/10/24 19: Hct 37.4 % (36-47) 05/10/24 19: MCV 94.4 fl (85-98) 05/10/24 19: MCH 29.5 pg (27-33) 05/10/24: MCHC 31.3 g/dL (30-55) 05/10/24 19: RDW 14.8 % (12.1-15.1) 05/10/24 19: Plt Count 259 10^3/cmm (157-399) 05/10/24 19: MPV 11.9 fL (7.4-10.4) H 05/10/24 19: Neut % (Auto) 69.2 % 05/10/24 19: Lymph % (Auto) 15.3 % 05/10/24 19: [place] % (Auto) 12.8 % 05/10/24 19: Eos % (Auto) 0.6 % 05/10/24 19: Baso % (Auto) 0.6 % 05/10/24 19: Neut # (Auto) 4.61 10^3/uL (1.8-7.7) 05/10/24 19: Lymph # (Auto) 1.0 10^3/uL (0.8-4.8) 05/10/24 19: Foster # (Auto) 0.9 10^3/uL (0.2-0.9) 05/10/24 19: Eos # (Auto) 0.0 10^3/uL (0.0-0.8) 05/10/24 19: Baso # (Auto) 0.0 10^3/uL (0.0-0.1) 05/10/24 19: Nucleated RBC % (auto) 0 % 10/15/24 19:01 Nucleated RBCs # 0.0 /100WBC 05/10/24 19:01 Specimen Type Arterial 05/10/24 20:42 Sample Site Radial, left 05/10/24 20:42 ABG pH 7.49 (7.35-7.45) H 05/10/24 20:42 ABG pCO2 33.6 mmHg (35-45) L 05/10/24 20:42 ABG pO2 88.1 mmHg (80.0-100.0) 05/10/24 20:42 ABG HCO3 25.6 mmol/L (22-26) 05/10/24 20:42 ABG O2 Saturation 97.9 05/10/24 20:42 ABG Base Excess 2.6 mmol/L (-2.0-2.0) H 05/10/24 20:42 Vitaliy Test Pos 05/10/24 20:42 A-a O2 Gradient 2.7 mmHg (5-10) L 05/10/24 20:42 Hematocrit 36.7 % (37-47) L 05/10/24 20:42 Hgb O2 Saturation 95.7 % (95-100) 05/10/24 20:42 Carboxyhemoglobin 1.3 %THgb (0.4-20.1) 05/10/24 20:42 Methemoglobin 0.9 % (0.4-1.5) 05/10/24 20:42 Total Hemoglobin 12.0 g/dL (12-16) 05/10/24 20:42 Sodium 144.0 mmol/L (131-143) H 05/10/24 20:42 Potassium 3.6 mmol/L (3.5-5.0) 05/10/24 20:42 Glucose 101.0 mg/dL (70-115) 05/10/24 20:42 Ionized Calcium 1.3 mmol/L (1.1-1.4) 05/10/24 20:42 O2 Delivery Device Nc 05/10/24 20:42 O2 Liters/Min 2.0 % 05/10/24 20:42 Clinical Training Coordinator ID [email or web address] 05/10/24 20:42 Sodium 140 mmol/L (136-145) 05/10/24 19:01 Potassium 4.1 mmol/L (3.5-5.1) 05/10/24 19:01 Chloride 105 mmol/L (98-107) 05/10/24 19:01 Carbon Dioxide 25 mmol/L (22-29) 05/10/24 19:01 Anion Gap 14.1 (5-19) 05/10/24 19:01 BUN 26 mg/dL (8-23) H 05/10/24 19:01 Creatinine 0.7 mg/dL (0.5-0.9) 05/10/24 19:01 GFR Calculation Not Reportable 05/10/24 19: Glucose 99 mg/dL (65-115) 05/10/24 19: Calculated Osmolality 295 mOsm/kg (285-295) 05/10/24 19:01 Lactic Acid 1.7 mmol/L (0.5-2.2) 05/10/24 19: Calcium 8.9 mg/dL (8.5-10.5) 05/10/24 19:01 Total Bilirubin 0.6 mg/dL (0.15-1.2) 05/10/24 19:01 AST 15 U/L (0-32) 05/10/24 19:01 ALT < 5 U/L (0-33) 05/10/24 19:01 Alkaline Phosphatase 142 U/L (35-105) H 05/10/24 19:01 Troponin T Baseline 49 ng/L (0-10) H 05/10/24 19:01 Troponin T 120 Minute 44.47 ng/L (0-10) H 05/10/24 21:10 Delta Troponin T -4.53 ABS# (0-10) L 05/10/24 21:10 Troponin T Hi Sens 6Hr 50.22 ng/L (0-10) H 05/11/24 01:05 Troponin T Hi Sens 6Hr Delta 1.22 ng/L (0-12) 05/11/24 01:05 NT-Pro-B Natriuret Pep 56207 pg/mL (0-450) H 05/10/24 19:01 Total Protein 6.4 g/dL (6.6-8.7) L 05/10/24 19:01 Albumin 3.5 g/dL (3.5-5.2) 05/10/24 19:01 Globulin 2.9 g/dL (1.3-4.6) 05/10/24 19:01 Procalcitonin 0.10 ng/mL (0-0.5) 05/11/24 01:05 Urine Color Dark yellow (Yellow) A 05/10/24 19:37 Urine Appearance Clear (CLEAR) 05/10/24 19:37 Urine pH 5.0 (5-7) 05/10/24 19:37 Ur Specific [place] 1.038 (1.005-1.030) H 05/10/24 19:37 Urine Protein 2+ (Negative) A 05/10/24 19:37 Urine Glucose (UA) Negative (Normal) 05/10/24 19:37 Urine Ketones Trace (Negative) 05/10/24 19: Urine Blood Negative (Negative) 05/10/24 19: Urine Nitrate Negative (Negative) 05/10/24 19:37 Urine Bilirubin 1+ (Negative) H 05/10/24 19:37 Urine Urobilinogen 1.0 mg/dL (Negative) 05/10/24 19:37 Ur Leukocyte Esterase Trace (Negative) A 05/10/24 19:37 Urine RBC 3-5 /hpf (0-2) 05/10/24 19:37 Urine WBC 6-10 /hpf (0-5) 05/10/24 19:37 Ur Squamous Epith Cells 0-5 /hpf (0-5) 05/10/24 19:37 Amorphous Sediment Not Reportable 05/10/24 19:37 Urine Bacteria None seen /hpf (NONE) 05/10/24 19:37 Hyaline Casts 2.05 /lpf 05/10/24 19:37 Urine Yeast 1+ /hpf H 05/10/24 19:37 Coronavirus (PCR) Negative (Negative) 05/10/24 18:35 Influenza A (PCR) Negative (Negative) 05/10/24 18:35 Influenza Type B (PCR) Negative (Negative) 05/10/24 18:35 RSV (PCR) Negative (Negative) 05/10/24 18:35 A&P Assessment and plan (1) Pleural effusion: Patient with past medical history as above presenting to the hospital today with complaints of being poorly responsive at the care home. Her mental status appears to be more lethargic than baseline. Currently requiring 4 L/min supplemental O2. CT of the chest shows there is bilateral pleural effusion, right worse than left. Right pleural effusion extends into the major fissure. Less than 1 cm nodular opacities with groundglass halos within bilateral lungs, no gross consolidation. Differentials include infectious versus inflammatory, however given lack of [place]ik leukocytosis, afebrile, less likely to be infectious in nature. Check procalcitonin. Empiric ceftriaxone and doxycycline while undergoing evaluation. Favor pleural effusion to be more likely to be transudative in nature. She has recently had reduced dose of Lasix. Elevated BNP and mild lower extremity edema along with worsening pleural effusion likely indicative of acute on chronic diastolic CHF exacerbation. She has received Lasix 40 mg IV in the emergency room. Will continue Lasix 40 mg IV every [address] Lozano catheter to measure accurate output. Closely monitor creatinine while on diuresis. Dose of Lasix may need to be adjusted based on response. May need thoracentesis depending on diuretic response, however goals of care would likely need to be clarified before hand with the patient's family. Unable to reach the daughter at late hour currently. (2) CHF (congestive heart failure): Acute on chronic CHF exacerbation Diuresis as above. Plan DVT prophylaxis: Current continue Pradaxa 150 mg twice daily as patient takes at home DNR/DNI Attestations Medical Necessity Statement*: Greater than 2 midnight admission is anticipated for acute on chronic diastolic CHF exacerbation, possible pneumonia undergoing evaluation. Coding Level of Care Code Acute Code for Chg Fwd High MDM includes number and complexity of problems actively addressed during encounter, amount and/or complexity of data reviewed/ordered and described risk of complication, morbidity or mortality of management as documented Diagnoses Pleural effusion J90 CHF (congestive heart failure) I50.9
[2024-05-11 01:50] LABS: Troponin 5 6HR 50.22 ng/L (0-10); Troponin 5 6HR Delta 1.22 ng/L (0-12)
[2024-05-11] MEDS: hyDRALAzine 20 mg/mL INJ 1 mL 10 MG IVP (03:51)
[2024-05-11] MEDS: albuterol 2.5 mg/3 mL Neb INHALATION (04:20)
[2024-05-11] MEDS: dilTIAZem 5 mg/mL SDV 5 mL 10 MG IVP (04:35)
[2024-05-11] MEDS: FUROsemide 10 mg/mL SDV 2mL 20 MG IVP (04:36)
--- NOTE | 2024-05-11 05:02 | ECG_ITS ---
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 Measurements Intervals [place] Rate: 111 P: 0 OR: 0 QRS: 3 QRSD: 85 T: 202 QT: 365 QTc: 497 Interpretive Statements ATRIAL FIBRILLATION WITH RAPID VENTRICULAR RESPONSE VOLTAGE CRITERIA FOR LVH [MEETS CRITERIA IN ONE OF: R(aVL), S(V1), R(V5), R(V5/V6)+S(V1)] MODERATE T-WAVE ABNORMALITY, CONSIDER LATERAL ISCHEMIA [-0.1+ mV T-WAVE IN I/aVL/V5/V6] MODERATE T-WAVE ABNORMALITY, CONSIDER INFERIOR ISCHEMIA [-0.1+ mV T-WAVE IN II/aVF] Compared to ECG 05/11/2024 01:51:27 Possible ischemia now present Sinus rhythm no longer present T-wave abnormality still present Electronically Signed On 05-11-2024 16:40:30 CDT by Sourav Jama M.D. [email or web address]
[2024-05-11] MEDS: cefTRIAXone 1,000 mg SDV 1000 MG IVP (06:02)
--- NOTE | 2024-05-11 06:26 | PC.NURSE ---
Gave pt hydralazine, around 15 minutes after, pt started becoming tachycardic with afib on monitor, went down check on pt, pt was tachy and started being wheezy, called MD WOODROW ordered 10mg of Cardizem IVP, 20mg lasix, and an albuterol treatment. After giving all three the pt was feeling and looking better. now pt is sitting in the 80s and back in SR. aware of SR.
[2024-05-11] MEDS: doxycycline 100 mg Tablet PO ×2 (08:41→16:59)
[2024-05-11] MEDS: metoprolol tartrate 25 mg Tablet PO ×2 (08:41→20:27)
[2024-05-11] MEDS: carbidopa-levodopa 25-100mg Tablet 1 EACH PO ×3 (08:41→16:59)
[2024-05-11] MEDS: pantoprazole DR 40 mg Tablet PO (08:41)
--- NOTE | 2024-05-11 10:21 | P.EN_ITS ---
Event Note Event Note: I am familiar with Luly Cooper I do believe she is back to her baseline, I remember her from her last visit, she has a very weak voice tone She stating that she was given regular diet at the intermediate, She has a stage II back ulcer At this point she is hemodynamically stable currently on 2 L nasal cannula saturating well Lower extremity swelling noted Mild rhonchi and crackles at the base of the lungs otherwise chest sounding clear on auscultation S1, S2 Variable S1-S2 I do believe her x-ray is consistent with aspiration pneumonia No active signs of bowel obstruction clinically CT scan of chest reviewed I will get KUB as well At this point I will continue diuresis keep her on dysphagia diet Will touch base with her daughter Likely will discharge in next 24 to 48 hours if remains stable she is DNR/DNI
--- NOTE | 2024-05-11 10:24 | PC.CHAP ---
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 [] Patient/Family/Request visit [] Outpatient visit [] Follow-up visit [] Physician referral [] Code/Alert [] Routine visit [] Staff referral [] Actively dying [x] Patient sleeping [] Family support [] [] Out of room [] Palliative care [] [] Receiving care in room [] Pre-surgical visit [] Trauma [] Long length of stay [] ICU visit [] Other: Relational/Emotional Strength [] Patient feels connected with others/family/visitors/staff [] Distress [] Loneliness/isolation [] Abandonment Spirituality of Patient [] Person of Avani [] Attends Mormonism of their Avani [] Believes in Prayer [] Reads Bible or Mosque materials [] There are Spiritual issues to be addressed Banquet Steward Interventions [] Prayer [] Active listening [] Non-anxious presence [] Spiritual/emotional support [] Crisis/trauma care [] Spiritual counseling [] Bereavement support [] Provided bereavement packet [] Provided Bible/devotional materials [] Provided toy/stuffed animal, coloring book to patient or family member [] Provided Communion [] Anointing/[place] [] Salvation [] Completed spiritual assessment [] Other: Impact on Illness or Injury [] Angry [] Fearful [] Anxious [] Often cries [] Exhaustion [] Unable to work [] Unable to attend anabaptist [] Unable to walk/stand [] Unable to read [] Unable to drive [] Unable to eat/drink [] Unable to sleep [] Unable to be with family [] Patient intubated [] Other: Summary Time spent with patient
[2024-05-11] MEDS: FUROsemide 10 mg/mL SDV 4mL 40 MG IVP ×2 (11:21→22:42)
[2024-05-11] MEDS: acetaminophen 325 mg Tablet 650 MG PO (13:57)
--- NOTE | 2024-05-11 15:27 | PC.NURSE ---
This nurse called patients grandson, Jose, to give him an update on pt per the request of Luc , Roslyn, as I was unable to give her an update with her not being on patients PHI.
--- NOTE | 2024-05-11 18:08 | PC.NURSE ---
Pt c/o of generalized pain. This nurse administered po tylenol just before 1400. Pt did not find this helpful. This nurse reached out to Dr. Mckenna, via voalte, to request something else for pain.
[2024-05-12] VITALS (9 sets, daily range): BP systolic 124–144; BP diastolic 73–96; PULSE 93–119; RESP 17–29; TEMP 36.7–37.7; O2SAT 90–94
[2024-05-12] MEDS: cefTRIAXone 1,000 mg SDV 1000 MG IVP (04:23)
[2024-05-12 05:35] LABS: Basophils # 0.1 10^3/uL (0.0-0.1); Basophils % 0.8 %; Eosinophils % 0.1 %; Hematocrit 41.5 % (36-47); Lymphocytes % 12.6 %; Mean Corpuscular HGB Conc 31.8 g/dL (30-55); Mean Corpuscular Hemoglobin 29.9 pg (27-33); Mean Corpuscular Volume 93.9 fl (85-98); Mean Platelet Volume 11.9 fL (7.4-10.4); Monocytes # 0.9 10^3/uL (0.2-0.9); Monocytes % 12.5 %; Neutrophils # 5.53 10^3/uL (1.8-7.7); Neutrophils % 73.3 %; Nucleated Red Blood Cells % 0 %; Platelet Count 299 10^3/cmm (157-399); Red Blood Count 4.42 10^6/uL (3.85-5.65); Red Cell Distribution Width 14.8 % (12.1-15.1); White Blood Count 7.54 10^3/uL (3.29-11.43)
[2024-05-12 05:57] LABS: Alanine Aminotransferase 8 U/L (0-33); Albumin Level 3.6 g/dL (3.5-5.2); Alkaline Phosphatase 142 U/L (35-105); Blood Urea Nitrogen 19 mg/dL (8-23); Carbon Dioxide 28 mmol/L (22-29); Chloride 100 mmol/L (98-107); Globulin 3.7 g/dL (1.3-4.6); Glucose 98 mg/dL (65-115); Osmolality Calculated 294 mOsm/kg (285-295); Sodium 141 mmol/L (136-145); Total Bilirubin 1.1 mg/dL (0.15-1.2); Total Protein 7.3 g/dL (6.6-8.7)
[2024-05-12 06:00] LABS: Anion Gap 16.9 (5-19); Aspartate Amino Transferase 23 U/L (0-32); Potassium 3.9 mmol/L (3.5-5.1)
[2024-05-12 06:11] LABS: Calcium 8.7 mg/dL (8.5-10.5)
[2024-05-12 06:51] LABS: Bacillus cereus group Not Detected (NOT DETECT); Bacillus subtillis group Not Detected (NOT DETECT); Corynebacterium Not Detected (NOT DETECT); Cutibacterium acnes (P.acnes) Not Detected (NOT DETECT); Enterococcus Not Detected (NOT DETECT); Enterococcus faecalis Not Detected (NOT DETECT); Enterococcus faecium Not Detected (NOT DETECT); Lactobacillus species Not Detected (NOT DETECT); Listeria Not Detected (NOT DETECT); Listeria monocytogenes Not Detected (NOT DETECT); Micrococcus Not Detected (NOT DETECT); Pan Candida Not Detected (NOT DETECT); Pan Gram-Negative Not Detected (NOT DETECT); Staphylococcus epidermidis Not Detected (NOT DETECT); Staphylococcus lugdunensis Not Detected (NOT DETECT); Staphylococcus species Not Detected (NOT DETECT); Streptococcus agalactiae Not Detected (NOT DETECT); Streptococcus anginosus group Not Detected (NOT DETECT); Streptococcus pneumoniae Not Detected (NOT DETECT); Streptococcus pyogenes Not Detected (NOT DETECT); Streptococcus species Not Detected (NOT DETECT)
[2024-05-12] MEDS: metoprolol tartrate 25 mg Tablet PO (08:22)
[2024-05-12] MEDS: carbidopa-levodopa 25-100mg Tablet 1 EACH PO ×3 (08:22→16:35)
[2024-05-12] MEDS: pantoprazole DR 40 mg Tablet PO (08:23)
[2024-05-12] MEDS: doxycycline 100 mg Tablet PO ×2 (08:23→18:00)
[2024-05-12] MEDS: lanolin oint 7 gm 1 APPLIC TOPICAL (09:01)
[2024-05-12] MEDS: acetaminophen 325 mg Tablet 650 MG PO (09:01)
--- NOTE | 2024-05-12 09:24 | P.PN_ITS ---
Subjective 2 Subjective: Patient not endorsing overnight events however stating that she is hurting all over, she has stage II sacral ulcer Afebrile CBC BMP unremarkable, she seems to be back to her baseline Currently on 0.5 L nasal cannula, tachycardia noted overnight Vitals/I&O/Wt Last Vital Signs Temp 98.0 F 05/12/24 07:15 Pulse 119 H 05/12/24 07:15 Resp 25 H 05/12/24 07:15 BP 135/95 05/12/24 07:15 Pulse Ox 93 05/12/24 07:15 O2 Del Method Nasal Cannula 05/12/24 07:15 O2 Flow Rate 4 05/11/24 04:20 05/11/24 05/12/24 05/12/24 22:59 06:59 14:59 Intake Total 60 / 240 240 / 240 Output Total 200 / 2900 1400 / 4300 Balance -140 / -2660 -1400 / -4060 240 / 240 Weight last 48 hrs Weight 55.6 kg Weight 55.6 kg Weight 56 kg Weight 63.503 kg Physical Exam 2 Narrative: Lower extremity swelling noted Hemodynamically stable 0.5 L nasal cannula Bilateral breath sounds with rhonchi Able to comprehend and answer questions appropriate Fatigued and lethargic I do not see any focal deficit She has generalized fatigue and malaise S1, S2 atrial flutter at 120 Urinary Catheter Management: Lozano: Cath Placed During This Visit: yes Reason for Continuing Indwelling Catheter: Accurate Measurement of Urinary Output in Critically Ill Patients Urinary Catheter Date of Insertion: 05/11/24 Urinary Catheter Time of Insertion: 01:30 Data 05/12/24 04:36 05/12/24 04:36 Micro: Microbiology 05/10/24 19:04 Blood Culture - Preliminary Blood 05/10/24 19:01 Blood Culture - Preliminary Blood NEGATIVE TO DATE A&P Assessment and plan (1) Pleural effusion: (2) CHF (congestive heart failure): Plan Shortness of breath related pleural effusion with underlying CHF, preserved action fraction Continue diuresis We have been able to successfully wean off oxygen to 0.5 L nasal cannula Disposition: Likely back to the facility by tomorrow Atrial flutter with RVR Increase the dose of metoprolol continue anticoagulating agent dabigatran for now No need to repeat labs for tomorrow Generalized malaise fatigue and body pain: Only Tylenol no need to opioids DVT prophylaxis: Current continue Pradaxa 150 mg twice daily as patient takes at home DNR/DNI Attestations 2 Medical Necessity Statement*: Discharge likely by tomorrow Diagnoses Pleural effusion J90 CHF (congestive heart failure) I50.9
[2024-05-12] MEDS: FUROsemide 10 mg/mL SDV 4mL 40 MG IVP ×2 (11:21→22:21)
[2024-05-12] MEDS: metoprolol tartrate 25 mg Tablet 50 MG PO (20:36)
[2024-05-13] VITALS (7 sets, daily range): BP systolic 118–147; BP diastolic 70–91; PULSE 71–92; RESP 18–30; TEMP 36.6–36.9; O2SAT 92–94
[2024-05-13] MEDS: cefTRIAXone 1,000 mg SDV 1000 MG IVP (05:22)
[2024-05-13] MEDS: pantoprazole DR 40 mg Tablet PO (08:33)
[2024-05-13] MEDS: doxycycline 100 mg Tablet PO (08:33)
[2024-05-13] MEDS: metoprolol tartrate 25 mg Tablet 50 MG PO (08:33)
[2024-05-13] MEDS: carbidopa-levodopa 25-100mg Tablet 1 EACH PO ×3 (08:33→16:41)
--- NOTE | 2024-05-13 09:04 | P.DS_ITS ---
Discharge Providers Date of Admission: 05/10/24 23:25 Date of Discharge: May 13, 2024 Attending Provider at Admission: Kennedi Romero MD Attending Provider at Discharge: Rogerio Mckenna MD Primary Care Provider: BRETT Perry Diagnoses at Discharge Discharge Diagnosis (1) Pleural effusion: Status: Acute (2) CHF (congestive heart failure): Status: Acute Reason for Visit Reason for Visit: Unresp, AMS Hospital Course Hospital Course 78-year female who is a resident of shelter, gets level 4 dysphagia diet, bedbound, uses wheelchair at the shelter, does not use oxygen on daily basis, has diastolic CHF, hospice was referred at the discharge during last admission however patient and daughter do not think that is needed at this point, presented back with shortness of breath, worsening of pleural effusion and diastolic CHF exacerbation, we were able to control her heart rate atrial flutter RVR with oral medications continue to hold dabigatran, after aggressive diuresis her shortness of breath improved, she is doing well on room air, hence we are deciding to send her back to the facility, daughter was updated at the time of discharge as well she is in agreement. I will only give her 3 more days of doxycycline. Her CT chest has multiple findings, she remained afebrile, no leukocytosis she is not requiring oxygen, we have not seen any positive blood cultures, she does have stage II sacral area ulcer, Lozano catheter will be removed before discharge, she also had multiple bubbles anterior abdomen but she tolerated her diet, no nausea or vomiting, abdominal sound positive on auscultation, abdomen is soft no sign of peritonitis. No signs of obstruction. Patient seems to have multiple calcified granulomas although her around her lungs and liver and spleen. Patient has history of laminectomy which is evident as well on the CT scan. Physical Exam Narrative: Gets pur?ed diet Currently on room air Atrial flutter heart rate around 90s Blood pressure 147/90 Currently doing well At baseline she has a very weak tone of voice But able to answer questions appropriately Urinary Catheter Management: Lozano: Cath Placed During This Visit: yes Reason for Continuing Indwelling Catheter: Accurate Measurement of Urinary Output in Critically Ill Patients Urinary Catheter Date of Insertion: 05/11/24 Urinary Catheter Time of Insertion: 01:30 Discharge Data Studies Completed and Pending Completed Studies During Hospitalization Category Date Time Status CT chest wo con [id number] Stat Cat Scan 05/10/24 19:[address] head wo con* [id number] Stat Cat Scan 05/10/24 18:02 Completed XR chest 1V portable [id number] Stat Exams 05/10/24 17:52 Completed Pending at discharge Category Date Time Status Blood Culture Stat Lab 05/10/24 19:04 Results Radiology Impressions Chest X-Ray 05/10/24 17:52 IMPRESSION: 1. Interval development of consolidation at right mid-lower lung and left lower lung, suggesting atelectasis, aspiration, or pneumonia. Follow-up chest radiographs would be helpful to ensure clearing and to exclude mass. 2. Mild-moderate, right and mild, left pleural effusions. 3. Increased, mild-moderately enlarged heart. Atherosclerosis. Head CT 05/10/24 18:02 IMPRESSION: 1. Moderate cerebral volume loss. 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 Mild-moderate hypodensities at bilateral periventricular white matter and centrum semiovale, suggesting microvascular ischemic changes. 2. Atherosclerosis. Chest CT 05/10/24 19:09 IMPRESSION: 1. Several, < 1 cm, nodular opacities with ground-glass halos scattered within bilateral lungs. Differential diagnosis includes septic emboli, atypical infections, such as TB or fungal, granulomatous diseases, such as sarcoidosis or granulomatosis with polyangiitis, or other inflammatory entities. Mild air-space opacities at periphery of anterior right upper lobe and medial and lateral right middle lobe, possibly reflecting compressive atelectasis or pneumonia. 2. Moderate, right and mild-moderate, left, low density, pleural effusions. 3. Moderate cardiomegaly. Atherosclerosis. 4. 2.2 x 3.1 cm, mildly high attenuation lesion at lower pole of left kidney, only partially within region scanned, indeterminate in nature. Recommend non-emergent MRI without and with contrast or non-emergent CT without and with contrast. MRI is preferred for masses under 1.5 cm. 5. Low attenuation lesion containing a few bubbles of gas and mildly thick spears within peritoneum at midline of anterior upper abdomen, only partially within region scanned. Although this may reflect loop of bowel, fluid collection cannot be excluded. If clinically indicated, abdomen/pelvis CT with IV contrast may be helpful further evaluation. COMMENTS: Consistent with the [employer]'s Incidental Findings Committee white paper (J Am Cyndie Radiol 2018): Any incidental renal lesion less than 1 cm or classified as too small to characterize, or any incidental cystic renal lesion characterized as simple-appearing, is likely benign. No follow-up imaging is recommended for these lesions per consensus recommendations based on imaging criteria. Laboratory Results WBC 7.54 10^3/uL (3.29-11.43) 05/12/24 04:36 RBC 4.42 10^6/uL (3.85-5.65) 05/12/24 04:36 Hgb 13.20 g/dL (11.27-16.99) 05/12/24 04:36 Hct 41.5 % (36-47) 05/12/24 04:36 MCV 93.9 fl (85-98) 05/12/24 04:36 MCH 29.9 pg (27-33) 05/12/24 04:36 MCHC 31.8 g/dL (30-55) 05/12/24 04:36 RDW 14.8 % (12.1-15.1) 05/12/24 04:36 Plt Count 299 10^3/cmm (157-399) 05/12/24 04:36 MPV 11.9 fL (7.4-10.4) H 05/12/24 04:36 Neut % (Auto) 73.3 % 05/12/24 04:36 Lymph % (Auto) 12.6 % 05/12/24 04:36 [place] % (Auto) 12.5 % 05/12/24 04:36 Eos % (Auto) 0.1 % 05/12/24 04:36 Baso % (Auto) 0.8 % 05/12/24 04:36 Neut # (Auto) 5.53 10^3/uL (1.8-7.7) 05/12/24 04:36 Lymph # (Auto) 1.0 10^3/uL (0.8-4.8) 05/12/24 04:36 [place] # (Auto) 0.9 10^3/uL (0.2-0.9) 05/12/24 04:36 Eos # (Auto) 0.0 10^3/uL (0.0-0.8) 05/12/24 04:36 Baso # (Auto) 0.1 10^3/uL (0.0-0.1) 05/12/24 04:36 Nucleated RBC % (auto) 0 % 05/12/24 04:36 Nucleated RBCs # 0.0 /100WBC 05/12/24 04:36 Specimen Type Arterial 05/10/24 20:42 Sample Site Radial, left 05/10/24 20:42 ABG pH 7.49 (7.35-7.45) H 05/10/24 20:42 ABG pCO2 33.6 mmHg (35-45) L 05/10/24 20:42 ABG pO2 88.1 mmHg (80.0-100.0) 05/10/24 20:42 ABG HCO3 25.6 mmol/L (22-26) 05/10/24 20:42 ABG O2 Saturation 97.9 05/10/24 20:42 ABG Base Excess 2.6 mmol/L (-2.0-2.0) H 05/10/24 20:42 Vitaliy Test Pos 05/10/24 20:42 A-a O2 Gradient 2.7 mmHg (5-10) L 05/10/24 20:42 Hematocrit 36.7 % (37-47) L 05/10/24 20:42 Hgb O2 Saturation 95.7 % (95-100) 05/10/24 20:42 Carboxyhemoglobin 1.3 %THgb (0.4-20.1) 05/10/24 20:42 Methemoglobin 0.9 % (0.4-1.5) 05/10/24 20:42 Total Hemoglobin 12.0 g/dL (12-16) 05/10/24 20:42 Sodium 144.0 mmol/L (131-143) H 05/10/24 20:42 Potassium 3.6 mmol/L (3.5-5.0) 05/10/24 20:42 Glucose 101.0 mg/dL (70-115) 05/10/24 20:42 Ionized Calcium 1.3 mmol/L (1.1-1.4) 05/10/24 20:42 O2 Delivery Device Nc 05/10/24 20:42 O2 Liters/Min 2.0 % 05/10/24 20:42 Dental Intern ID [email or web address] 05/10/24 20:42 Sodium 141 mmol/L (136-145) 05/12/24 04:36 Potassium 3.9 mmol/L (3.5-5.1) 05/12/24 04:36 Chloride 100 mmol/L (98-107) 05/12/24 04:36 Carbon Dioxide 28 mmol/L (22-29) 05/12/24 04:36 Anion Gap 16.9 (5-19) 05/12/24 04:36 BUN 19 mg/dL (8-23) 05/12/24 04:36 Creatinine 0.7 mg/dL (0.5-0.9) 05/12/24 04:36 GFR Calculation Not Reportable 05/12/24 04:36 Glucose 98 mg/dL (65-115) 05/12/24 04:36 Calculated Osmolality 294 mOsm/kg (285-295) 05/12/24 04:36 Lactic Acid 1.7 mmol/L (0.5-2.2) 05/10/24 19:01 Calcium 8.7 mg/dL (8.5-10.5) 05/12/24 04:36 Magnesium 2.0 mg/dL (1.7-2.3) 05/12/24 04:36 Total Bilirubin 1.1 mg/dL (0.15-1.2) 05/12/24 04:36 AST 23 U/L (0-32) 05/12/24 04:36 ALT 8 U/L (0-33) 05/12/24 04:36 Alkaline Phosphatase 142 U/L (35-105) H 05/12/24 04:36 Troponin T Baseline 49 ng/L (0-10) H 05/10/24 19:01 Troponin T 120 Minute 44.47 ng/L (0-10) H 05/10/24 21:10 Delta Troponin T -4.53 ABS# (0-10) L 05/10/24 21:10 Troponin T Hi Sens 6Hr 50.22 ng/L (0-10) H 05/11/24 01:05 Troponin T Hi Sens 6Hr Delta 1.22 ng/L (0-12) 05/11/24 01:05 NT-Pro-B Natriuret Pep 44799 pg/mL (0-450) H 05/10/24 19:01 Total Protein 7.3 g/dL (6.6-8.7) 05/12/24 04:36 Albumin 3.6 g/dL (3.5-5.2) 05/12/24 04:36 Globulin 3.7 g/dL (1.3-4.6) 05/12/24 04:36 Procalcitonin 0.10 ng/mL (0-0.5) 05/11/24 01:05 Urine Color Dark yellow (Yellow) A 05/10/24 19:37 Urine Appearance Clear (CLEAR) 05/10/24 19:37 Urine pH 5.0 (5-7) 05/10/24 19:37 Ur Specific [place] 1.038 (1.005-1.030) H 05/10/24 19:37 Urine Protein 2+ (Negative) A 05/10/24 19:37 Urine Glucose (UA) Negative (Normal) 05/10/24 19:37 Urine Ketones Trace (Negative) 05/10/24 19:37 Urine Blood Negative (Negative) 05/10/24 19:37 Urine Nitrate Negative (Negative) 05/10/24 19:37 Urine Bilirubin 1+ (Negative) H 05/10/24 19:37 Urine Urobilinogen 1.0 mg/dL (Negative) 05/10/24 19:37 Ur Leukocyte Esterase Trace (Negative) A 05/10/24 19:37 Urine RBC 3-5 /hpf (0-2) 05/10/24 19:37 Urine WBC 6-10 /hpf (0-5) 05/10/24 19:37 Ur Squamous Epith Cells 0-5 /hpf (0-5) 05/10/24 19:37 Amorphous Sediment Not Reportable 05/10/24 19:37 Urine Bacteria None seen /hpf (NONE) 05/10/24 19:37 Hyaline Casts 2.05 /lpf 05/10/24 19:37 Urine Yeast 1+ /hpf H 05/10/24 19:37 Coronavirus (PCR) Negative (Negative) 05/10/24 18:35 Influenza A (PCR) Negative (Negative) 05/10/24 18:35 Influenza Type B (PCR) Negative (Negative) 05/10/24 18:35 RSV (PCR) Negative (Negative) 05/10/24 18:35 Vitals Last Vital Signs Temp 98.1 F 05/13/24 07:45 Pulse 92 05/13/24 07:45 Resp 25 H 05/13/24 07:45 BP 147/91 05/13/24 07:45 Pulse Ox 94 05/13/24 07:45 O2 Del Method Room Air 05/13/24 07:45 O2 Flow Rate 4 05/11/24 04:20 Discharge Plan Discharge Patient Disposition: Xfer SNF Condition: Stable Prescriptions: New doxycycline monohydrate 100 mg Tablet 100 mg PO BID Qty: 6 0RF Continued multivitamin Tablet 1 tab PO DAILY dabigatran etexilate [Pradaxa] 150 mg capsule 150 mg PO BID sodium phosphates 19-7 gram/197 mL enema 118 ml NM DAILY PRN (Reason: Constipation) polyethylene glycol 3350 [Miralax] 17 gram/dose powder 4 g PO DAILY PRN (Reason: Constipation) (DME) trapeze bar See Rx Instructions .Route .MEDSUPPLY Qty: 1 0RF Rx Instructions: Utilize as Directed carbidopa-levodopa 25-100 mg tablet 1 tab PO TID@0815,1215,1615 Rx Instructions: one tablet by mouth once a day and two tablets by mouth two times a day ondansetron HCl 4 mg tablet 4 mg PO Q6H PRN (Reason: Nausea) guaifenesin [Mucinex] 600 mg Tablet Extended Release 12hr 600 mg PO Q12H PRN (Reason: Congestion) sennosides [senna] 8.6 mg Tablet 17.2 mg PO DAILY PRN (Reason: Constipation) Rx Instructions: 2 tabs potassium chloride [Klor-Con M20] 20 mEq Tablet,Er Particles/Crystals 20 meq PO DAILY PRN (Reason: with lasix only) Qty: 30 0RF furosemide [Lasix] 20 mg tablet 20 mg PO DAILY PRN (Reason: Cannot lay flat, short of breath) Qty: 30 3RF Rx Instructions: Significant shortness of breath or weight gain more than 3 pounds in 1 day Discharge Orders: Discharge Order (Routine); Ordered 05/13/24 Ordered By: Rogerio Mckenna Referrals: Myla Bella FNP [Primary Care Provider] - 05/23/24 10:00 am Discharge Diet: As Directed Patient Instructions: Doxycycline (By mouth), Heart Failure (DC), Pneumonitis (DC), Pleural Effusion (DC), Altered Mental Status (ED), Opioid Safety Activity Restrictions/Additional Instructions: pureed diet Discharge Attestations Time Spent in Discharge Care*: greater than 30 min Quality Metrics Clinical Quality Measures [ No reported AMI, CVA or VTE this stay] Coding Level of Care Code Acute Code for Chg Fwd Diagnoses Pleural effusion J90 CHF (congestive heart failure) I50.9
--- NOTE | 2024-05-13 10:18 | PC.NURSE ---
Addendum entered by Monika Mccartney RN 05/13/24 10:19: [facility] is going to sent transportation for her. Original Note: Report is called to NANETTE Gurrola at [facility].
--- NOTE | 2024-05-13 10:43 | PC.SOCIAL ---
IMM Update Pg. 2 of IMM updated and reviewed with patient, who verbalized understanding. Copy provided.
--- NOTE | 2024-05-13 17:54 | PC.NURSE ---
[facility] came to transport patient to [facility] at 1750.
== END 2024-05-13 17:54 | disposition intermediate care facility (04) | DRG 177 ==
LOC: ER 21:15 → CSU 23:25
PROVIDERS: Admitting Provider Student in an Organized Health Care Education/Training Program; Emergency Provider Emergency Medicine; PCP Nurse Practitioner Family; Visit Provider Internal Medicine
DX: J69.0 Pneumonitis due to inhalation of food and vomit (principal); I50.31 Acute diastolic (congestive) heart failure; I48.91 Unspecified atrial fibrillation; R41.82 Altered mental status, unspecified; G20.A1 Parkinson's disease without dyskinesia, without mention of fluctuations; R91.8 Other nonspecific abnormal finding of lung field; L98.499 Non-pressure chronic ulcer of skin of other sites with unspecified severity; Z79.01 Long term (current) use of anticoagulants; Z74.01 Bed confinement status
CPT/HCPCS: 0241U; 36415; 36600; 51702; 70450; 71045; 71250; 80051; 80053; 81001; 82330; 82805; 83605; 83735; 83880; 84145; 84484; 85025; 87040; 87150; 87205; 93005; 94640; 96365; 96375; 96376; 99285; A9270; J0360; J0696; J1940; J3490; J7613